=== PATIENT | male | born 1960 | race Caucasian/White ===

== ENCOUNTER 2017-03-26 09:16 | Emergency (ER) | payer MEDICARE ==
[~2017-03-26] VITALS: Ht 177.8 cm; Wt 163.3 kg
[~2017-03-26 09:16] MED LIST: ABILIFY15 MG PO; BACTRIM DS 8001 TAB PO; BACTROBAN OINT0.9 GM NAS; CIPRO500 MG PO; CIPROFLOXACIN500 MG PO; COGENTIN0.5 MG PO; CUBICIN500 MG IV; DAYPRO600 M1 PO; DEPAKOTE ER250 MG PO; DEPAKOTE500 MG PO; DOXYCYCLINE HY100 M5 PO; GABAPENTIN300 MG PO; HUMALOG100 U/ML SC; HYDROCODONE BIT1 T11 PO; HYDROCODONE/ACE1 T11 PO; HYDROCODONE/ACE1 T12 PO; INVEGA6 MG PO; KEFLEX500 MG PO; LANTUS100 U/ML SC; LASIX40 MG PO; LEVOFLOXACIN500 MG PO; LISINOPRIL2.5 MG PO; METFORMIN HCL1000 MG PO; MIRTAZAPINE15 M2 PO; NEURONTIN300 MG PO; POTASSIUM20 MEQ PO; PRAVASTATIN SOD40 MG PO; PROZAC20 MG PO; REQUIP3 MG PO; REQUIP4 MG PO; RISPERDAL M-TAB2 MG PO; RISPERDAL0.25 MG PO; RISPERDAL1 M1 PO; RISPERDAL2 M1 PO; ROBAXIN750 MG PO; ROPINIROLE HYDRO3 MG PO; SEROQUEL XR300 MG PO; SIMVASTATIN40 MG PO; TRICOR145 MG PO; VICODIN 5/500 505 MG PO; VICODIN 500 MG-1 TAB PO; VICODIN ES 7501 TAB PO; VISTARIL25 M2 PO; VISTARIL25 MG PO; VITAMIN D50000 I1 PO; WARFARIN; WARFARIN10 MG PO; XARE15TA PO; XARE20MG PO; ZAROXOLYN2.5 MG PO; Zaroxolyn,Diul2.5 MG PO
[2017-03-26] MEDS ORDERED: ZOCOR40 MG PO (09:28)
[2017-03-26] MEDS ORDERED: XARE20MG PO (09:28)
[2017-03-26] MEDS ORDERED: METFORMIN1000 MG PO (09:28)
[2017-03-26] MEDS ORDERED: RISPERDAL2 M1 PO (09:29)
[2017-03-26] MEDS ORDERED: GABAPENTIN600 MG PO (09:29)
[2017-03-26] MEDS ORDERED: REQUIP3 M1 PO (09:29)
[2017-03-26] MEDS ORDERED: DAILY VALUE1 EACH PO (09:30)
[2017-03-26] MEDS ORDERED: DEPAKOTE DR500 MG PO (09:30)
[2017-03-26] MEDS ORDERED: ATIVAN0.5 MG PO (09:30)
[2017-03-26 09:41] LABS: BASO % 0.5 % (0.0-1.0); EOS # 0.2 10*3/uL (0.0-0.4); EOS % 2.5 % (1.0-4.0); HEMATOCRIT 42.9 % (42.0-52.0); HEMOGLOBIN 14.7 g/dl (14.0-18.0); IG # 0.1 10*3/uL (0.0-0.1); LYMPH # 2.4 10*3/uL (1.3-4.4); LYMPH % 27.9 % (27.0-41.0); MEAN CELL VOLUME 92.1 fl (80.0-94.0); MEAN CORPUSCULAR HGB 31.5 pg (27.0-31.0); MEAN CORPUSCULAR HGB CONC 34.3 g/dl (33.0-37.0); MONO # 0.8 10*3/uL (0.1-1.0); MONO % 8.9 % (3.0-9.0); NEUT % 59.6 % (47.0-73.0); PLATELET COUNT AUTOMATED 198 10*3/uL (130-400); RED BLOOD COUNT 4.66 10*6/uL (4.50-5.90); RED CELL DISTRI WIDTH 12.2 % (0-14.5); WHITE BLOOD COUNT 8.4 10*3/uL (4.8-10.8)
[2017-03-26 09:56] LABS: ALBUMIN 2.8 gm/dl (3.1-4.5); ALKALINE PHOSPHATASE 83 U/L (45-117); BILIRUBIN, TOTAL 0.6 mg/dl (0.2-1.0); BUN 12 mg/dl (7-24); CARBON DIOXIDE 25 mmol/L (21-32); CHLORIDE 106 mmol/L (98-107); EST GLOM FILT AFRICAN AMERICAN > 60 ml/min; GLUCOSE 260 mg/dL (65-99); POTASSIUM 4.4 mmol/L (3.5-5.1); SGOT/AST 10 IU/L (3-35); SGPT/ALT 19 U/L (12-78); SODIUM 143 mmol/L (136-145); TOTAL PROTEIN 6.2 gm/dL (6.4-8.2)
[2017-03-26 10:14] LABS: BILIRUBIN NEGATIVE (NEGATIVE); BLOOD NEGATIVE (NEGATIVE); CLARITY SL CLOUDY (CLEAR); COLOR YELLOW (YELLOW); GLUCOSE 3+ (NEGATIVE); KETONE TRACE (NEGATIVE); LEUKO ESTERASE NEGATIVE (NEGATIVE); NITRITE NEGATIVE (NEGATIVE); PROTEIN NEGATIVE (NEGATIVE)
[2017-03-26 10:22] LABS: EPITHELIAL CELLS 0-2; RBC 0-2 rbc/hpf (0-2); URINE REFLEX COMMENT YES (NO); WBC 41-50 wbc/hpf (0-5)
[2017-03-26 10:24] LABS: URINE AMPHETAMINES < 1000 (1000ng/ml); URINE BARBITURATES < 200 (200ng/ml); URINE COCAINE < 300 (300ng/ml)
== END 2017-03-26 20:35 | disposition home health service (06) ==
LOC: ED 09:16
PROVIDERS: Registered Nurse
DX: R45.851 Suicidal ideations (principal); T40.2X1A Poisoning by other opioids, accidental (unintentional), initial encounter; G89.29 Other chronic pain; M54.9 Dorsalgia, unspecified; Z88.0 Allergy status to penicillin; Z88.1 Allergy status to other antibiotic agents; Z90.49 Acquired absence of other specified parts of digestive tract; Z79.899 Other long term (current) drug therapy

== ENCOUNTER 2017-03-27 01:32 | Emergency (ER) | payer MEDICARE ==
[~2017-03-27] VITALS: Ht 177.8 cm; Wt 163.3 kg
[~2017-03-27 01:32] MED LIST changes: +ATIVAN0.5 MG PO; +DAILY VALUE1 EACH PO; +DEPAKOTE DR500 MG PO; +GABAPENTIN600 MG PO; +METFORMIN1000 MG PO; +REQUIP3 M1 PO; +ZOCOR40 MG PO
[2017-03-27 02:15] LABS: BASO % 0.3 % (0.0-1.0); EOS # 0.3 10*3/uL (0.0-0.4); EOS % 2.5 % (1.0-4.0); HEMATOCRIT 42.1 % (42.0-52.0); HEMOGLOBIN 14.5 g/dl (14.0-18.0); IG # 0.1 10*3/uL (0.0-0.1); LYMPH # 2.8 10*3/uL (1.3-4.4); LYMPH % 28.8 % (27.0-41.0); MEAN CELL VOLUME 90.7 fl (80.0-94.0); MEAN CORPUSCULAR HGB 31.3 pg (27.0-31.0); MEAN CORPUSCULAR HGB CONC 34.4 g/dl (33.0-37.0); MEAN PLATELET VOLUME 9.8 fl (9.6-12.3); MONO # 0.9 10*3/uL (0.1-1.0); NEUT # 5.8 10*3/uL (2.3-7.9); NEUT % 58.9 % (47.0-73.0); PLATELET COUNT AUTOMATED 202 10*3/uL (130-400); RED BLOOD COUNT 4.64 10*6/uL (4.50-5.90); RED CELL DISTRI WIDTH 12.1 % (0-14.5); WHITE BLOOD COUNT 9.8 10*3/uL (4.8-10.8)
[2017-03-27 02:26] LABS: BUN 18 mg/dl (7-24); CARBON DIOXIDE 26 mmol/L (21-32); CHLORIDE 104 mmol/L (98-107); EST GLOM FILT AFRICAN AMERICAN > 60 ml/min; GLUCOSE 261 mg/dL (65-99); SODIUM 142 mmol/L (136-145)
== END 2017-03-27 16:09 ==
LOC: ED 01:32
PROVIDERS: Emergency Medicine Emergency Medical Services
DX: F32.9 Major depressive disorder, single episode, unspecified (principal); I48.2 Chronic atrial fibrillation; E78.5 Hyperlipidemia, unspecified; I10 Essential (primary) hypertension; E11.621 Type 2 diabetes mellitus with foot ulcer; E11.40 Type 2 diabetes mellitus with diabetic neuropathy, unspecified; M19.90 Unspecified osteoarthritis, unspecified site; F31.9 Bipolar disorder, unspecified; F25.0 Schizoaffective disorder, bipolar type; Z88.0 Allergy status to penicillin; Z86.718 Personal history of other venous thrombosis and embolism; Z88.1 Allergy status to other antibiotic agents; Z79.899 Other long term (current) drug therapy

== ENCOUNTER 2017-05-03 09:08 | Inpatient (IN) | payer MEDICARE ==
[~2017-05-03] VITALS: Ht 177.8 cm; Wt 152.1 kg
--- NOTE | ~2017-05-03 | PR ---
[place], [place] PROGRESS NOTE [id number] UNIT #: [id number] ROOM: 529 DOCTOR: GIULIANA HACKETT DPM BIRTHDATE: [birth year] DOS: SUBJECTIVE: The patient was seen for followup of cellulitis of the right leg ulceration, plantar right hallux and trauma to the left hallux nail bed. OBJECTIVE: There is decreased erythema and edema to the lower right leg. Decreased pain noted, improving with the Tubigrip. Bilateral hallux improving. Left hallux nail bed granulating well without infection. Ulceration to plantar right hallux improving also at this time. ASSESSMENT: Cellulitis, lymphedema of right lower leg. Improving ulceration to lateral right hallux, post-trauma to the nail bed of left hallux. PLAN: Evaluation and management. Continue Tubigrip. Discussed with the patient that I think he is okay to be discharged tomorrow from Podiatry standpoint. The patient will be followed at the wound care center with Dr. Jenkins. I discussed this case with Dr. Jenkins for followup of the lower extremity edema, erythema and the ulceration to the plantar right hallux. The patient will be seen by Dr. Moore if he is still in house tomorrow. GIULIANA HACKETT DPM CM:VANESSA [phone] GIULIANA HACKETT DPM 05/06/17 1542 interface
--- NOTE | ~2017-05-03 | PR ---
[place], [place] PROGRESS NOTE NAME: OLLIE GONZALEZ UNIT #: [id number] ROOM: 529 DOCTOR: GIULIANA HACKETT DPM BIRTHDATE: [birth year] DOS: 05/04/2017 SUBJECTIVE: The patient was seen for followup of cellulitis, edema of the right leg and ulceration of the right great toe and post-self nail avulsion of the left hallux. The patient is still experiencing discomfort at this time. OBJECTIVE: There is decreased edema and erythema of the right lower leg. The ulceration of plantar right hallux is still full thickness subcutaneous tissue level. No signs of purulent drainage or foul odor noted at this time. The left hallux nail plate is improving with conservative treatment. IMAGING: The patient's right foot MRI revealed ulceration at plantar aspect of the right hallux with evidence of diffuse cellulitis, significant soft tissue swelling, no drainable abscess or fluid collection, myositis of intrinsic muscles noted. No evidence of acute osteomyelitis. ASSESSMENT: Cellulitis, edema of lower right leg, ulceration of plantar right hallux, post-nail avulsed contusion with damaged nail, left hallux. PLAN: Continue antibiotics and Tubigrip. Continue local wound care. The patient will be seen tomorrow. Possible application of Unna boots if warranted and cellulitis has decreased to the right lower leg. GIULIANA HACKETT DPM CM:VANESSA [phone] GIULIANA HACKETT DPM 05/04/175 interface
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
--- NOTE | ~2017-05-03 | CON ---
[place], [place] REPORT OF CONSULTATION NAME: OLLIE GONZALEZ UNIT #: [id number] ROOM: 529 DOCTOR: GIULIANA HACKETT DPM BIRTHDATE: [birth year] DOS: 05/03/2017 SUBJECTIVE: The patient presents as a 57-year-old male with chief complaint of having pain in both feet. The patient self avulsed his left great toenail. He has had an ulcer to the bottom of his right great toe for over a month. He has had redness and swelling to the leg. The patient admits to intermittent fevers up to 100 over the past few days. PAST MEDICAL HISTORY: Adjustment disorder with depressed mood, chronic AFib, depressed, bipolar disorder, diabetes type 2, hyperlipidemia, hypertension, history of DVT, lymphedema of both lower extremities, acute neuropathy, obesity, osteoarthritis, restless leg syndrome, schizoaffective disorder bipolar type. PAST SURGICAL HISTORY: Cholecystectomy and umbilical hernia repair. SOCIAL HISTORY: Denies alcohol, illicit drug use or tobacco. FAMILY HISTORY: Mother , unknown cause. Father is estranged. ALLERGIES: PENICILLIN, CHOCOLATE FLAVOR, MINOCYCLINE. PHYSICAL EXAMINATION: EXTREMITIES: Lower extremity examination, pedal pulses nonpalpable bilateral due to edema. There is erythema and cellulitis to the right lower extremity, lymphedema, venous insufficiency. Venous Doppler was negative for DVT. There is self avulsed left hallux nail plate noted. No signs of sinus tract or abscess. Radiographs of the left foot revealed extensive soft tissue edema. No acute fracture noted. There is an ulceration, which is full thickness to subcutaneous tissue level plantar aspect right hallux evident for over a month. ASSESSMENT: Possible underlying osteomyelitis, right hallux; diabetic ulceration, right hallux. Venous stasis, lymphedema, cellulitis right leg. Self avulsed left hallux nail plate. PLAN: Evaluation and management. Ordered arterial vascular testing Doppler bilateral lower extremity. Ordered an MRI of the right forefoot to rule out underlying osteomyelitis of the right hallux secondary to longstanding ulcerations, cellulitis, and edema. The patient has already had pending radiographs ordered of the right foot. Continue Bactroban dressings to the right hallux. The patient will be seen again tomorrow for followup. [place], [place] REPORT OF CONSULTATION NAME: OLLIE GONZALEZ UNIT #: [id number] ROOM: 529 DOCTOR: GIULIANA HACKETT DPM BIRTHDATE: [birth year] GIULIANA HACKETT DPM CM:CONSTR:REPORT OF CONSULTATION 1630 05/03/17 4876 interface
--- NOTE | ~2017-05-03 | PR ---
[place], [place] PROGRESS NOTE NAME: OLLIE GONZALEZ UNIT #: [id number] ROOM: 529 DOCTOR: OLLIE GENAO DPM BIRTHDATE: [birth year] DOS: 05/07/2017 SUBJECTIVE: The patient was seen for followup of both great toes as well as right leg cellulitis. He states still having some discomfort in the right leg, but it is better. He is asking when he can be discharged at this time. OBJECTIVE: EXTREMITIES: There is minimal edema and erythema noted about the right lower leg, minimal increased temperature. No real open areas or signs of infection. Negative Homans sign is seen bilaterally. The left great toe is clean and granular with no signs of infection. Overall, both areas look good. ASSESSMENT: Resolving cellulitis, right leg; chronic venous insufficiency; lymphedema bilaterally; post-trauma with removal of the nail, left great toe. PLAN: Again, the patient is using Unna boots. We will continue with Tubigrip. Really no further wound care is needed to the toes. It is okay to be discharged from Podiatry standpoint regarding the above mentioned problems. He can follow up as an outpatient. So from Podiatry standpoint, the patient can be discharged. OLLIE GENAO DPM CM:VANESSA [phone] OLLIE GENAO DPM 05/07/171713 interface
--- NOTE | ~2017-05-03 | PR ---
[place], [place] PROGRESS NOTE NAME: [id number] UNIT #: [id number] ROOM: 529 DOCTOR: GIULIANA HACKETT DPM BIRTHDATE: [birth year] DOS: 05/05/2017 SUBJECTIVE: The patient was seen for followup for cellulitis of right leg, ulceration to plantar right hallux and self avulsion from trauma to the left hallux nail plate. The patient states he still experiences pain to the right leg, although feels better than the day he was admitted. OBJECTIVE: There is decreased erythema and edema to the right lower leg. There is still pain upon palpation of the anterior leg. Ulceration to plantar right hallux is granulating, is full thickness to subcutaneous tissue level, but improved from previous exam. Decreased erythema overall. Left hallux nail bed granulating well without complication. ASSESSMENT: Cellulitis, lymphedema of right lower leg ulceration to plantar right hallux, diabetes, post-trauma with damage to nail plate of left hallux. PLAN: Evaluation and management. I had recommended Unna boot to the patient, which he refused. He stated they hurt his leg while they are on. The patient's Tubigrip was rolled down his leg. The patient was advised he needs to keep it extended full with the full length of the leg. Otherwise, will cause discomfort in areas of wrinkling. The patient understood this. We will continue with the Tubigrip, continue local wound care of bilateral hallux, continue antibiotics. The patient will be seen on Sunday for followup and possible discharge at that time. GIULIANA HACKETT DPM CM:PNMAGALYS [phone] GIULIANA HACKETT DPM 05/05/17 1115 interface
[2017-05-03 09:08] VITALS: BP 114/60
[2017-05-03 10:05] LABS: BASO % 0.4 % (0.0-1.0); EOS # 0.2 10*3/uL (0.0-0.4); EOS % 1.4 % (1.0-4.0); HEMATOCRIT 41.8 % (42.0-52.0); HEMOGLOBIN 13.9 g/dl (14.0-18.0); IG # 0.3 10*3/uL (0.0-0.1); LYMPH # 1.7 10*3/uL (1.3-4.4); LYMPH % 16.3 % (27.0-41.0); MEAN CELL VOLUME 92.9 fl (80.0-94.0); MEAN CORPUSCULAR HGB 30.9 pg (27.0-31.0); MEAN CORPUSCULAR HGB CONC 33.3 g/dl (33.0-37.0); MEAN PLATELET VOLUME 9.9 fl (9.6-12.3); MONO # 0.9 10*3/uL (0.1-1.0); NEUT # 7.6 10*3/uL (2.3-7.9); NEUT % 71.4 % (47.0-73.0); PLATELET COUNT AUTOMATED 252 10*3/uL (130-400); RED CELL DISTRI WIDTH 12.3 % (0-14.5); WHITE BLOOD COUNT 10.6 10*3/uL (4.8-10.8)
[2017-05-03 10:13] LABS: PROTHROMBIN TIME 10.7 SECONDS (9.0-12.4)
[2017-05-03 10:21] LABS: ALBUMIN 2.4 gm/dl (3.1-4.5); ALKALINE PHOSPHATASE 78 U/L (45-117); BILIRUBIN, TOTAL 0.6 mg/dl (0.2-1.0); BUN 20 mg/dl (7-24); C-REACTIVE PROTEIN 3.77 MG/DL (0-0.3); CARBON DIOXIDE 28 mmol/L (21-32); CHLORIDE 104 mmol/L (98-107); CKMB 2.6 ng/ml (0.5-3.6); CPK 747 U/L (39-308); EST GLOM FILT AFRICAN AMERICAN > 60 ml/min; GLUCOSE 265 mg/dL (65-99); MAGNESIUM 1.3 mg/dL (1.5-2.1); POTASSIUM 3.8 mmol/L (3.5-5.1); SGOT/AST 38 IU/L (3-35); SGPT/ALT 37 U/L (12-78); SODIUM 138 mmol/L (136-145); TOTAL PROTEIN 6.3 gm/dL (6.4-8.2)
[2017-05-03 10:24] LABS: TROPONIN I < 0.015 ng/ml (<0.045)
[2017-05-03 12:58] VITALS: BP 138/88
[2017-05-03 13:00] VITALS: BP 128/75
[2017-05-03 14:00] VITALS: BP 138/88
[2017-05-03] MEDS ORDERED: MAXITROL OPHTHAL5 ML OU (14:47)
[2017-05-03 16:00] VITALS: BP 132/79
[2017-05-03 20:00] VITALS: BP 112/45
[2017-05-04] VITALS: BP 119/48
[2017-05-04 05:43] LABS: HEMATOCRIT 39.6 % (42.0-52.0); HEMOGLOBIN 13.2 g/dl (14.0-18.0); MEAN CELL VOLUME 93.2 fl (80.0-94.0); MEAN CORPUSCULAR HGB 31.1 pg (27.0-31.0); MEAN CORPUSCULAR HGB CONC 33.3 g/dl (33.0-37.0); MEAN PLATELET VOLUME 9.8 fl (9.6-12.3); PLATELET COUNT AUTOMATED 253 10*3/uL (130-400); RED BLOOD COUNT 4.25 10*6/uL (4.50-5.90); RED CELL DISTRI WIDTH 12.3 % (0-14.5)
[2017-05-04 05:49] LABS: ALBUMIN 2.2 gm/dl (3.1-4.5); ALKALINE PHOSPHATASE 71 U/L (45-117); BILIRUBIN, TOTAL 0.6 mg/dl (0.2-1.0); BUN 17 mg/dl (7-24); CARBON DIOXIDE 27 mmol/L (21-32); CHLORIDE 106 mmol/L (98-107); CHOLESTEROL 113 mg/dL (<200); EST GLOM FILT AFRICAN AMERICAN > 60 ml/min; GLUCOSE 170 mg/dL (65-99); HDL CHOLESTEROL 32 mg/dl (40-60); LDL CHOLESTEROL 54 mg/dL (9-159); MAGNESIUM 1.5 mg/dL (1.5-2.1); PHOSPHOROUS 2.3 mg/dL (2.5-4.9); POTASSIUM 3.7 mmol/L (3.5-5.1); SGOT/AST 29 IU/L (3-35); SGPT/ALT 31 U/L (12-78); SODIUM 140 mmol/L (136-145); TOTAL PROTEIN 5.8 gm/dL (6.4-8.2); TRIGLYCERIDES 134 mg/dl (<150); VLDL CHOLESTEROL 27 mg/dL (6-40)
[2017-05-04 06:00] LABS: CPK 438 U/L (39-308)
[2017-05-04 06:45] LABS: EOSINOPHIL # 0.2 10*3/uL (0-0.4); EOSINOPHILS 2 % (1-4); LYMPHOCYTE # 1.9 10*3/uL (1.3-4.4); METAMYELOCYTES 1 % (0-0); MONOCYTE # 0.5 10*3/uL (0.1-1.0); NEUTROPHIL # 6.4 10*3/uL (2.3-7.9); NEUTROPHILS 71 % (47-73); PLATELET SUFFICIENCY NORMAL (NORMAL); TOTAL CELLS COUNTED 100 #CELLS
[2017-05-04 06:59] LABS: HEMOGLOBIN A1c 9.2 % (4.8-5.6)
[2017-05-04 07:31] LABS: VITAMIN D, 25-HYDROXY 33.8 ng/mL (30-100)
[2017-05-04 07:32] LABS: FOLIC ACID 15.28 ng/mL (>5.38)
[2017-05-04 08:00] VITALS: BP 129/73
[2017-05-04 12:00] VITALS: BP 124/78
[2017-05-04 16:00] VITALS: BP 117/68
[2017-05-04 20:00] VITALS: BP 124/72
[2017-05-05] VITALS: BP 101/85
[2017-05-05 06:40] LABS: BUN 15 mg/dl (7-24); CARBON DIOXIDE 26 mmol/L (21-32); CHLORIDE 104 mmol/L (98-107); EST GLOM FILT AFRICAN AMERICAN > 60 ml/min; GLUCOSE 273 mg/dL (65-99); SODIUM 138 mmol/L (136-145)
[2017-05-05 08:00] VITALS: BP 116/62
[2017-05-05 12:00] VITALS: BP 124/76
[2017-05-05 16:00] VITALS: BP 135/73
[2017-05-05 20:00] VITALS: BP 116/65
[2017-05-06] VITALS: BP 118/59
[2017-05-06 05:53] LABS: ALBUMIN 2.4 gm/dl (3.1-4.5); ALKALINE PHOSPHATASE 71 U/L (45-117); BILIRUBIN, TOTAL 0.5 mg/dl (0.2-1.0); BUN 14 mg/dl (7-24); CARBON DIOXIDE 28 mmol/L (21-32); CHLORIDE 103 mmol/L (98-107); CPK 107 U/L (39-308); EST GLOM FILT AFRICAN AMERICAN > 60 ml/min; GLUCOSE 241 mg/dL (65-99); PHOSPHOROUS 3.1 mg/dL (2.5-4.9); POTASSIUM 3.9 mmol/L (3.5-5.1); SGOT/AST 24 IU/L (3-35); SGPT/ALT 28 U/L (12-78); SODIUM 141 mmol/L (136-145); TOTAL PROTEIN 6.2 gm/dL (6.4-8.2); VANCOMYCIN TROUGH 15.1 ug/mL (10-20)
[2017-05-06 06:17] LABS: BASO % 0.4 % (0.0-1.0); EOS # 0.4 10*3/uL (0.0-0.4); EOS % 4.8 % (1.0-4.0); HEMATOCRIT 42.3 % (42.0-52.0); HEMOGLOBIN 13.9 g/dl (14.0-18.0); IG # 0.1 10*3/uL (0.0-0.1); LYMPH # 1.8 10*3/uL (1.3-4.4); LYMPH % 23.9 % (27.0-41.0); MEAN CORPUSCULAR HGB 30.5 pg (27.0-31.0); MEAN CORPUSCULAR HGB CONC 32.9 g/dl (33.0-37.0); MEAN PLATELET VOLUME 9.9 fl (9.6-12.3); MONO # 0.7 10*3/uL (0.1-1.0); MONO % 9.8 % (3.0-9.0); NEUT # 4.3 10*3/uL (2.3-7.9); NEUT % 59.2 % (47.0-73.0); PLATELET COUNT AUTOMATED 252 10*3/uL (130-400); RED BLOOD COUNT 4.55 10*6/uL (4.50-5.90); RED CELL DISTRI WIDTH 12.5 % (0-14.5); WHITE BLOOD COUNT 7.3 10*3/uL (4.8-10.8)
[2017-05-06 08:00] VITALS: BP 122/52
[2017-05-06 12:00] VITALS: BP 136/64
[2017-05-06 16:00] VITALS: BP 119/63
[2017-05-06 20:00] VITALS: BP 124/65
[2017-05-07] VITALS: BP 124/65; BP 142/85
[2017-05-07 04:00] VITALS: BP 142/85
[2017-05-07 06:38] LABS: ALBUMIN 2.7 gm/dl (3.1-4.5); ALKALINE PHOSPHATASE 74 U/L (45-117); BILIRUBIN, TOTAL 0.6 mg/dl (0.2-1.0); BUN 18 mg/dl (7-24); CARBON DIOXIDE 28 mmol/L (21-32); CHLORIDE 104 mmol/L (98-107); EST GLOM FILT AFRICAN AMERICAN > 60 ml/min; GLUCOSE 134 mg/dL (65-99); POTASSIUM 3.9 mmol/L (3.5-5.1); SGOT/AST 18 IU/L (3-35); SGPT/ALT 25 U/L (12-78); SODIUM 140 mmol/L (136-145); TOTAL PROTEIN 6.8 gm/dL (6.4-8.2)
[2017-05-07 08:00] VITALS: BP 131/85
[2017-05-07 12:00] VITALS: BP 132/65
[2017-05-07] MEDS ORDERED: KEFLEX500 M1 PO (14:23)
[2017-05-07] MEDS ORDERED: GLIPIZIDE5 MG PO (15:08)
[2017-05-07] MEDS ORDERED: K-PHOS500 MG PO (15:08)
== END 2017-05-07 15:45 | disposition home or self-care (01) | DRG 602 ==
LOC: ED 09:08 → EDHOLD 12:06 → 5E 12:06
PROVIDERS: Emergency Medicine; Family Medicine; Hospitalist; Internal Medicine
DX: L03.115 Cellulitis of right lower limb (principal); E43 Unspecified severe protein-calorie malnutrition; I21.4 Non-ST elevation (NSTEMI) myocardial infarction; E11.621 Type 2 diabetes mellitus with foot ulcer; E11.40 Type 2 diabetes mellitus with diabetic neuropathy, unspecified; I48.0 Paroxysmal atrial fibrillation; F31.60 Bipolar disorder, current episode mixed, unspecified; Z68.42 Body mass index [BMI] 45.0-49.9, adult; E66.01 Morbid (severe) obesity due to excess calories; I48.2 Chronic atrial fibrillation; E78.5 Hyperlipidemia, unspecified; L97.519 Non-pressure chronic ulcer of other part of right foot with unspecified severity; I89.0 Lymphedema, not elsewhere classified; I10 Essential (primary) hypertension; S91.209A Unspecified open wound of unspecified toe(s) with damage to nail, initial encounter; A49.01 Methicillin susceptible Staphylococcus aureus infection, unspecified site; M19.90 Unspecified osteoarthritis, unspecified site; S40.021A Contusion of right upper arm, initial encounter; G25.81 Restless legs syndrome; F25.0 Schizoaffective disorder, bipolar type; Z87.440 Personal history of urinary (tract) infections; Z90.49 Acquired absence of other specified parts of digestive tract; Y08.89XA Assault by other specified means, initial encounter; Z88.0 Allergy status to penicillin; Z86.718 Personal history of other venous thrombosis and embolism; Z88.1 Allergy status to other antibiotic agents; Z91.018 Allergy to other foods; Y93.89 Activity, other specified; Y92.89 Other specified places as the place of occurrence of the external cause; Y99.8 Other external cause status; S90.32XA Contusion of left foot, initial encounter; I87.8 Other specified disorders of veins

== ENCOUNTER → 2017-05-11 | Outpatient (CLI) | payer MEDICARE ==
[~2017-05-11] MED LIST changes: +GLIPIZIDE5 MG PO; +K-PHOS500 MG PO; +KEFLEX500 M1 PO; +MAXITROL OPHTHAL5 ML OU
--- NOTE | ~2017-05-11 | PR ---
[place], [place] PROGRESS NOTE NAME: OLLIE GONZALEZ UNIT #: [id number] ROOM: DOCTOR: JOSE PECK DPM BIRTHDATE: [birth year] DOS: 05/11/2017 SUBJECTIVE: This is a new patient seen at the [facility] for chief complaint of plantar surface right great toe ulcer. The patient had been admitted to [facility] for abscess, cellulitis and ulceration of the right foot. He did an extended stay here with IV antibiotics. He has been tapered to p.o. antibiotics. MRI had shown there was no abscess or osteomyelitis or need for surgical intervention. He did see the foot and ankle patch worker while inpatient and they managed his care at that time. He did have arterial studies which show adequate blood flow to the lower extremity and his sugars have been monitored. They were somewhat elevated, but within normal limits. PHYSICAL EXAMINATION: It is noted that the right great toe plantar surface ulcer is 1 cm x 0.9 cm x 0.1 cm. This area has callused tissue and debris, which was debrided through to subcutaneous. No bleeding or pain elicited with this debridement. No evidence of drainage or chronic infection noted. There is ulceration. IMPRESSION: Grade 2 diabetic ulceration, plantar surface, right great toe. PLAN: 1. Evaluate. 2. Debridement was performed through to subcutaneous. The patient will use Puracol Ag and a big bulky football type bandage. The patient is to reappoint at the [facility] Center in 1 week for followup of this complaint. JOSE PECK DPM CM:PNTRANS [phone] JOSE PECK DPM 05/11/17 1252 interface
== END | disposition home or self-care (01) ==
LOC: WOUNDCARE 08:14
DX: E11.621 Type 2 diabetes mellitus with foot ulcer (principal); L97.421 Non-pressure chronic ulcer of left heel and midfoot limited to breakdown of skin; L97.511 Non-pressure chronic ulcer of other part of right foot limited to breakdown of skin

== ENCOUNTER → 2017-05-18 | Outpatient (CLI) | payer MEDICARE ==
--- NOTE | ~2017-05-18 | PR ---
[place], [place] PROGRESS NOTE NAME: OLLIE GONZALEZ UNIT #: [id number] ROOM: DOCTOR: JOSE PECK DPM BIRTHDATE: [birth year] DOS: 05/18/2017 SUBJECTIVE: The patient was seen for followup of right great toe plantar foot wound. Today, he presents with a bandage that had been changed at home. He was given instructions to leave previous bandage on, clean, dry and intact, but apparently felt like he needs to remove it, to take a shower. His has been bandaging it with supplies that they had at home. He does have more pain to the area today. He states that he has been out of his Keflex for 2 days and the foot and toe is very painful, but the entire foot is also painful too. PHYSICAL EXAMINATION: Upon physical exam of lower extremities noted that the ulceration measures 0.7 x 0.4 x 0.1. There is callus tissue, which was debrided through and slough at the base that was debrided through to subcutaneous. Minimal bleeding was controlled via pressure. No active drainage, odor or purulence is noted. The whole foot is warm and leg, so the toe is not any more warm than the rest of the lower extremity. There is some erythema around the wound at this time, but not anything other than local erythema and the most probable hyperemia, but due to the increased pain I am concerned that there might be developing an abscess of some sort. IMPRESSION: Grade 1 diabetic ulceration with increased pain. PLAN: 1. Evaluate. 2. Debridement was performed today through subcutaneous with a 15 blade. We will start the patient on Augmentin and order bandages for him, which will include a horseshoe shaped pad to offload the wound, Puracol Ag and a dry bulky dressing. This is to be changed every other day. I would like to see him back next week. He says he has conflict with 2 doctor's appointments. He was given option to see Dr. Mireles in my absence, but he would like to see me in 2 weeks. Sooner if the pain symptoms do not decrease, then he is either to call us or go through the Emergency Department sooner than that in 2 weeks' time. JOSE PECK DPM CM:VANESSA [phone] JOSE PECK DPM 05/19/17 1306 interface
== END | disposition home or self-care (01) ==
LOC: WOUNDCARE 03:43
DX: E11.621 Type 2 diabetes mellitus with foot ulcer (principal); L97.511 Non-pressure chronic ulcer of other part of right foot limited to breakdown of skin; L97.421 Non-pressure chronic ulcer of left heel and midfoot limited to breakdown of skin; L84 Corns and callosities

== ENCOUNTER 2017-05-29 08:13 | Emergency (ER) | payer MEDICARE ==
[~2017-05-29] VITALS: Ht 177.8 cm; Wt 152.4 kg
[2017-05-29 09:04] LABS: BASO % 0.3 % (0.0-1.0); EOS # 0.2 10*3/uL (0.0-0.4); EOS % 2.7 % (1.0-4.0); HEMATOCRIT 39.2 % (42.0-52.0); HEMOGLOBIN 12.9 g/dl (14.0-18.0); LYMPH # 1.8 10*3/uL (1.3-4.4); LYMPH % 24.7 % (27.0-41.0); MEAN CELL VOLUME 93.6 fl (80.0-94.0); MEAN CORPUSCULAR HGB 30.8 pg (27.0-31.0); MEAN CORPUSCULAR HGB CONC 32.9 g/dl (33.0-37.0); MEAN PLATELET VOLUME 9.9 fl (9.6-12.3); MONO # 0.9 10*3/uL (0.1-1.0); MONO % 11.7 % (3.0-9.0); NEUT # 4.5 10*3/uL (2.3-7.9); NEUT % 60.2 % (47.0-73.0); PLATELET COUNT AUTOMATED 194 10*3/uL (130-400); RED BLOOD COUNT 4.19 10*6/uL (4.50-5.90); RED CELL DISTRI WIDTH 12.6 % (0-14.5); WHITE BLOOD COUNT 7.4 10*3/uL (4.8-10.8)
[2017-05-29 09:14] LABS: BUN 30 mg/dl (7-24); CHLORIDE 107 mmol/L (98-107); CREATININE 0.73 mg/dL (0.70-1.30); POTASSIUM 4.3 mmol/L (3.5-5.1); SODIUM 142 mmol/L (136-145)
[2017-05-29] MEDS ORDERED: KEFLEX500 M1 PO (11:01)
== END 2017-05-29 11:38 | disposition home or self-care (01) ==
LOC: ED 08:13
PROVIDERS: Emergency Medicine
DX: L03.115 Cellulitis of right lower limb (principal); R11.0 Nausea; R19.7 Diarrhea, unspecified; R61 Generalized hyperhidrosis; I10 Essential (primary) hypertension; I48.91 Unspecified atrial fibrillation; E78.5 Hyperlipidemia, unspecified; M19.90 Unspecified osteoarthritis, unspecified site; E11.621 Type 2 diabetes mellitus with foot ulcer; L97.509 Non-pressure chronic ulcer of other part of unspecified foot with unspecified severity; E11.40 Type 2 diabetes mellitus with diabetic neuropathy, unspecified; Z88.0 Allergy status to penicillin; Z90.49 Acquired absence of other specified parts of digestive tract; Z88.1 Allergy status to other antibiotic agents; Z91.018 Allergy to other foods; Z79.899 Other long term (current) drug therapy

== ENCOUNTER 2017-06-05 01:43 | Inpatient (IN) | payer MEDICARE ==
[~2017-06-05] VITALS: Ht 177.8 cm; Wt 136.1 kg
--- NOTE | ~2017-06-05 | CON ---
[place], [place] REPORT OF CONSULTATION NAME: OLLIE GONZALEZ UNIT #: [id number] ROOM: 419 DOCTOR: HE McguireLAKSHMI BIRTHDATE: [birth year] DOS: 06/06/2017 WOUND CARE CONSULTATION HISTORY OF PRESENT ILLNESS: This is a 57-year-old male who was admitted through the Emergency Department after a fall and complaints of knee pain. He came to the Emergency Department via police from home for psychiatric evaluation. He was medically cleared by ED staff and upon walking out of the Emergency Department, had fallen and hit his right knee and strained his back. He reported that he was unable to put any weight on his knee after the fall and that he had nowhere to go. He was recently discharged about a month ago for a fall and was discharged home with home health. He also does not have a permanent residence and has been staying at the [facility]. Wound Care has been consulted for a chronic diabetic foot ulcer of the right great toe. The patient apparently had been admitted back in late April for a right leg cellulitis and had an open ulcer on the bottom of his right great toe for approximately a month prior to that, so he also had nail avulsion of the left great toe that he had removed himself. He was also noted to have lymphedema and venous stasis changes on his right leg at that time. Work up during that admission showed arterial ultrasound, which was essentially normal. Arterial duplex, no significant occlusive disease. He had an MRI of the foot as well, which showed no drainable abscess or fluid collection. There was some soft tissue swelling noted at that time, but no evidence of osteomyelitis of the right great toe, but since then he has been followed by Dr. Jenkins in the Wound Clinic for the right great toe ulceration and the patient had a collagen dressing applied to the wound that was approximately 2 weeks ago. The wound last time was measuring at 0.7 x 0.4 x 0.1. 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 PAST SURGICAL HISTORY: He is status post cholecystectomy, umbilical hernia and status post debridement. SOCIAL HISTORY: He does not smoke or use illicit drugs. FAMILY HISTORY: Unknown. ALLERGIES: PENICILLIN, WHICH CAUSES SWELLING, CHOCOLATE FLAVOR AND MINOCYCLINE. MEDICATIONS: From home included Depakote 500 p.o. b.i.d., Neurontin 600 p.o. q. 8h., Ativan 1 mg p.o. t.i.d., metformin 1000 p.o. b.i.d., multivitamin daily, risperidone 2 mg p.o. at bedtime, Xarelto 20 mg p.o. daily, ropinirole 6 mg p.o. at bedtime and Zocor 40 mg p.o. at bedtime. REVIEW OF SYSTEMS: He currently is quite frustrated that somebody else wants to [place], [place] REPORT OF CONSULTATION NAME: OLLIE GONZALEZ UNIT #: [id number] ROOM: 419 DOCTOR: LAKSHMI CUTLER M.D. BIRTHDATE: [birth year] look at his toe wound and he says 3 people have already examined and he is quite frustrated. I did ask if he would allow me to look at it and he did agree to it. He says he is aware that. He knows the calluses return and he knows that debridement helps in improving wound healing. PHYSICAL EXAMINATION: VITAL SIGNS: Temperature is 97.7, pulse is 67, respirations are 18 and blood pressure is 112/74. His dorsalis pedis pulses are palpable, it is difficult to feel the posterior tibial due to this severe edema. His toes are warm. It got good capillary refill, so he does have an open area on the right great toe. The measurements are, the length is approximately 0.6 x 0.4 x 0.3. There is a very thick callous. Apparently earlier today when the dressing was changed, it was felt that there may have been some purulent exudate, but currently there is no exudate. There is really no erythema, just thick callous. There is no tenderness or purulence noted. It does not appear to be tender. After discussion with the patient, he did agree to bedside debridement of the wound as there is quite a bit of callous present. He is familiar with debridement and was aware of what it entails. The area was cleansed and prepped. Cetacaine spray was used for topical anesthesia and the area was debrided of hyperkeratotic devitalized tissue only with a 15 blade as well. There was a little bit of undermining that was noted at the 4 o'clock to 6 o'clock position and that was debrided as well with forceps and scissors. There was iatzbkh-rf-myewvcdh bleeding that was controlled with pressure. The post debridement length and width appeared to be slightly smaller. Post debridement, it was noted to be 0.4 x 0.2 x 0.2. I really do not appreciate any significant tracking at this time and the wound looks pretty clean. ASSESSMENT AND PLAN: Diabetic toe ulcer, Rivers stage. He has had vascular workup done, which shows adequate vasculature, previous imaging studies were negative for osteomyelitis. I will go ahead and repeat his x-ray at this time. The wound itself, the margins appeared to be smaller than pictures I have seen from a previous admission and in our Wound Clinic. There is still a little bit of depth to the wound, however, notable so. He was on a collagen dressing per Dr. Jenkins and we will go ahead and use an Aquacel Ag in its place as collagen is not available on the floor and I would try to make it a bulky dressing and have him use the postop shoe. It does look like a repeat x-ray has been ordered. At this time, the wound does not appear to be acutely infected presently. We will see what the x-ray reports show and follow as needed. Once the patient is stabilized from a medical standpoint, he can follow up in the Wound Clinic, with Dr. Jenkins. [place], [place] REPORT OF CONSULTATION NAME: OLLIE GONZALEZ UNIT #: [id number] ROOM: 419 DOCTOR: LAKSHMI CUTLER M.D. BIRTHDATE: [birth year] LAKSHMI CUTLER MD CM:CONSTR:REPORT OF CONSULTATION 1622 06/07/17 1348 interface
--- NOTE | ~2017-06-05 | CON ---
[place], [place] REPORT OF CONSULTATION NAME: OLLIE GONZALEZ UNIT #: [id number] ROOM: 419 DOCTOR: BARBARA CARPENTER ED.D (MO) BIRTHDATE: [birth year] DOS: HISTORY OF PRESENT ILLNESS: The patient is a 57-year-old male referred for psychological evaluation. At the present time, this patient is on the 4th floor at [facility]. The patient is , but is from his . He recently had an incident where he was making threats and was brought to the hospital. He states he fell at the hospital and then was admitted to the medical floor. He has 1 daughter, but is not in contact with her at all. He does go to the [facility] here at [facility]. MEDICAL HISTORY: Pertinent for bipolar disorder, cellulitis, diabetes type 2, atrial fibrillation, DVT, morbid obesity, osteoarthritis, borderline personality disorder and hypertension. MEDICATIONS: Include Depakote, gabapentin, Ativan, metformin, multivitamins, Risperdal, Xarelto, Requip, and Zocor. This patient denies substance abuse issues. He was awake, alert and oriented in all three spheres. He states he is depressed because he has to go to [facility]. He denies suicidal ideation or plan. He states he is not going to eat but he did state the same thing yesterday and did eat. He is extremely manipulative. He will probably need some type of placement at the hospital because of his physical condition. He is supposed to be arrested by the police and taken into custody for probation violation once he is discharged from the hospital. He does follow with Dr. Morales and Dr. Lyons at the counseling center in [place], [place]. He states he does not need to go Behavioral Health Unit. He states that he does not actively want to kill himself. I did discuss this with the resident and suggested that he most likely will need some type of rehabilitation and outpatient psychotherapy. DIAGNOSES: 1. Bipolar 1 -- mixed. 2. Borderline personality disorder. RECOMMENDATIONS: The patient should continue to follow with psychiatric services at the counseling center or through the judiciary system if he is arrested. Thank you very much for this consult. [place], [place] REPORT OF CONSULTATION NAME: OLLIE GONZALEZ UNIT #: [id number] ROOM: [facility] DOCTOR: BARBARA CARPENTER ED.D) BIRTHDATE: [birth year] BARBARA CARPENTER ED.D CM:CONSTR:REPORT OF CONSULTATION 0823 06/08/17 1454 interface
[2017-06-05 01:43] VITALS: BP 105/54
--- NOTE | 2017-06-05 02:00 | NUR ---
PT BELONGINGS PLACED IN BELONGINGS BAG LABELED AND PLACED IN MED ROOM. PT ALSO HAS TWO CANES IN MED ROOM WITH HIS BELONGINGS LABELED WITH HIS NAME.
[2017-06-05 02:14] LABS: BASO % 0.4 % (0.0-1.0); EOS # 0.1 10*3/uL (0.0-0.4); EOS % 0.6 % (1.0-4.0); HEMATOCRIT 43.1 % (42.0-52.0); HEMOGLOBIN 14.8 g/dl (14.0-18.0); LYMPH # 2.1 10*3/uL (1.3-4.4); LYMPH % 20.2 % (27.0-41.0); MEAN CELL VOLUME 90.5 fl (80.0-94.0); MEAN CORPUSCULAR HGB 31.1 pg (27.0-31.0); MEAN CORPUSCULAR HGB CONC 34.3 g/dl (33.0-37.0); MONO % 9.5 % (3.0-9.0); NEUT # 7.2 10*3/uL (2.3-7.9); NEUT % 69.1 % (47.0-73.0); PLATELET COUNT AUTOMATED 223 10*3/uL (130-400); RED BLOOD COUNT 4.76 10*6/uL (4.50-5.90); RED CELL DISTRI WIDTH 12.5 % (0-14.5); WHITE BLOOD COUNT 10.4 10*3/uL (4.8-10.8)
[2017-06-05 02:27] LABS: BUN 26 mg/dl (7-24); CHLORIDE 109 mmol/L (98-107); CREATININE 0.79 mg/dL (0.70-1.30); POTASSIUM 3.8 mmol/L (3.5-5.1); SODIUM 141 mmol/L (136-145)
[2017-06-05 02:28] LABS: ACETAMINOPHEN (TYLENOL) < 2.0 ug/ml (10-30); ETHYL ALCOHOL < 3.0 mg/dl (<3)
--- NOTE | 2017-06-05 03:30 | NUR ---
PT MOVED TO ROOM 2002 AT THIS TIME. PT COOPERATIVE WITH TREATMENT PLAN AT THIS TIME.
[2017-06-05 03:58] LABS: BILIRUBIN 2+ (NEGATIVE); BLOOD 3+ (NEGATIVE); CLARITY SL CLOUDY (CLEAR); COLOR YELLOW (YELLOW); GLUCOSE TRACE (NEGATIVE); KETONE 3+ (NEGATIVE); LEUKO ESTERASE NEGATIVE (NEGATIVE); NITRITE NEGATIVE (NEGATIVE); PH 5.5 (5.0-9.0); SPECIFIC GRAVITY >= 1.030 (1.005-1.030)
[2017-06-05 04:00] VITALS: BP 118/78
--- NOTE | 2017-06-05 04:00 | NUR ---
POLICE CALLED AND INQUIRED ABOUT PATIENT REGARDING WHETHER HE WOULD BE ADMITTED , TRANSFERRED OR DISCHARGED. SPOKE WITH DR. IQBAL. PATIENT WILL STAY HERE TIL MORNING AT LEAST UNTIL HE HAS SPOKEN WITH [facility]/LEGAL ACTIVITY ADJUDICATOR. WILL CONTINUE TO MONITOR.
[2017-06-05 04:06] LABS: URINE AMPHETAMINES < 1000 (1000ng/ml); URINE BARBITURATES < 200 (200ng/ml); URINE BENZODIAZEPINES < 200 (200ng/ml); URINE CANNABINOIDS (THC) < 50 (50ng/ml); URINE COCAINE < 300 (300ng/ml); URINE METHADONE < 300 (300ng/ml); URINE OPIATES < 300 (300ng/ml)
[2017-06-05 04:08] LABS: YEAST 2+
[2017-06-05 04:10] LABS: URINE PHENCYCLIDINE < 25 (25ng/ml)
--- NOTE | 2017-06-05 04:21 | NUR ---
PATIENT PICKED AT SCAB ON LOWER LATERAL ASPECT RIGHT LEG LEAVING AN APROX 4MM OPEN AREA, AREA CLEANED WITH NS / 2X2, BANDAID APPLIED. PATIENT ALSO REQUESTED BOX LUNCH, LAST BOX LUNCH PROVIDED WITH GLASS OF WATER AND DIET BHARATH GAYLE. PATIENT CALM SITTING UPRIGHT IN BED, PATIENT COOPERATIVE.
--- NOTE | 2017-06-05 05:00 | NUR ---
PT IN ROOM AT THIS TIME ATTEMPTING TO CALL HIS . PT INFORMED THAT IT IS TOO EARLY TO CALL ANYONE. PT STATES THAT HE WILL TRY LATER. PT RETURNED TO BED WITHOUT INCIDENT. DOOR TO ROOM OPEN. WILL CONTINUE TO MONITOR.
--- NOTE | 2017-06-05 07:41 | NUR ---
PT REPORT ACCEPTED. PT RESTING WITH EYES CLOSED. MEAL TRAY ORDERED. AWAITING ARRIVAL OF SHERRY TRIPATHI FOR EVAL.
[2017-06-05 08:16] LABS: ACT PARTIAL THROMBO TIME 22.3 SECONDS (20.8-31.5)
--- NOTE | 2017-06-05 08:27 | NUR ---
PT UP, AWAKE, EATING BREAKFAST, INDEPENDENTLY TOILETING. AWAITING RETURN OF NEW LABS TESTS AND ARRIVAL OF SHERRY TRIPATHI.
[2017-06-05 08:28] LABS: ALKALINE PHOSPHATASE 88 U/L (45-117); BUN 26 mg/dl (7-24); CHLORIDE 107 mmol/L (98-107); CKMB 0.8 ng/ml (0.5-3.6); CPK 42 U/L (39-308); CREATININE 0.79 mg/dL (0.70-1.30); LIPASE 210 U/L (73-393); MAGNESIUM 1.7 mg/dL (1.5-2.1); POTASSIUM 3.8 mmol/L (3.5-5.1); SGOT/AST 12 IU/L (3-35); SGPT/ALT 14 U/L (12-78); SODIUM 137 mmol/L (136-145)
[2017-06-05 08:29] LABS: TROPONIN I < 0.015 ng/ml (<0.045); VALPROIC ACID (DEPAKENE) 4.5 ug/ml (50-100)
--- NOTE | 2017-06-05 09:46 | NUR ---
AFTER CONSULTATION WITH SHERRY TRIPATHI, DR EAGLE NOW DIRECTS ME TO CALL [facility] POLICE TO COME PICKUP PT FOR HIS ARREST. DR EAGLE PLANS TO PROVIDE PT SCRIPTS FOR SELECTED MEDS TO TAKE TO [facility].
[2017-06-05] MEDS ORDERED: XARE20MG PO (09:51)
[2017-06-05] MEDS ORDERED: DEPAKOTE500 M1 PO (09:51)
[2017-06-05] MEDS ORDERED: LISINOPRIL2.5 MG PO (09:51)
[2017-06-05] MEDS ORDERED: GLIPIZIDE5 MG PO (09:51)
[2017-06-05] MEDS ORDERED: METFORMIN1000 MG PO (09:51)
[2017-06-05] MEDS ORDERED: ZOCOR40 MG PO (09:51)
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
--- NOTE | 2017-06-05 12:14 | NUR ---
PT'S RETURNS CALL, STATES PT HAS A PROTECTION ORDER AGAINST HIM. PT IS UNAWARE OF THIS. IN ORDER TO PROVIDE FULL INFORMATION TO [employer] BUYING [employer]NSHIP HERE, I CALLED THE [facility] WHO VERIFIES THAT THERE HAS GISELLE A PROTECTION ORDER IN PLACE SINCE 05/30/17 BUT THAT THE FINANCIAL SERVICE PROFESSIONAL HASN;T BEEN ABLE TO FIND PT TO SERVE IT. I MADE AWARE THE PT WILL BE HERE AWHILE.
--- NOTE | 2017-06-05 12:18 | NUR ---
MESSAGE LEFT WITH PT'S 'S MACHINE THAT SINCE VERIFICATION OF PROTECTION PRDER, NO FURTHER ATTEMPTS WILL BE MADE TO GET PT HOME.
--- NOTE | 2017-06-05 12:32 | NUR ---
DISCHARGE DISCONTINUED. SOCIAL SERVICE CONSULT FOR HOMELESSNESS PENDING.
--- NOTE | 2017-06-05 13:47 | NUR ---
SHERRY TRIPATHI NOW CALLS, PT HAS BEEN ACCEPTED AT THE [facility]. HOSPITAL PAID CAB EN ROUTE FOR PT PICKUP/TRANSPORT.
--- NOTE | 2017-06-05 13:54 | NUR ---
PT NOW STATES HE DOESN'T WANT TO GO TO THE [facility]. HE STATES HE WILL HAVE THE CAB TAKE HIM TO HIS WIFES HOME SO THAT POLICE WILL ARREST HIM AND TAKE HIM TO HALF-WAY.
--- NOTE | 2017-06-05 14:25 | NUR ---
ABDIRASHID PT WAS DISCHARGED A FEW MINUTES AGO, HE LEFT HERE STATING "I'LL BE RIGHT BACK". WALKING TO TAXI, PT FELL TO THE GROUND CAUSING SUPERFICIAL ABRASIONS TO MOUTH. WILL RE-EVALUATE HIM NOW. DR AND CREDIT AND COLLECTIONS REPRESENTATIVE AWARE OF FALL.
--- NOTE | 2017-06-05 14:30 | NUR ---
THIS PT WAS WALKING OUT WITH A CANE LEAVING FOR DISCHARGE. I WAS WORKING THE TRIAGE NURSE. I HEARD A LOUD THUMP NOISE AND IT WAS THIS PT YELLING OUT. HE STATES HE GOT HIS CANE CAUGHT ON THE RUG IN THE CORRIDOR (IN FRONT OF ER SECURITY) WHILE EXITING THE ER. I ASSISTED THIS PT INTO A WHEELCHAIR AND HE C/O BILATERAL KNEE PAIN FROM THE FALL AND HE CUT HIS BOTTOM LIP AND IT WAS ACTIVELY BLEEDING. A TISSUE TO HOLD TO HIS LIP WAS PROVIDED TO HIM FROM A PERSON PASSING BY. PT ASKED TO BE SIGNED BACK INTO THE ER TO BE SEEN AGAIN,STATING "I DIDN'T DO THIS ON PURPOSE". PT TAKEN INTO ER TO HIS PREVIOUS NURSE DANILO VO WHERE A V-INCIDENT REPORT WILL BE DONE AND THE MD WILL CHECK PT.---JUAQUIN DANIELLE RN
--- NOTE | 2017-06-05 14:31 | NUR ---
SMALL ABRASION TO LOWER LIP AND 1CM SUPERFICIAL ABRASION TO RIGHT KNEE. NO ACTIVE BLEEDING. PT ALSO REPORTS LOW BACK PAIN AND DIFFICULTY BEARING WEIGHT ON RIGHHT LEG. NO DEFORMITY. NO OBJECTIVE SIGNS PAIN.
--- NOTE | 2017-06-05 15:05 | NUR ---
NURSE REPORT TO MARGOT.MARVIN FOR END OF SHIFT REPORT.
--- NOTE | 2017-06-05 15:51 | NUR ---
report RECEIVED FROM ISAAC COTA. DR EAGLE WAS IN TO SEE PT AND HAS ORDERED XRAYS REGARDING PT'S FALL--JUAQUIN DANIELLE RN
--- NOTE | 2017-06-05 16:11 | NUR ---
PT TO XRAY AT THIS TIME.--JUAQUIN DANIELLE RN
--- NOTE | 2017-06-05 16:59 | NUR ---
STERILE SALINE CLEANSING TO RT KNEE DIME SIZED ABRASION. SMALL NON ADHERENT DRESSING APPLIED TO KNEE--JUAQUIN DANIELLE RN
[2017-06-05 17:01] VITALS: BP 121/77
--- NOTE | 2017-06-05 17:10 | NUR ---
ALSO NOTE PT HAS A DIME SIZED BLACKENED AREA TO RT GREAT TOE.STATES HE HAS HAD IT FOR AWHILE AND CALLS IT A "BLISTER" HE GOT FROM [facility]ALKING [facility]. I CLEANED IT WITH STERILE SALINE AND APPLIED 2X2 GAUZE AND PAPER TAPE OVER TOP--JUAQUIN DANIELLE RN
--- NOTE | 2017-06-05 17:40 | NUR ---
I ASKED PT IF I COULD ASSIST HIM TO AMBULATE AND HE SAID "THERE IS NO WAY, I CAN'T WALK, I CAN'T PUT ANY WEIGHT ON MY FEET". HE HAS TWO CANES HE USES AND HE WILL NOT STAND,STATES "I CAN'T", DR EAGLE MADE AWARE. PT IN BED WITH ONE RAIL UP,HE REFUSES FOR OTHER SIDE RAIL TO BE UP--JUAQUIN DANIELLE RN
--- NOTE | 2017-06-05 17:41 | NUR ---
PT REFUSING FOR FOOD TRAY TO BE ORDERED.STATES HE DOESN'T WANT ONE--JUAQUIN DANIELLE RN
[2017-06-05 17:45] VITALS: BP 122/64
--- NOTE | 2017-06-05 18:29 | NUR ---
ATTEMPTED CRUTCH USE WITH PT PER DR EAGLE ORDER.PT GOT UP AND TOOK A STEP AND SAID "THERE IS JUST NO WAY,I CAN'T SWING MY LEG" THEN HE FELL BACK ONTO THE BED. DR EAGLE MADE AWARE.PT BEING ADMITTED FOR INABILITY TO AMBULATE.HE IS HAPPY BECAUSE HE WANTED TO BE ADMITTED. HEP LOCK INSERTED AT THIS TIME.--JUAQUIN DANIELLE RN
[2017-06-05 20:00] VITALS: BP 127/76
--- NOTE | 2017-06-05 20:00 | NUR ---
Time: 1999 A 57 year old M admitted to 4E under services of MARYANN STAFFORD DO, Pt. arrived via wheel chair from ER. Chief complaint: FALL. KEVIN PARRY A
--- NOTE | 2017-06-05 23:16 | NUR ---
PRN NORCO GIVEN PER PT. REQUEST FOR PAIN RATING PAIN A 6:10.
--- NOTE | 2017-06-05 23:30 | NUR ---
MED REC. UPDATED PER LIST FROM PT. COPY IN CHART.
[2017-06-06] VITALS: BP 115/70
--- NOTE | 2017-06-06 00:18 | NUR ---
ATTEPMTED TO CONTACT RESIDENTS HOME HEALTH LVN PERTAINING TO PT. SUICIDE RISK ASSESSMENT SCORE OF 21 AND 4 WOUNDS FOUND ON PT. FOR ORDERS. NO ANSWER WILL RETRY.
--- NOTE | 2017-06-06 00:22 | NUR ---
DR. GOMES CONTACTED AT THIS TIME REGARDING PT. SUICIDE RISK ASSESSMENT SCORE AND WOUNDS. DR. GOMES STATED THAT SHRERY TRIPATHI DID NOT NEED TO BE RE CONSULTED SINCE SHE SAW PT. IN ER, NO NEW ORDERS FOR WOUNDS
--- NOTE | 2017-06-06 01:50 | NUR ---
DR. SAMUELS CONTACTED AND NOTIFIED THAT MED REC. WAS UP TO DATE AND PT. INQUIRING ABOUT REQUIP. DR. SAMUELS STATED THAT IT IS OK TO GIVE REQUIP.
--- NOTE | 2017-06-06 06:51 | NUR ---
Shift chart check completed.
[2017-06-06 07:01] LABS: BASO % 0.4 % (0.0-1.0); EOS # 0.2 10*3/uL (0.0-0.4); EOS % 2.9 % (1.0-4.0); HEMATOCRIT 41.3 % (42.0-52.0); LYMPH # 2.2 10*3/uL (1.3-4.4); MEAN CELL VOLUME 91.4 fl (80.0-94.0); MEAN CORPUSCULAR HGB CONC 33.9 g/dl (33.0-37.0); MEAN PLATELET VOLUME 10.1 fl (9.6-12.3); MONO # 0.8 10*3/uL (0.1-1.0); MONO % 10.9 % (3.0-9.0); NEUT # 4.4 10*3/uL (2.3-7.9); NEUT % 57.5 % (47.0-73.0); PLATELET COUNT AUTOMATED 200 10*3/uL (130-400); RED BLOOD COUNT 4.52 10*6/uL (4.50-5.90); RED CELL DISTRI WIDTH 12.6 % (0-14.5); WHITE BLOOD COUNT 7.7 10*3/uL (4.8-10.8)
[2017-06-06 07:08] LABS: CHLORIDE 106 mmol/L (98-107); CREATININE 0.53 mg/dL (0.70-1.30); POTASSIUM 3.8 mmol/L (3.5-5.1); SODIUM 140 mmol/L (136-145)
[2017-06-06 07:18] LABS: BUN 16 mg/dl (7-24)
[2017-06-06 07:25] LABS: ACT PARTIAL THROMBO TIME 21.6 SECONDS (20.8-31.5)
[2017-06-06 08:00] VITALS: BP 138/74
--- NOTE | 2017-06-06 08:46 | NUR ---
MED REC REVIEWED AGAINST MED LIST GIVEN & MED CLAIM HISTORY - PER PT HE HAS BEEN TAKING THE REQUIP UP UNTIL LAST SUNDAY HOWEVER THE LAST TIME IT WAS FILLED WAS IN FEBRUARY FOR A 5 DAY SUPPLY. HE CLAIMS HIS HAS BEEN FILLING IT WHILE HE WAS IN SKILLED NURSING SO HE HAD PILLS BUT NO REFILLS PER PHARMACY. THIS MED WAS NOT LISTED REVIEWED BY THIS NURSE NOT SURE IF PATIENT HAS HAD IT DESPITE CLAIMS HE HAS HAS BEEN.
--- NOTE | 2017-06-06 09:12 | NUR ---
HOME MEDIOCATIONS STARTED PER ORDERS INCLUDING ROUTINE ATIVAN. PT CO-OPERATIVE WITH CARE & DENIES WANTING TO HURT HIMSELF OR OTHERS & DENIES HEARING VOICES/OTHER HALLUCINATIONS
--- NOTE | 2017-06-06 10:48 | NUR ---
assistant media planner in to discuss patient discharge plans. patient stated he will most likely be discharged to the [facility] police department as he has active charges at this time. Patient asked about going to skilled care for rehab as he fell in the emergency department and feels like he can't put weight on his leg. It was explained to him that the physical therapist would be coming in to complete an assessment, but with active charges pending, it is very doubtful any skilled facility would accept him for rehab at this time. It was also explained that we would be willing to contact the local facilities and fax the information. I personally called the [facility] police department and inquired if this patient does indeed have active charges pending, and they did confirm they would like a phone call when the patient is discharged so they can pick him up.
--- NOTE | 2017-06-06 10:54 | NUR ---
This social work manager and service planner, Maya, met with Ari. Explained that he is not a candidate for rehab placement or snf at this time. Will await PT and OT evaluation. He was recently arrested and has a warrant out for his arrest. He requested that nursing contact the probation dept of [place] [employer] and inform his immigration officer that he is in the hospital and the plan of care. Nurse, Stephanie, also in the room, explained that social service will follow up on informing his founder and chief executive officer. mop worker contacted [place] Probation [employer]-[phone], spoke with Rowan. She is aware that Ari is in the hospital. He was due in court today. She requested admission information be faxed-since Ari already requested that we notify and fax information to the dept-this social work manager faxed pertinent information. Will continue to follow as needed.
--- NOTE | 2017-06-06 11:10 | NUR ---
PHYSICAL THERAPY PAtient evaluated on 4, full evaluation to follow. Continue with PT as per plan of care with fall, right knee pain and decreased self safety concerns precautions with recent fall leaving ER in police custody precauation. PAtient has decreased safety with crutches-adamantly refuses wh walker. Decreased safety noted with crutches, able to ambulate 40 feet x 2, crutches, WBAT with contact gaurd to supervison. Continue with daily BID crutch training until (I) then d/c PT. PAtient is independant transfers supine/stand/supine. PAtient is moderate complexity via chart review, tests and evaluation: 00527. Thank you for this referral. Dorothy Eubanks,PT
--- NOTE | 2017-06-06 11:54 | NUR ---
Occupational Therapy evaluation completed this date on 4 with full eval to follow. Precautions include fall risk d/t BLE edema, unsafe crutch use and resistance to ww use, low complexity level 89423, IV LUE. Recommend OT per POC with d/c to [facility] anticipated upon d/c. Thank you for this referral. Olimpia Colon OTR/L
[2017-06-06 12:00] VITALS: BP 112/74
--- NOTE | 2017-06-06 12:19 | NUR ---
PHYSICAL THERAPY Ari seen this PM 1:1 for his physical therapy session, Pt was supine in bed and said no therapy this afternoon that he was going to stay in bed, tomorrow if i am here. CAS REYES JEWELRY ENGRAVER.
--- NOTE | 2017-06-06 13:24 | NUR ---
AFTER SS WENT INTO TELL THE PATIENT THAT HE WILLNOT BE ABLE TO GO TO A [facility]P WITH THE PENDING CHARGES THE PATIENT BEGAN TELLING THE SOCOAL WORKERS ANANT & YULY & ANOTHER NURSE JAROD THAT HE WILL JUST KILL HIMSELF. SAID THAT HE IS WORTHLESS AND THAT HE IS NOT GOING BACK TO [facility]ENT[facility],. DR Rob EAGEL CALLED AND REQUESTED THAT HE SPEAK WITH DR ESTEVEZ AND THAT SOMEONE COMES AND EVALUATES HIM.
--- NOTE | 2017-06-06 13:35 | NUR ---
DR TAYLOR HERE TO SEE THE PATIENT - DRESSING REMOVED & REAPPLIED. PATIENT TOLD DR TAYLOR AND THIS NURSE THAT HE IS ALREADY. SAID THAT HE WAS GOING TO KILL HIMSELF BY NOT EATING. SAID HE WAS GOING TO HALF-WAY AND NOTHING WAS GOING TO STOP THAT AND THEN HE WOULD BE ON THE STREETS. RELUCTANTLY AGREED TO ALLOW DR CARPENTER TO CONSULT.
--- NOTE | 2017-06-06 13:35 | NUR ---
Patient requesting an update on his situation. This long term care social worker and case planner met with patient. Informed him that information was given to his landing signal officer regarding his stay like he had requested. Also informed him that [place] Police [employer] is requesting to be contacted when patient is discharged. Patient was aware-stated that he has been in intermediate two other times. He stated that most likely he will be in intermediate for 7 months. Patient made statements that he did not want to live anymore-that he has nothing to live for-that "i Just want to " Appeared to become more agitated. tool and production planner, Maya, left room to get patient's nurse. Patient repeated the statements several times in front of this long term care social worker and RNLaurita. He appeared to become more upset and angry. He stated that "nothing you can say will make him feel any better." Requested that long term care social worker and nurse leave the room, BEATA Brown, on the floor, contacted patient's physician to informed him of patient's statements.
--- NOTE | 2017-06-06 13:37 | NUR ---
senior program planner and SW Ana Crowley went into patients room to discuss discharge options again. Stated to patient according to therapy assessments he is independent but would need crutch therapy bid in order to learn how to walk with crutches. At this time, he would not qualify for residential and with his background and recent activities involving the police department and nursing facility would not be able to accept him due to the risk of their other residents. Patient asked if he would be going to [facility] when he is discharged, as he asked us earlier to call the probation department on his behalf and fax paperwork proving he was here. They stated the hospital needs to call [facility] police department upon discharge as they will be picking him up and placing him into their custody. Patient became upset and began saying he was worthless and was just going to kill himself like he should have a long time ago. Stated he is worthless and with all of the stupid things he has done recently he deserves to . SW stayed in room as i went out and alerted Adina RN, Laurita RN and Stephanie RN of the situation. Alanis went in patients room to assess the situation, Stephanie COAT called resident for Dr. Tony and asked for Doctors to please come up and evaluate situation. Upon return to the office, Laurita Yañez called and ask that we make official referrals to the local nursing facilities. [facility] stated they do not accept patients insurance. Faxed clinicals to [facility] and the [facility]. Will continue to follow.
--- NOTE | 2017-06-06 13:40 | NUR ---
DR CARPENTER CALLED ABOUT CONSULT. MESSAGE LEFT ON PHONE
--- NOTE | 2017-06-06 13:42 | NUR ---
OLLIE GONZALEZ [id number] Please refer to the physician's history and physical for past medical history, comorbid conditions, and allergies. Diagnosis: DEPRESSION,UNABLE TO AMBULATE,CONTUSION OF RT KNEE Claudio Score: 19,LOW OR NO RISK WOUND DESCRIPTIONS: Location of the wound: left lower lip Type of wound: mucosal injury Thickness: Partial Size: 1.0cm x 1.0cm x 0.1cm Tunneling: none Undermining: none Sinus Tract: none Presence of Exudate: serosanguineous Amount: Light Color: Red Odor: None Periwound Skin Appearance: Normal Wound edges: approximated Pain (associated with wound): none at time of assessment How does patient state this happened? pt stated he fell on the rug when leaving the er last evening. Location of the wound: right great toe Type of wound: unstageable Thickness: Full Size: 0.4cm x 0.2cm x 0.3cm Tunneling: none Undermining: none Sinus Tract: none Presence of Exudate: Purulent Amount: Light Color: Red, brown Odor: None Periwound Skin Appearance: Firmness Wound edges: approximated Pain (associated with wound): none at time of assessment How does patient state this happened? pt stated he has had this area for a while and it was from walking on hardwood floors. Location of the wound: right knee Type of wound: skin tear Thickness: Partial Size: 0.6cm x 1.5cm x 0.1cm Tunneling: none Undermining: none Sinus Tract: none Presence of Exudate: serosanguineous Amount: Light Color: Red Odor: None Periwound Skin Appearance: Normal Wound edges: approximated Pain (associated with wound): none at time of assessment How does patient state this happened? pt stated this occured when he fell on the rug leaving the er last night R4th toenail is missing and left 3rd toenail is missing. No drainage noted for either site. No odor noted for either site. Surface the patient is resting on: Isoflex SKIN PREVENTION RECOMMENDATION: 1. Pressure redistribution support surface as appropriate 2. Elevate heels 3. Remove boots/TEDS every shift and reapply 4. Head of bed 30 degrees as tolerated 5. Assess nutrition and hydration 6. Manage moisture 7. Avoid the use of containment devices while in bed 8. Use absorptive products on surfaces limit layers of linens on bed 9. Turn and reposition every 1-2 hours in bed and every 1 hour in chair as tolerated 10. Weight shifts every 15 minutes while up in chair 11. Offloading with pillows or device to keep heels elevated off bed 12. Monitor skin at least every shift 13. Inspect under medical devices twice a day WOUND TREATMENT RECOMMENDATIONS: Patient follows with Dr. Jenkins I would recommend consulting Dr. Mireles to see the patient for the right great toe area. Cleanse right knee with nss and apply antibiotic ointment daily.
--- NOTE | 2017-06-06 13:46 | NUR ---
DR CUTLER NOTIFIED OF CONSULT
--- NOTE | 2017-06-06 14:02 | NUR ---
project planner called the [facility] in [facility], talked with Mario at the Male division. He asked if patient had a valid ID and if patient had any active charges at this time. I did explain the patient had recently had an incident but I couldn't be sure if he has "active warrants". Mario stated "he must take care of this incident first, then once this is cleared up he can call and speak with him". "He must call me and have at least a phone conversation as there are other questions that needs to be addressed". JAKE Crowley also called the [facility] in [place], facility is full at this time and has no vacancies.
--- NOTE | 2017-06-06 14:41 | NUR ---
ROUTINE ATIVAN & NEURONTIN GIVEN FOR ANXIETY./
--- NOTE | 2017-06-06 15:17 | NUR ---
DR CARPENTER CALLED IN - WILL SEE HIM IN THE AM - DR CUTLER HERE - RT TOE EXAMINED AND AFTER DISCUSSION WITH APTIENT THEY DECIDED ON BEDSIDE DEBRIDEMENT
--- NOTE | 2017-06-06 15:30 | NUR ---
This manager social responsibility contacted [facility] in [place], [place]-adi stated if patient is seen by psychiatry and medications adjusted and no longer has suicidal ideations-he can be evaluated for admission.
--- NOTE | 2017-06-06 15:32 | NUR ---
[facility] stated they are unable to meet this patients needs at this time
[2017-06-06 16:00] VITALS: BP 123/70
--- NOTE | 2017-06-06 16:49 | NUR ---
IN TO SEE PT AND PERFORM BEDISED DEBRIDEMENT. PT REFUSED PRE AND POST OP PICTURES. DRESSING CHANGED PER ORDER PT TOLERATED WELL.
--- NOTE | 2017-06-06 19:05 | NUR ---
PT. ASLEEP UPON ENTERING ROOM. ALERT AND ORIENTED UPON AWAKENING. LUNG SOUNDS DIMINISHED AND CLEAR, PT. ON ROOM AIR. S1S2 HEART SOUNDS, PPP, +1 NON-PITTING EDEMA TO BLE. BOWEL SOUNDS NORMOACTIVE X 4 QUADS. ECCHYMOSIS TO BLE. CALL LIGHT WITHIN REACH, BEDSIDE IN LOWEST POSITION, WHEELS LOCKED.
[2017-06-06 20:00] VITALS: BP 138/65
[2017-06-07] VITALS: BP 97/43
--- NOTE | 2017-06-07 00:30 | NUR ---
PATIENT YELLING AT PA FOR TAKING HIS VITALS. STATES NOT TO WAKE HIM UP AGAIN
--- NOTE | 2017-06-07 01:26 | NUR ---
RESTING IN BED WITH NO S/S OF DISTRESS
--- NOTE | 2017-06-07 05:25 | NUR ---
24 HR chart check completed.
[2017-06-07 05:47] LABS: BASO % 0.4 % (0.0-1.0); EOS # 0.2 10*3/uL (0.0-0.4); EOS % 2.5 % (1.0-4.0); HEMATOCRIT 41.8 % (42.0-52.0); HEMOGLOBIN 14.2 g/dl (14.0-18.0); LYMPH # 2.5 10*3/uL (1.3-4.4); LYMPH % 30.5 % (27.0-41.0); MEAN CELL VOLUME 91.9 fl (80.0-94.0); MEAN CORPUSCULAR HGB 31.2 pg (27.0-31.0); MEAN PLATELET VOLUME 10.1 fl (9.6-12.3); MONO # 0.8 10*3/uL (0.1-1.0); MONO % 9.8 % (3.0-9.0); NEUT # 4.6 10*3/uL (2.3-7.9); NEUT % 56.3 % (47.0-73.0); PLATELET COUNT AUTOMATED 192 10*3/uL (130-400); RED BLOOD COUNT 4.55 10*6/uL (4.50-5.90); RED CELL DISTRI WIDTH 12.7 % (0-14.5); WHITE BLOOD COUNT 8.2 10*3/uL (4.8-10.8)
[2017-06-07 05:54] LABS: BUN 16 mg/dl (7-24); CHLORIDE 105 mmol/L (98-107); CREATININE 0.68 mg/dL (0.70-1.30); POTASSIUM 3.9 mmol/L (3.5-5.1); SODIUM 137 mmol/L (136-145)
[2017-06-07 08:00] VITALS: BP 132/64
--- NOTE | 2017-06-07 11:30 | NUR ---
Patient is discharged, called [facility] Police department to notify of discharge. Police stated they will be here in 5 minutes to take patient into custody.
--- NOTE | 2017-06-07 11:48 | NUR ---
Police are no longer placing patient in custody apparently he has a court date arranged. Social service requested to make arrangements for patient to be admitted to the [facility]-[phone]. Message left on coordinator, Alyssa Huerta's voice mail.
--- NOTE | 2017-06-07 12:14 | NUR ---
[facility] police decided this patient did not need to be in custody at this time. Contacted Ai Byers who was able to get an immediate bed available for him at the [facility] in [facility]. Contacted [facility] cab who will transport patient at 12:15 pm.
--- NOTE | 2017-06-07 12:15 | NUR ---
PATIENT DISCHARGED TO [facility] VIA CAB. ALL PERSONAL BELONGINGS SENT WITH PATIENT. IV DISCONTINUED. DISCHARGE INSTRUCTIONS GIVEN AND REVIEWED WITH PATIENT.
--- NOTE | 2017-06-07 14:01 | NUR ---
PHYSICAL THERAPY CO-SIGN I approve of the Phyical Therapy notes written above. DARLENE TRIPP PT
== END 2017-06-07 12:15 | disposition home or self-care (01) | DRG 570 ==
LOC: ED 01:43 → EDHOLD 18:30 → 4E 18:30
PROVIDERS: Emergency Medicine; Emergency Medicine Emergency Medical Services; Internal Medicine; Internal Medicine Nephrology; ADMIT Internal Medicine
PROC: 0JBQ0ZZ Excision of Right Foot Subcutaneous Tissue and Fascia, Open Approach (ICD-10-PCS; principal; 2017-06-06)
DX: S80.01XA Contusion of right knee, initial encounter (principal); E43 Unspecified severe protein-calorie malnutrition; E11.621 Type 2 diabetes mellitus with foot ulcer; E11.42 Type 2 diabetes mellitus with diabetic polyneuropathy; I48.0 Paroxysmal atrial fibrillation; Z68.41 Body mass index [BMI] 40.0-44.9, adult; E44.0 Moderate protein-calorie malnutrition; F31.30 Bipolar disorder, current episode depressed, mild or moderate severity, unspecified; L97.519 Non-pressure chronic ulcer of other part of right foot with unspecified severity; M19.90 Unspecified osteoarthritis, unspecified site; I89.0 Lymphedema, not elsewhere classified; I10 Essential (primary) hypertension; E66.01 Morbid (severe) obesity due to excess calories; G25.81 Restless legs syndrome; E78.5 Hyperlipidemia, unspecified; F43.21 Adjustment disorder with depressed mood; F25.0 Schizoaffective disorder, bipolar type; W18.39XA Other fall on same level, initial encounter; F60.3 Borderline personality disorder; Z88.0 Allergy status to penicillin; Z91.018 Allergy to other foods; Z88.8 Allergy status to other drugs, medicaments and biological substances; Z90.49 Acquired absence of other specified parts of digestive tract; Z79.899 Other long term (current) drug therapy; Z79.84 Long term (current) use of oral hypoglycemic drugs; Z89.421 Acquired absence of other right toe(s); Z86.718 Personal history of other venous thrombosis and embolism; Y93.89 Activity, other specified; Y92.89 Other specified places as the place of occurrence of the external cause; Y99.8 Other external cause status

== ENCOUNTER 2018-10-17 14:26 | Inpatient (IN) | payer MEDICARE, OTHER ==
[~2018-10-17] VITALS: Ht 177.8 cm; Wt 151.1 kg
--- NOTE | ~2018-10-17 | EKG ---
[place], [place] ELECTROCARDIOGRAM REPORT NAME: OLLIE GONZALEZ UNIT #: [id number] ROOM: 410 DOCTOR: ROHIT DRAFT REPORT BIRTHDATE: [birth year] [facility] Test Date: 2018-10-17 Test Time: 20:59:39 Pat Name: OLLIE GONZALEZ Department: Room: 410 Gender: M Loin Trimmer: EKG.NM : 1960 Requested By: GAVINO TAYLOR Order Number: [id number] Reading MD: Amanuel Powers MD Measurements Intervals [place] Rate: 98 P: 49 CT: 193 QRS: 32 QRSD: 96 T: 64 QT: 354 QTc: 453 Interpretive Statements Sinus tachycardia Ventricular trigeminy Compared to ECG 10/17/2018 15:01:56 No significant change Electronically Signed On 10-18-2018 16:26:46 PST by Amanuel Powers MD CM:EKGRPT:ELECTROCARDIOGRAM REPORT 56 1626 GAVINO BURNETT DRAFT REPORT GAVINO TAYLOR DO
--- NOTE | ~2018-10-17 | PR ---
[place], [place] PROGRESS NOTE NAME: OLLIE GONZALEZ UNIT #: [id number] ROOM: 410 DOCTOR: GARIMA GREEN MD,TIMMY BIRTHDATE: [birth year] DOS: 10/21/2018 PULMONARY PROGRESS NOTE SUBJECTIVE: The patient has been noted cough, which has been noted nonproductive and reported increase in the amount and severity. He has not been noted symptoms of fever or chills. Continuing on antibiotic for cellulitis of lower extremities. The extremities edema and the cellulitis remain unchanged from yesterday's examination. The patient denies symptoms of headache or diplopia. General weakness and fatigue were noted. Denies symptoms of nausea, vomiting, diarrhea, abdominal pain, hematemesis, melena, or hematuria. OBJECTIVE: VITAL SIGNS: Normal temperature, respiratory rate 17, heart rate 64, blood pressure 112/56. Pulse oxygen saturation on room air was 92% saturation. HEENT: Shows head was atraumatic, eyes nonicterus. NECK: Supple. CARDIOVASCULAR: S1 and S2 audible. LUNGS: The patient was noted with moderate decreased breath sounds and scattered wheezing. There were no crackles. ABDOMEN: Soft, nontender. EXTREMITIES: Chronic lymphedema with cellulitis of the left lower extremity. MUSCULOSKELETAL: No deformities. CENTRAL NERVOUS SYSTEM: Cranial nerves 2-12 intact. SKIN: Noted chronic changes previously of lower extremity without any acute abnormalities. The patient does have a wound of the left toe. LABORATORY DATA: BMP this morning was noted as normal. The hypercoagulability panel, which is noted limited, completed, noted all negative. Vancomycin trough level yesterday was noted 25.9. IMPRESSION: 1. The patient with bronchitis with wheezing related to that, possibility of bronchial asthma. 2. Cellulitis of lower extremity. 3. Edema and thrombosis of the lower extremity. 4. Acute bilateral pulmonary emboli. PLAN OF MANAGEMENT: Breathing treatment was ordered for this patient as DuoNeb q.i.d. Chest x-ray was ordered to reassess as well. Any addition of changes in the treatment necessary will be done after the available current new results. At this time, the patient would not require any steroids. [place], [place] PROGRESS NOTE NAME: OLLIE GONZALEZ UNIT #: [id number] ROOM: 410 DOCTOR: TIMMY ULRICH MD BIRTHDATE: [birth year] TIMMY PAINTING MD CM:PNTRANS [id number] TIMMY GREEN MD 10/21/18 2306 interface
--- NOTE | ~2018-10-17 | PR ---
[place], [place] PROGRESS NOTE NAME: OLLIE GONZALEZ UNIT #: [id number] ROOM: 410 DOCTOR: TIMMY ULRICH MD BIRTHDATE: [birth year] DOS: 10/19/2018 SUBJECTIVE: The patient remains on the telemetry floor. Denies symptoms of fever or chills. Denies symptoms of coughing, sputum expectoration, and abdominal pain. He has been still complaining of pain in left lower extremity, at the site of cellulitis. Chronic lymphedema was noted. OBJECTIVE: VITAL SIGNS: Normal temperature, respiratory rate 20, heart rate 81-93, blood pressure 132/68. The pulse oxygen saturation recorded as 96% saturation on room air. HEENT: Examination shows head was atraumatic. Eyes nonicterus. NECK: Supple. CARDIOVASCULAR: S1, S2 audible. LUNGS: The patient was noted without any wheezing or crackles at present time. The breath sounds were noted as normal air entry of the lungs bilaterally. ABDOMEN: Soft. EXTREMITIES: Chronic changes with lymphedema and cellulitis of lower extremity. The patient's left side seemed to be partially decreased. IMPRESSION: 1. The patient has been currently noted with acute cellulitis of the left lower extremity. 2. The patient with acute thromboembolism with pulmonary embolism was also noted bilaterally. The patient with deep venous thrombosis of the left lower extremity as well. PLAN OF MANAGEMENT: Continuation of the Eliquis. The patient has a loading dose as previously ordered. Continuation of bronchodilators and other treatments from the respiratory standpoint as needed. The patient has been getting 2 broad spectrum intravenous antibiotics. I will leave the decision to primary care team of the patient. Adjust antibiotics for cellulitis of the lower extremity management. No antibiotic needed for any pulmonary disease. ADDENDUM IMPRESSION: 1. The patient with bilateral acute pulmonary embolism as edema and thrombosis of the left lower extremity. 2. Cellulitis of lower extremity. 3. Chronic obesity. 4. Coughing as well. [place], [place] PROGRESS NOTE NAME: OLLIE GONZLAEZ UNIT #: [id number] ROOM: 410 DOCTOR: TIMMY ULRICH MD BIRTHDATE: [birth year] TIMMY PAINTING MD CM:PNTRANS [phone] TIMMY GREEN MD 11/04/18 0900 interface
--- NOTE | ~2018-10-17 | PR ---
[place], [place] PROGRESS NOTE NAME: OLLIE GONZALEZ UNIT #: [id number] ROOM: 410 DOCTOR: GARIMA GREEN MD,TIMMY BIRTHDATE: [birth year] DOS: 10/22/2018 SUBJECTIVE: The patient noted comfortable, reduction in cough is noted, but the resolution incomplete, cough has been reported mostly dry. There were no symptoms of chest pain or acute shortness of breath. OBJECTIVE: VITAL SIGNS: For the patient, which have been recorded shows a normal temperature, respiratory rate 18, heart rate 63, blood pressure 110/71. Pulse oxygen saturation on room air was 94% saturation. HEAD, EYES, EARS, NOSE, AND THROAT: No acute change. NECK: Supple. CARDIOVASCULAR SYSTEM: S1, S2 audible. LUNGS: Without any wheezing, crackles today. ABDOMEN: Soft, nontender. Bowel sounds present. EXTREMITIES: Chronic lymphedema. IMPRESSION: The patient with superimposed acute cellulitis of the left lower extremity and some open area of the left toe. IMPRESSION: 1. The patient with acute bilateral pulmonary embolism with the deep venous thrombosis of the left lower extremity. 2. Cellulitis, lower extremity. 3. Coughing, bronchitis. The patient had been responded to the use of the bronchodilators. PLAN OF TREATMENT: Continue bronchodilators and oxygen supplementation. The patient will be started on Eliquis 5 mg b.i.d. once he completes the loading dose for 7 days from 18th of this month. In the meantime, continue other therapy, plan of management. Usual care. TIMMY PAINTING MD CM:PNTRANS [id number] TIMMY GREEN MD 10/22/18 1342 interface
--- NOTE | ~2018-10-17 | CON ---
[place], [place] REPORT OF CONSULTATION NAME: OLLIE GONZALEZ UNIT #: [id number] ROOM: 410 DOCTOR: GIULIANA HACKETT DPM BIRTHDATE: [birth year] DOS: 10/19/2018 SUBJECTIVE: The patient is a 58-year-old male with chief complaint of swelling of both lower legs and ulceration to the first left toe. PAST MEDICAL AND SURGICAL HISTORY: Adjustment disorder with depressed mood, AFib, depressed bipolar disorder, diabetes type 2, obesity and diabetic ulceration of toe, history of alcohol abuse, history of incarceration, hyperlipidemia, hypertension, history of deep venous thrombosis, lumbago, lymphedema of both lower extremities, morbid obesity, neuropathy, osteoarthritis, restless leg syndrome, schizophrenic disorder bipolar type and severe protein-calorie malnutrition. PAST SURGICAL HISTORY: Amputation of toes, right foot; cholecystectomy and umbilical hernia repair, status post debridement. SOCIAL HISTORY: Denies illicit drug use. Denies tobacco use. Social alcohol. The patient was a heavy alcoholic until 1997. FAMILY HISTORY: Mother at age 82 of hemochromatosis. Father , cause unknown. ALLERGIES: PENICILLIN, CHOCOLATE FLAVOR and MINOCYCLINE. LOWER EXTREMITY EXAMINATION: Pedal pulses diminished due to edema/lymphedema of bilateral lower extremity and edema and venous stasis of bilateral lower extremity. Negative Homans sign. No signs of DVT. Decreased hair growth. Decreased epicritic sensations. There is an ulceration in distal plantar aspect of the first left toe, which is full thickness to subcutaneous tissue level. No signs of fluctuance. No signs of purulent drainage or foul odor. Fissuring of the localized skin noted. Radiographs 3 foot views of left foot revealed no osseous erosion. Arterial vascular exam, bilateral lower extremity revealed no occluded or significant stenosis noted. Diffuse arteriosclerotic disease. ASSESSMENT: 1. Diabetic ulceration, first left toe. 2. Edema, venous stasis bilateral. PLAN: Evaluation and management. Order Bactroban and gauze dressing daily. The patient will be seen for continued care and followup. [place], [place] REPORT OF CONSULTATION NAME: OLLIE GONZALEZ UNIT #: [id number] ROOM: 410 DOCTOR: GIULIANA HACKETT DPM BIRTHDATE: [birth year] GIULIANA HACKETT DPM CM:CONSTR:REPORT OF CONSULTATION 1038 10/20/18 0308 interface
--- NOTE | ~2018-10-17 | CON ---
[place], [place] REPORT OF CONSULTATION NAME: OLLIE GONZALEZ UNIT #: [id number] ROOM: 410 DOCTOR: GARIMA GREEN MDTIMMY BIRTHDATE: [birth year] DOS: 10/18/2018 PULMONARY CONSULTATION CONSULTATION REQUESTED BY: Hospitalist services. REASON FOR CONSULTATION: Assessment of current acute pulmonary embolism and deep venous thrombosis. HISTORY OF PRESENT ILLNESS: This is a 58-year-old white male patient with multiple medical problems including lymphedema of the lower extremity. The patient remains incarcerated for several months from 06/24 to 04/2018. He has noted with history of chronic DVT taking Xarelto previously. He ran out of the medication for several months. He has been seen by Cricket Herrera, certified nurse practitioner yesterday, but the patient stated that he was refused to have the medications given and asked to go to the hospital for further assessment of ongoing multiple medical illnesses. The patient admitted, symptoms of progressive increase of edema of the left lower extremity, which were noted redness of the skin as well. He denies any symptoms of pain. He denies symptoms of shortness of breath. The patient denies symptoms of coughing or chest pain. He denies symptoms of hemoptysis. The patient presented to the hospital Emergency, ultrasound of the lower extremity completed that shows evidence of acute DVT patient of the left lower extremity. The patient has been assessed later with a CTA of the chest patient that shows evidence of bilateral pulmonary emboli. He had been admitted to the Intensive Care Unit. This morning, the patient was seen sitting on the side of the bed. Denies any symptoms of coughing, sputum expectoration, chest pain, or hemoptysis. He has been started on unfractionated therapeutic heparin for this patient per protocol for the medical management of thromboembolism. REVIEW OF SYSTEMS: CONSTITUTIONAL: Fatigue and tiredness reported. Denies symptoms of fever or chills. EYES: Denies burning, redness, or tenderness. EARS, NOSE, THROAT SYMPTOMS: Denies sore throat, hoarseness, otalgia, postnasal drainage or epistaxis. CARDIOVASCULAR: Denies angina pain. Noted history of chronic lymphedema with worsening of the edema of the left lower extremity noted in the past few weeks. GASTROINTESTINAL: Dysphagia, nausea, vomiting, diarrhea, abdominal pain, hematemesis, melena, or hematochezia. GENITOURINARY: No dysuria, suprapubic pain, hematuria. MUSCULOSKELETAL: No acute joint pain, redness, or tenderness. SKIN: Noted with chronic venous stasis pigmentation dryness of lower extremity with the current redness in the left lower extremity as well as the development of small wound of the left greater toe as well. CENTRAL NERVOUS SYSTEM: No dizziness, headache, diplopia, syncopal episodes or tingling sensation of the extremities. Remaining review of systems was completed were noted all negative. PAST MEDICAL HISTORY: [place], [place] REPORT OF CONSULTATION NAME: OLLIE GONZALEZ UNIT #: [id number] ROOM: 410 DOCTOR: GARIMA GREEN MD,TIMMY BIRTHDATE: [birth year] 1. Permanent atrial fibrillation. 2. Bipolar disorder. 3. Type 2 diabetes mellitus. 4. Moderate obesity. 5. History of incarceration. 6. Hyperlipidemia. 7. Essential hypertension. 8. History of deep venous thrombosis, was reported previously to time as per the patient, but there was no diagnosis of pulmonary embolism in the past, on long-term anticoagulation until a few months ago. 9. History of lumbago. 10. Peripheral neuropathy. 11. Osteoarthritis. 12. Restless leg syndrome. 13. Bipolar disorder. 14. Nonadherence with medication recently. PAST SURGICAL HISTORY: 1. Amputation of the toe. 2. Cholecystectomy. 3. Umbilical hernia repair. 4. Debridement of the wound in the past. SOCIAL HISTORY: The patient stated he is , nonsmoker lifetime. Denies any illicit drug use. History of social alcohol was reported and used to drink heavy alcohol until 1997. The patient stated that he worked in the [employer] in [place] until he got disabled completely for any job 2006. FAMILY HISTORY: The patient's father with complications of hemochromatosis at the age of 8282 years old. Mother also . History was unknown by the patient. HOME MEDICATIONS: To be taken by the patient was lisinopril, lorazepam, metformin, Risperdal, Xarelto 20 mg daily, Requip, simvastatin, Flomax and Travatan eyedrops. DRUG ALLERGIES: Reported: 1. PENICILLINS. 2. MINOCYCLINE. PHYSICAL EXAMINATION: GENERAL: This is a 58-year-old white male, currently sitting on the side of the bed without any acute distress, on room air of oxygen. VITAL SIGNS: Height of 5 feet 10 inches, weight of 333 pounds, BMI 47, which is consistent with morbid obesity. The temperature was noted as normal since admission from yesterday afternoon, respiratory rate between 15-20, heart rate 111, previously noted currently 98, blood pressure 106/52-116/72. Pulse oxygen saturation was recorded as 93% at rest on room air. HEENT: Examination shows head was atraumatic. Eyes nonicterus. NECK: Supple. [place], [place] REPORT OF CONSULTATION NAME: OLLIE GONZALEZ UNIT #: [id number] ROOM: 410 DOCTOR: GARIMA GREEN MD,[facility] BIRTHDATE: [birth year] CARDIOVASCULAR: S1, S2 is audible. Decreased posterior pharyngeal space, high tongue base crowding of soft tissue structures. CARDIOVASCULAR: S1, S2 is audible. There were no added sounds. LUNGS: Decreased breath sounds in the lungs bilaterally. The wheezing or crackles. ABDOMEN: Soft with mild to moderate obesity. Bowel sounds present. EXTREMITIES: Noted with chronic changes, lymphedema of the patient with acute area of cellulitis noted at the left lower extremity and small wound of the patient of the left great toe as well. There were no other open areas grossly visible. CENTRAL NERVOUS SYSTEM: The patient's cranial nerves 2-12 intact. MUSCULOSKELETAL: Without acute deformities. LABORATORY DATA: INR yesterday on admission was normal. PTT on admission was noted normal. CBC yesterday on admission, hemoglobin 13.6, WBC count, and platelet count were normal. CMP of 07/26/2018, glucose 420, BUN and creatinine were normal. CO2 of 19. The chest x-ray 1 view does not show any acute abnormality for the patient. Troponin for the patient completed yesterday 3 sets were all normal. CBC of WBC count of 7.3, hemoglobin 13.3, platelet count normal at 4.4% eosinophils today. CMP is normal BUN and creatinine. Other electrolytes were normal. PTT was noted 97 at 1:22 a.m. and 58 this morning, at 9 o'clock which are all noted therapeutic range. Radiology data reviewed. Ultrasound of bilateral lower extremity, which was completed on 10/17/2017 showed nonocclusive deep venous thrombosis of the left mid superficial femoral vein as well as acute occlusive DVT with in the left distal superficial femoral vein of tibioperoneal trunk. The finding was noted new as completed with previous testing of 05/10/2018. CTA of the chest was completed shows saddle pulmonary emboli, which were noted in the area of the left upper lobe and lingular branches. The contrast timing was not noted at rest. In addition to that, it shows small pulmonary emboli for the patient in the other pulmonary arterial branches of the lungs. Question of mild right heart strain was raised. IMPRESSION: 1. The patient who has been currently noted without evidence of hypoxia. The patient presented to the hospital noted with acute deep venous thrombosis, several deep veins of the left lower extremity and acute pulmonary embolus, which were noted nonsaddle. The patient does not show any evidence of hemodynamic instability and normal troponins. 2. History of nonadherence with medication. The patient lack of medication needed with history of chronic management of the recurrent deep venous thrombosis for the past several months, resulting in a current acute deep venous thrombosis and thromboembolism. 3. The patient with morbid obesity. 4. Suspicion of obstructive sleep apnea disorder as well. 5. The patient with type 2 diabetes mellitus, noted uncontrolled as well. 6. The patient with non-anion gap metabolic acidosis with possibility of venous tubular acidosis. 7. History of diabetes mellitus should be considered. 8. Cellulitis with thrombophlebitis of the left lower extremity was also noted. 9. Chronic lymphedema history, which was still noted persistent. [place], [place] REPORT OF CONSULTATION NAME: OLLIE GONZALEZ UNIT #: [id number] ROOM: 410 DOCTOR: GARIMA GREEN MD,TIMMY BIRTHDATE: [birth year] 10. Morbid obesity as well. PLAN OF MANAGEMENT: At this time, the patient has been currently getting the therapeutic unfractionated heparin of the patient in the therapeutic range that will be continued. After 24-hour for the patient, the patient will be switched to the Eliquis high dose of 10 mg b.i.d. dosing for 7 days followed by 5 mg b.i.d. dosing for the current acute and long-term management of the thromboembolism and hypercoagulability. Hypercoagulable profile for patient could be done as an outpatient. The patient has been getting broad spectrum intravenous antibiotic at this time. If the infection is excluded, consider discontinuation of the antibiotics. The patient could be transferred to the telemetry floor, has been noted hemodynamically stable and continue other medical management. Other medical management as previously to be continued. There was no evidence of hypoxia, would not require any oxygen supplementation of therapy, plan of management. Usual care, the patient's other previous medications has been started including for the diabetes mellitus, optimize medical management and multiple other medical conditions. Thanks for allowing me to participate in the care of this patient. TIMMY PAINTING MD CM:CONSTR:REPORT OF CONSULTATION 1300 11/04/18 0859 interface
--- NOTE | ~2018-10-17 | PR ---
[place], [place] PROGRESS NOTE NAME: OLLIE GONZALEZ UNIT #: [id number] ROOM: 410 DOCTOR: TIMMY ULRICH MD BIRTHDATE: [birth year] DOS: 10/20/2018 PULMONARY PROGRESS NOTE SUBJECTIVE: The patient was noted comfortable at this time, sitting on the chair in his room, complaining of mild to moderate nonproductive cough. Denies symptoms of shortness of breath, chest pain, sputum expectoration or hemoptysis. The patient was continued on high dose of Eliquis loading for management of the thromboembolism. OBJECTIVE: VITAL SIGNS: Normal temperature, respiratory rate 20, heart rate of 85, blood pressure 101/48 at noon. Pulse oxygen saturation on room air 91% saturation at rest. HEENT: Head was atraumatic. Eyes nonicterus. Chronic obesity. CARDIOVASCULAR: S1, S2 audible. LUNGS: Free of any wheezing or crackles. ABDOMEN: Soft and obese. EXTREMITIES: Chronic changes with superimposed edema of the extremities with lymphedema as well. With improving cellulitis of the lower extremity. PLAN OF MANAGEMENT: No changes in the plan of care at this time. Continue the patient's current therapy, plan of management as in progress. Other therapy, plan of management, care plan and treatments. ADDENDUM IMPRESSION: 1. The patient with bilateral acute pulmonary embolism as edema and thrombosis of the left lower extremity. 2. Cellulitis of lower extremity. 3. Chronic obesity. 4. Coughing as well. [place], [place] PROGRESS NOTE NAME: OLLIE GONZALEZ UNIT #: [id number] ROOM: 410 DOCTOR: TIMMY ULRICH MD BIRTHDATE: [birth year] TIMMY PAINTING MD CM:PNTRANS [phone] TIMMY GREEN MD 10/23/18 1167 interface
--- NOTE | ~2018-10-17 | PR ---
[place], [place] PROGRESS NOTE NAME: OLLIE GONZALEZ UNIT #: [id number] ROOM: 410 DOCTOR: GARIMA GREEN MD,TIMMY BIRTHDATE: [birth year] DOS: 10/23/2018 PULMONARY PROGRESS NOTE SUBJECTIVE: The patient noted comfortable at this time without any acute distress. He has been sitting on the side of the bed this morning. Continued on anticoagulation as previously. Coughing has improved significantly. OBJECTIVE: VITAL SIGNS: Normal temperature, respiratory rate 18, heart rate 80, blood pressure 102/60, pulse oxygen saturation on room air 99% saturation. HEENT: Head was atraumatic, chronic obesity. NECK: Supple. CARDIOVASCULAR SYSTEM: S1, S2 audible. LUNGS: Clear of any wheezing or crackles. ABDOMEN: Soft, nontender. EXTREMITIES: No new changes. IMPRESSION: Acute bilateral pulmonary embolism, deep venous thrombosis of the left lower extremity, acute bronchitis and cough, resolving. PLAN OF THERAPY: No changes in the plan of care from pulmonary standpoint. Continue the patient's current therapy, plan of management. Discharge planning per primary care attending. The patient could be discharged whenever desired on the Eliquis and short-acting bronchodilators. TIMMY PAINTING MD CM:PNTRANS [phone] TIMMY GREEN MD 10/24/18 0008 interface
--- NOTE | ~2018-10-17 | PR ---
[place], [place] PROGRESS NOTE NAME: OLLIE GONZALEZ UNIT #: [id number] ROOM: 410 DOCTOR: OLLIE GENAO DPM BIRTHDATE: [birth year] DOS: 10/21/2018 SUBJECTIVE: The patient is seen today for followup of chronic ulceration of left first toe. He states he has some discomfort in his legs from the swelling. He does have a history of chronic lymphedema. He denies any pain, specifically to the left first toe. OBJECTIVE: EXTREMITIES: Significant chronic edema is seen bilaterally. Minimal erythema is seen in the lower legs. There is an open area of ulceration noted at the plantar distal portion of the left first toe that is clean and granular at this time. It is into subcutaneous tissue. No malodor. No purulent drainage. No significant edema or erythema about the toe. No signs of abscess or gross infection. ASSESSMENT: Chronic diabetic ulceration, left first toe; lymphedema bilaterally; recent deep vein thrombosis and pulmonary embolism. PLAN: Evaluation and management. Continue with daily wound care. Continue with offloading. Toe ulcer is not infected and stable at this time. Continue to follow while in the hospital. OLLIE GENAO DPM CM:VANESSA [id number] OLLIE GENAO DPM 10/22/18 0210 interface
--- NOTE | ~2018-10-17 | EKG ---
[place], [place] ELECTROCARDIOGRAM REPORT NAME: OLLIE GONZALEZ UNIT #: [id number] ROOM: [facility] DOCTOR: ROHIT DRAFT REPORT BIRTHDATE: [birth year] [facility] Test Date: 2018-10-17 Test Time: 15:01:56 Pat Name: OLLIE GONZALEZ Department: ER Room: [facility] Gender: M Transferrer: EKG.AK : 1960 Requested By: LARISA MILTON PA-C Order Number: [id number] Reading MD: Amanuel Powers MD Measurements Intervals [place] Rate: 92 P: 46 DC: 51 QRS: 31 QRSD: 98 T: 72 QT: 323 QTc: 400 Interpretive Statements Sinus tachycardia Ventricular trigeminy Short DC interval Probable left atrial enlargement RSR' in V1 or V2, probably normal variant Electronically Signed On 10-17-2018 17:35:09 PST by Amanuel Powers MD CM:EKGRPT:ELECTROCARDIOGRAM REPORT 1501 1735 LARISA MILTON PA-C EPIPHANY DRAFT REPORT LARISA MILTON PA-C
[~2018-10-17 14:26] MED LIST changes: +DEPAKOTE500 M1 PO; -REQUIP3 M1 PO; +REQUIP5 MG PO
[2018-10-17 15:04] VITALS: BP 103/46
[2018-10-17 15:19] LABS: BASO % 0.4 % (0.0-1.0); EOS # 0.1 10*3/uL (0.0-0.4); EOS % 1.3 % (1.0-4.0); HEMATOCRIT 40.6 % (42.0-52.0); HEMOGLOBIN 13.6 g/dl (14.0-18.0); LYMPH # 1.8 10*3/uL (1.3-4.4); LYMPH % 21.8 % (27.0-41.0); MEAN CELL VOLUME 90.2 fl (80.0-94.0); MEAN CORPUSCULAR HGB 30.2 pg (27.0-31.0); MEAN CORPUSCULAR HGB CONC 33.5 g/dl (33.0-37.0); MEAN PLATELET VOLUME 10.5 fl (9.6-12.3); MONO # 0.8 10*3/uL (0.1-1.0); MONO % 10.1 % (3.0-9.0); NEUT # 5.4 10*3/uL (2.3-7.9); NEUT % 65.7 % (47.0-73.0); PLATELET COUNT AUTOMATED 183 10*3/uL (130-400); RED CELL DISTRI WIDTH 12.4 % (0-14.5); WHITE BLOOD COUNT 8.3 10*3/uL (4.8-10.8)
[2018-10-17] MEDS ORDERED: LATANOPROST2.5 ML OP (15:31)
[2018-10-17] MEDS ORDERED: LISINOPRIL2.5 MG PO (15:32)
[2018-10-17 15:35] LABS: INTERNATIONAL NORM RATIO 0.9 (2.0-3.5)
[2018-10-17 15:38] LABS: ALBUMIN 2.7 gm/dl (3.1-4.5); ALKALINE PHOSPHATASE 98 U/L (45-117); BUN 18 mg/dl (7-24); CHLORIDE 102 mmol/L (98-107); CREATININE 1.22 mg/dL (0.70-1.30); POTASSIUM 4.3 mmol/L (3.5-5.1); SGOT/AST 11 IU/L (3-35); SGPT/ALT 16 U/L (12-78); SODIUM 137 mmol/L (136-145); TOTAL PROTEIN 6.5 gm/dL (6.4-8.2)
[2018-10-17 15:42] LABS: TROPONIN I < 0.015 ng/ml (<0.045)
[2018-10-17 15:46] LABS: VALPROIC ACID (DEPAKENE) 20.4 ug/ml (50-100)
[2018-10-17 16:05] VITALS: BP 103/31
[2018-10-17 18:54] VITALS: BP 116/72
[2018-10-17 19:14] VITALS: BP 88/64
[2018-10-17 19:28] VITALS: BP 122/70
[2018-10-17] MEDS ORDERED: TRAVATAN 0.0042.5 M1 INTRAOC (20:00)
[2018-10-17] MEDS ORDERED: FLOMAX0.4 MG PO (20:04)
[2018-10-17] MEDS ORDERED: GLIPIZIDE5 MG PO (22:50)
[2018-10-18] VITALS: BP 126/56
[2018-10-18 04:00] VITALS: BP 106/52
[2018-10-18 06:10] LABS: BASO # 0.1 10*3/uL (0.0-0.1); BASO % 0.7 % (0.0-1.0); EOS # 0.3 10*3/uL (0.0-0.4); EOS % 4.4 % (1.0-4.0); HEMATOCRIT 39.3 % (42.0-52.0); HEMOGLOBIN 13.3 g/dl (14.0-18.0); LYMPH # 2.3 10*3/uL (1.3-4.4); LYMPH % 30.8 % (27.0-41.0); MEAN CELL VOLUME 89.5 fl (80.0-94.0); MEAN CORPUSCULAR HGB 30.3 pg (27.0-31.0); MEAN CORPUSCULAR HGB CONC 33.8 g/dl (33.0-37.0); MEAN PLATELET VOLUME 10.3 fl (9.6-12.3); MONO # 0.7 10*3/uL (0.1-1.0); NEUT # 3.9 10*3/uL (2.3-7.9); NEUT % 53.6 % (47.0-73.0); PLATELET COUNT AUTOMATED 204 10*3/uL (130-400); RED BLOOD COUNT 4.39 10*6/uL (4.50-5.90); RED CELL DISTRI WIDTH 12.6 % (0-14.5); WHITE BLOOD COUNT 7.3 10*3/uL (4.8-10.8)
[2018-10-18 06:26] LABS: ALBUMIN 2.3 gm/dl (3.1-4.5); BUN 15 mg/dl (7-24); CHLORIDE 106 mmol/L (98-107); CHOLESTEROL 156 mg/dL (<200); CREATININE 0.57 mg/dL (0.70-1.30); POTASSIUM 3.7 mmol/L (3.5-5.1); SGOT/AST 12 IU/L (3-35); SGPT/ALT 14 U/L (12-78); SODIUM 139 mmol/L (136-145); TOTAL PROTEIN 5.8 gm/dL (6.4-8.2); TRIGLYCERIDES 104 mg/dl (<150); VLDL CHOLESTEROL 21 mg/dL (6-40)
[2018-10-18 06:33] LABS: ALKALINE PHOSPHATASE 85 U/L (45-117); FREE T4 1.26 ng/dl (0.76-1.46); HDL CHOLESTEROL 46 mg/dl (40-60); LDL CHOLESTEROL 89 mg/dL (9-159)
[2018-10-18 08:00] VITALS: BP 138/84
[2018-10-18 08:16] LABS: VITAMIN D, 25-HYDROXY 14.2 ng/mL (30-100)
[2018-10-18 12:00] VITALS: BP 132/80
[2018-10-18 16:00] VITALS: BP 111/86
[2018-10-18 20:00] VITALS: BP 104/73
[2018-10-19] VITALS: BP 123/68
[2018-10-19 08:00] VITALS: BP 132/68
[2018-10-19 12:00] VITALS: BP 97/55
[2018-10-19 14:10] LABS: ANTICARDIOLIPIN AB, IGG, QN <9 GPL U/mL (0-14); ANTICARDIOLIPIN AB, IGM, QN <9 MPL U/mL (0-12); CARDIOLIPIN AB IGA 161836 <9 APL U/mL (0-11)
[2018-10-19 16:00] VITALS: BP 121/53
[2018-10-19 20:00] VITALS: BP 107/55
[2018-10-20] VITALS: BP 105/33
[2018-10-20 06:23] LABS: BASO % 0.5 % (0.0-1.0); EOS # 0.3 10*3/uL (0.0-0.4); EOS % 4.5 % (1.0-4.0); HEMATOCRIT 40.8 % (42.0-52.0); HEMOGLOBIN 13.1 g/dl (14.0-18.0); LYMPH # 1.8 10*3/uL (1.3-4.4); LYMPH % 30.4 % (27.0-41.0); MEAN CELL VOLUME 91.1 fl (80.0-94.0); MEAN CORPUSCULAR HGB 29.2 pg (27.0-31.0); MEAN CORPUSCULAR HGB CONC 32.1 g/dl (33.0-37.0); MEAN PLATELET VOLUME 10.4 fl (9.6-12.3); MONO # 0.8 10*3/uL (0.1-1.0); MONO % 12.9 % (3.0-9.0); NEUT % 51.4 % (47.0-73.0); PLATELET COUNT AUTOMATED 199 10*3/uL (130-400); RED BLOOD COUNT 4.48 10*6/uL (4.50-5.90); RED CELL DISTRI WIDTH 12.6 % (0-14.5); WHITE BLOOD COUNT 5.8 10*3/uL (4.8-10.8)
[2018-10-20 06:31] LABS: BUN 16 mg/dl (7-24); CHLORIDE 107 mmol/L (98-107); CREATININE 0.53 mg/dL (0.70-1.30); POTASSIUM 4.2 mmol/L (3.5-5.1); SODIUM 139 mmol/L (136-145)
[2018-10-20 08:00] VITALS: BP 110/52
[2018-10-20 11:09] LABS: ANTI-THROMBIN III ACTIVITY 76 % (75-135); PROTEIN S, FREE 120 % (57-157); PROTEIN S, TOTAL 77 % (60-150)
[2018-10-20 12:00] VITALS: BP 101/48
[2018-10-20 16:00] VITALS: BP 108/54
[2018-10-20 20:00] VITALS: BP 103/58
[2018-10-21] VITALS: BP 98/51
[2018-10-21 06:03] LABS: BASO % 0.4 % (0.0-1.0); EOS # 0.3 10*3/uL (0.0-0.4); EOS % 3.3 % (1.0-4.0); HEMATOCRIT 40.4 % (42.0-52.0); HEMOGLOBIN 13.2 g/dl (14.0-18.0); LYMPH # 1.7 10*3/uL (1.3-4.4); LYMPH % 21.4 % (27.0-41.0); MEAN CELL VOLUME 91.8 fl (80.0-94.0); MEAN CORPUSCULAR HGB CONC 32.7 g/dl (33.0-37.0); MEAN PLATELET VOLUME 10.3 fl (9.6-12.3); MONO # 0.9 10*3/uL (0.1-1.0); MONO % 10.7 % (3.0-9.0); NEUT # 5.2 10*3/uL (2.3-7.9); PLATELET COUNT AUTOMATED 200 10*3/uL (130-400); RED CELL DISTRI WIDTH 12.4 % (0-14.5); WHITE BLOOD COUNT 8.1 10*3/uL (4.8-10.8)
[2018-10-21 06:22] LABS: BUN 18 mg/dl (7-24); CHLORIDE 106 mmol/L (98-107); CREATININE 0.61 mg/dL (0.70-1.30); POTASSIUM 4.1 mmol/L (3.5-5.1); SODIUM 138 mmol/L (136-145)
[2018-10-21 08:00] VITALS: BP 112/56
[2018-10-21 12:00] VITALS: BP 105/66
[2018-10-21 15:07] LABS: LUPUS DRVVT 46.2 sec (0.0-47.0); PTT-LA 41.3 sec (0.0-51.9)
[2018-10-21 16:00] VITALS: BP 96/52
[2018-10-21 16:09] LABS: LUPUS REFLEX INTERPRETATION Comment: (.)
[2018-10-21 20:00] VITALS: BP 110/59
[2018-10-22] VITALS: BP 110/71
[2018-10-22 09:32] LABS: BASO % 0.7 % (0.0-1.0); EOS # 0.2 10*3/uL (0.0-0.4); EOS % 3.4 % (1.0-4.0); HEMATOCRIT 41.6 % (42.0-52.0); HEMOGLOBIN 13.9 g/dl (14.0-18.0); LYMPH # 1.4 10*3/uL (1.3-4.4); LYMPH % 23.8 % (27.0-41.0); MEAN CELL VOLUME 91.2 fl (80.0-94.0); MEAN CORPUSCULAR HGB 30.5 pg (27.0-31.0); MEAN CORPUSCULAR HGB CONC 33.4 g/dl (33.0-37.0); MONO # 0.7 10*3/uL (0.1-1.0); MONO % 11.7 % (3.0-9.0); NEUT # 3.6 10*3/uL (2.3-7.9); NEUT % 60.1 % (47.0-73.0); PLATELET COUNT AUTOMATED 215 10*3/uL (130-400); RED BLOOD COUNT 4.56 10*6/uL (4.50-5.90); RED CELL DISTRI WIDTH 12.4 % (0-14.5); WHITE BLOOD COUNT 5.9 10*3/uL (4.8-10.8)
[2018-10-22 10:01] LABS: BUN 18 mg/dl (7-24); CHLORIDE 105 mmol/L (98-107); CREATININE 0.71 mg/dL (0.70-1.30); POTASSIUM 4.7 mmol/L (3.5-5.1); SODIUM 138 mmol/L (136-145)
[2018-10-22 16:00] VITALS: BP 94/56
[2018-10-22 20:00] VITALS: BP 98/53
[2018-10-23] VITALS: BP 104/54
[2018-10-23 06:20] LABS: BASO % 0.7 % (0.0-1.0); EOS # 0.3 10*3/uL (0.0-0.4); EOS % 4.6 % (1.0-4.0); HEMATOCRIT 41.7 % (42.0-52.0); HEMOGLOBIN 13.4 g/dl (14.0-18.0); LYMPH # 1.8 10*3/uL (1.3-4.4); LYMPH % 30.6 % (27.0-41.0); MEAN CELL VOLUME 91.6 fl (80.0-94.0); MEAN CORPUSCULAR HGB 29.5 pg (27.0-31.0); MEAN CORPUSCULAR HGB CONC 32.1 g/dl (33.0-37.0); MEAN PLATELET VOLUME 10.3 fl (9.6-12.3); MONO # 0.8 10*3/uL (0.1-1.0); MONO % 12.9 % (3.0-9.0); NEUT % 50.9 % (47.0-73.0); PLATELET COUNT AUTOMATED 231 10*3/uL (130-400); RED BLOOD COUNT 4.55 10*6/uL (4.50-5.90); RED CELL DISTRI WIDTH 12.4 % (0-14.5); WHITE BLOOD COUNT 5.9 10*3/uL (4.8-10.8)
[2018-10-23 06:47] LABS: BUN 19 mg/dl (7-24); CHLORIDE 105 mmol/L (98-107); CREATININE 0.64 mg/dL (0.70-1.30); POTASSIUM 4.6 mmol/L (3.5-5.1); SODIUM 137 mmol/L (136-145)
[2018-10-23 08:00] VITALS: BP 102/60
[2018-10-23 12:00] VITALS: BP 108/56
[2018-10-23] MEDS ORDERED: VITAMIN D32000 UNI1 PO (13:12)
[2018-10-23] MEDS ORDERED: HYDROCODONE-AC1 EAC1 PO (13:12)
[2018-10-23] MEDS ORDERED: XARE15TA PO (13:12)
== END 2018-10-23 15:51 | disposition home or self-care (01) | DRG 871 ==
LOC: ED 14:26 → EDHOLD 18:37 → ICCU 18:37 → 4E 18:37 → ICCU 19:06 → 4E 10-18 15:04
PROVIDERS: Internal Medicine; Internal Medicine Nephrology; Physician Assistant; ADMIT Internal Medicine
PROC: 0HBNXZZ Excision of Left Foot Skin, External Approach (ICD-10-PCS; principal; 2018-10-20)
DX: A41.9 Sepsis, unspecified organism (principal); E43 Unspecified severe protein-calorie malnutrition; I26.99 Other pulmonary embolism without acute cor pulmonale; I50.31 Acute diastolic (congestive) heart failure; F31.30 Bipolar disorder, current episode depressed, mild or moderate severity, unspecified; L03.116 Cellulitis of left lower limb; I82.412 Acute embolism and thrombosis of left femoral vein; I82.442 Acute embolism and thrombosis of left tibial vein; E87.2 Acidosis; D68.59 Other primary thrombophilia; Z68.42 Body mass index [BMI] 45.0-49.9, adult; R00.8 Other abnormalities of heart beat; D72.810 Lymphocytopenia; D64.9 Anemia, unspecified; E78.5 Hyperlipidemia, unspecified; G25.81 Restless legs syndrome; G47.33 Obstructive sleep apnea (adult) (pediatric); I87.8 Other specified disorders of veins; I48.2 Chronic atrial fibrillation; E11.42 Type 2 diabetes mellitus with diabetic polyneuropathy; M19.90 Unspecified osteoarthritis, unspecified site; I89.0 Lymphedema, not elsewhere classified; F43.21 Adjustment disorder with depressed mood; I48.0 Paroxysmal atrial fibrillation; F25.0 Schizoaffective disorder, bipolar type; E11.69 Type 2 diabetes mellitus with other specified complication; E11.621 Type 2 diabetes mellitus with foot ulcer; L97.529 Non-pressure chronic ulcer of other part of left foot with unspecified severity; E11.65 Type 2 diabetes mellitus with hyperglycemia; J20.9 Acute bronchitis, unspecified; E66.01 Morbid (severe) obesity due to excess calories; M54.5 Low back pain; G89.29 Other chronic pain; L72.0 Epidermal cyst; E83.42 Hypomagnesemia; I70.90 Unspecified atherosclerosis; I11.0 Hypertensive heart disease with heart failure; Z88.0 Allergy status to penicillin; Z88.1 Allergy status to other antibiotic agents; Z91.018 Allergy to other foods; Z89.429 Acquired absence of other toe(s), unspecified side; Z90.49 Acquired absence of other specified parts of digestive tract; Z84.89 Family history of other specified conditions; Z79.899 Other long term (current) drug therapy; Z79.84 Long term (current) use of oral hypoglycemic drugs

== ENCOUNTER 2019-06-07 21:59 | Emergency (ER) | payer OTHER ==
[~2019-06-07] VITALS: Ht 182.8 cm; Wt 157.9 kg
--- NOTE | ~2019-06-07 | EKG ---
[place], [place] ELECTROCARDIOGRAM REPORT NAME: OLLIE GONZALEZ UNIT #: [id number] ROOM: DOCTOR: EPIPHANY DRAFT REPORT BIRTHDATE: [birth year] [facility] Test Date: 2019-06-07 Test Time: 22:20:14 Pat Name: OLLIE GONZALEZ Department: Room: Gender: Medical Office Technologist: : 1960 Requested By: ARMEN PADGETT Order Number: [id number] Reading MD: Rolando Vallecillo MD Measurements Intervals [place] Rate: 93 P: MT: QRS: -29 QRSD: 96 T: 59 QT: 352 QTc: 438 Interpretive Statements Atrial fibrillation with occasional PVCs Possible inferior infarct, old Electronically Signed On 06-09-2019 8:58:41 PDT by Rolando Vallecillo MD CM:EKGRPT:ELECTROCARDIOGRAM REPORT 2220 0858 ARMEN PADGETT MD EPIPHANY DRAFT REPORT ARMEN PADGETT MD
[~2019-06-07 21:59] MED LIST changes: +FLOMAX0.4 MG PO; +HYDROCODONE-AC1 EAC1 PO; +LATANOPROST2.5 ML OP; +TRAVATAN 0.0042.5 M1 INTRAOC; +VITAMIN D32000 UNI1 PO
[2019-06-07 22:31] LABS: BASO % 0.3 % (0.0-1.0); EOS % 0.1 % (1.0-4.0); HEMATOCRIT 42.8 % (42.0-52.0); LYMPH # 1.3 10*3/uL (1.3-4.4); MEAN CELL VOLUME 90.9 fl (80.0-94.0); MEAN CORPUSCULAR HGB 29.7 pg (27.0-31.0); MEAN CORPUSCULAR HGB CONC 32.7 g/dl (33.0-37.0); MEAN PLATELET VOLUME 10.2 fl (9.6-12.3); MONO % 6.2 % (3.0-9.0); NEUT # 13.3 10*3/uL (2.3-7.9); NEUT % 84.9 % (47.0-73.0); PLATELET COUNT AUTOMATED 232 10*3/uL (130-400); RED BLOOD COUNT 4.71 10*6/uL (4.50-5.90); RED CELL DISTRI WIDTH 13.2 % (0-14.5); WHITE BLOOD COUNT 15.6 10*3/uL (4.8-10.8)
[2019-06-07 22:43] LABS: BUN 26 mg/dl (7-24); CHLORIDE 107 mmol/L (98-107); CREATININE 1.89 mg/dL (0.70-1.30); POTASSIUM 4.8 mmol/L (3.5-5.1); SODIUM 138 mmol/L (136-145)
[2019-06-07 22:44] LABS: ACETAMINOPHEN (TYLENOL) < 5.0 ug/ml (10-30); ETHYL ALCOHOL < 3.0 mg/dl (<3)
[2019-06-08 01:42] LABS: BILIRUBIN NEGATIVE (NEGATIVE); BLOOD 3+ (NEGATIVE); CLARITY SL CLOUDY (CLEAR); COLOR YELLOW (YELLOW); GLUCOSE NEGATIVE (NEGATIVE); KETONE TRACE (NEGATIVE); LEUKO ESTERASE NEGATIVE (NEGATIVE); NITRITE NEGATIVE (NEGATIVE); PH 5.5 (5.0-9.0); SPECIFIC GRAVITY 1.025 (1.005-1.030); UROBILINOGEN 0.2 E.U./dl (0.2-1.0)
[2019-06-08 01:49] LABS: BACTERIA 1+; RBC TNTC rbc/hpf (0-2)
[2019-06-08 01:51] LABS: URINE AMPHETAMINES < 1000 (1000ng/ml); URINE BARBITURATES < 200 (200ng/ml); URINE BENZODIAZEPINES < 200 (200ng/ml); URINE CANNABINOIDS (THC) < 50 (50ng/ml); URINE COCAINE < 300 (300ng/ml); URINE METHADONE < 300 (300ng/ml); URINE OPIATES < 300 (300ng/ml); URINE PHENCYCLIDINE < 25 (25ng/ml)
[2019-06-08] MEDS ORDERED: LASIX20 MG PO (02:35)
[2019-06-08] MEDS ORDERED: CYCLOBENZAPRINE10 MG PO (02:35)
[2019-06-08] MEDS ORDERED: GLUCOTROL10 MG PO (02:36)
[2019-06-08] MEDS ORDERED: PROTONIX40 MG PO (02:37)
[2019-06-08] MEDS ORDERED: TRULICITY1.5 MG/0.5 SC (02:37)
[2019-06-08 08:44] LABS: BASO % 0.3 % (0.0-1.0); EOS # 0.1 10*3/uL (0.0-0.4); EOS % 1.2 % (1.0-4.0); HEMOGLOBIN 13.3 g/dl (14.0-18.0); LYMPH # 2.3 10*3/uL (1.3-4.4); LYMPH % 23.7 % (27.0-41.0); MEAN CELL VOLUME 89.9 fl (80.0-94.0); MEAN CORPUSCULAR HGB 29.9 pg (27.0-31.0); MEAN CORPUSCULAR HGB CONC 33.3 g/dl (33.0-37.0); MEAN PLATELET VOLUME 10.2 fl (9.6-12.3); MONO % 10.1 % (3.0-9.0); NEUT # 6.4 10*3/uL (2.3-7.9); NEUT % 64.4 % (47.0-73.0); PLATELET COUNT AUTOMATED 249 10*3/uL (130-400); RED BLOOD COUNT 4.45 10*6/uL (4.50-5.90); RED CELL DISTRI WIDTH 13.3 % (0-14.5); WHITE BLOOD COUNT 9.9 10*3/uL (4.8-10.8)
[2019-06-08 08:55] LABS: ACT PARTIAL THROMBO TIME 25.3 SECONDS (20.0-32.1)
[2019-06-08 09:00] LABS: ALKALINE PHOSPHATASE 84 U/L (45-117); BUN 25 mg/dl (7-24); CHLORIDE 107 mmol/L (98-107); CREATININE 0.94 mg/dL (0.70-1.30); SGOT/AST 14 IU/L (3-35); SGPT/ALT 13 U/L (12-78); SODIUM 138 mmol/L (136-145); TOTAL PROTEIN 6.5 gm/dL (6.4-8.2)
== END 2019-06-08 17:30 | disposition short-term general hospital (02) ==
LOC: ED 21:59
PROVIDERS: Emergency Medicine; Emergency Medicine Emergency Medical Services
DX: F31.9 Bipolar disorder, unspecified (principal); I48.91 Unspecified atrial fibrillation; I11.0 Hypertensive heart disease with heart failure; I50.9 Heart failure, unspecified; E78.5 Hyperlipidemia, unspecified; E66.01 Morbid (severe) obesity due to excess calories; E11.40 Type 2 diabetes mellitus with diabetic neuropathy, unspecified; M19.90 Unspecified osteoarthritis, unspecified site; F25.0 Schizoaffective disorder, bipolar type; F43.21 Adjustment disorder with depressed mood; Z88.0 Allergy status to penicillin; Z91.018 Allergy to other foods; Z88.1 Allergy status to other antibiotic agents; Z79.899 Other long term (current) drug therapy; Z86.718 Personal history of other venous thrombosis and embolism

== ENCOUNTER 2019-09-22 16:11 | Inpatient (IN) | payer OTHER ==
[2019-09-22] VITALS (7 sets, daily range): BP systolic 64–90; BP diastolic 30–47
[~2019-09-22] VITALS: Ht 177.8 cm; Wt 147.5 kg
[~2019-09-22 16:11] MED LIST changes: +CYCLOBENZAPRINE10 MG PO; +GLUCOTROL10 MG PO; +LASIX20 MG PO; +PROTONIX40 MG PO; +TRULICITY1.5 MG/0.5 SC
[2019-09-22 17:14] LABS: BASO % 0.2 % (0.0-1.0); EOS % 0.1 % (1.0-4.0); HEMATOCRIT 41.8 % (42.0-52.0); HEMOGLOBIN 13.8 g/dl (14.0-18.0); LYMPH # 1.7 10*3/uL (1.3-4.4); LYMPH % 15.4 % (27.0-41.0); MEAN CELL VOLUME 91.3 fl (80.0-94.0); MEAN CORPUSCULAR HGB 30.1 pg (27.0-31.0); MONO # 0.8 10*3/uL (0.1-1.0); NEUT # 8.5 10*3/uL (2.3-7.9); NEUT % 76.8 % (47.0-73.0); PLATELET COUNT AUTOMATED 247 10*3/uL (130-400); RED BLOOD COUNT 4.58 10*6/uL (4.50-5.90); RED CELL DISTRI WIDTH 12.7 % (0-14.5); WHITE BLOOD COUNT 11.1 10*3/uL (4.8-10.8)
[2019-09-22 17:25] LABS: ACT PARTIAL THROMBO TIME 24.5 SECONDS (20.0-32.1)
[2019-09-22 17:28] LABS: ALBUMIN 3.4 gm/dl (3.1-4.5); ALKALINE PHOSPHATASE 72 U/L (45-117); BUN 36 mg/dl (7-24); CHLORIDE 108 mmol/L (98-107); CREATININE 1.81 mg/dL (0.70-1.30); LIPASE 141 U/L (73-393); POTASSIUM 4.3 mmol/L (3.5-5.1); SGOT/AST 19 IU/L (3-35); SGPT/ALT 18 U/L (12-78); SODIUM 139 mmol/L (136-145); TOTAL PROTEIN 6.9 gm/dL (6.4-8.2)
[2019-09-22 17:30] LABS: ETHYL ALCOHOL < 3.0 mg/dl (<3); TROPONIN I < 0.015 ng/ml (<0.045)
--- NOTE | 2019-09-22 17:48 | NUR ---
psychiatric assessment: met with client who is well known to me, client was sent to inpatient last visit hree, client resides with his and they do not get along, most often his crisis stems from them fighting just as today. client has a long hx of bipolar disorder. today there was a tv box in their basement and she wanted him to get it out so he couldnt fit it in the car so he had to break it down, it took much effort and he finally got it in the car and theywent to recycle it and he was so tired and his legs gave out so he fell on the ground, at which time his pants came down so she started screaming at him, then some workers called 911 and the police came and told him he had to get up or he would be arrested for indecent exposure, then when they go home apparently he said he was suicidal and told me he doesnt want to live and was going to take all of his pills and was going to stab his with a steak knife, he said this to the police so both they and are aware of the threat. client was then brought here, he did call 911 himself. he could be sent to an inpatient psych unit, but he is not medically cleared , in talking with dr schuster, he will need to be admitted medically first to stabalize. typically in the past dr obrien has declined to admit client here due to past issues, so i have been sending him out. i can do that , unless dr obrien wants to admit him here. i can follow as needed.
--- NOTE | 2019-09-22 19:44 | NUR ---
CRITICAL LAB LA 3.0, NOTIFIED.
--- NOTE | 2019-09-22 20:10 | NUR ---
A 59, admitted to ICCU, under the services of MARYANN Stafford DO with a diagnosis of ARF. Chief complaint is FOUND FALLING DOWN AT [facility]. Patient arrived via stretcher from ER. Monitor applied. Initial assessment completed. Vital signs taken and recorded. MARYANN STAFFORD DO notified of admission to the unit. Orders received. See assessment for past medical history, medications and allergies. Patient and/or family oriented to unit. [facility] ICCU visitation policy reviewed. Clothing/patient valuable form completed. TRUPTI BOWIE
[2019-09-22] MEDS ORDERED: ZESTRIL2.5 MG PO (20:23)
[2019-09-22] MEDS ORDERED: FENOFIBRATE145 M1 PO (20:28)
[2019-09-22 20:29] LABS: BILIRUBIN NEGATIVE (NEGATIVE); BLOOD 3+ (NEGATIVE); CLARITY SL CLOUDY (CLEAR); COLOR YELLOW (YELLOW); GLUCOSE NEGATIVE (NEGATIVE); KETONE NEGATIVE (NEGATIVE); LEUKO ESTERASE TRACE (NEGATIVE); NITRITE NEGATIVE (NEGATIVE); PH 5.5 (5.0-9.0); SPECIFIC GRAVITY >= 1.030 (1.005-1.030); UROBILINOGEN 0.2 E.U./dl (0.2-1.0)
[2019-09-22] MEDS ORDERED: VITAMIN D350000 UNIT PO (20:32)
[2019-09-22 20:37] LABS: BACTERIA 4+; MUCOUS TRACE; RBC TNTC rbc/hpf (0-2); URINE AMPHETAMINES < 1000 (1000ng/ml); URINE BARBITURATES < 200 (200ng/ml); URINE BENZODIAZEPINES < 200 (200ng/ml); URINE CANNABINOIDS (THC) < 50 (50ng/ml); URINE COCAINE < 300 (300ng/ml); URINE METHADONE < 300 (300ng/ml); URINE OPIATES < 300 (300ng/ml)
[2019-09-22 20:38] LABS: URINE PHENCYCLIDINE < 25 (25ng/ml)
--- NOTE | 2019-09-22 21:02 | NUR ---
A 59, admitted to ICCU, under the services of MARYANN Stafford DO with a diagnosis of ARF. Chief complaint is PT FELL DOWN AT THE [facility] AND HIS PANTS FELL DOWN AND THE CONSTRUCTIONS WORKERS CALLED THE POLICE. Patient arrived via stretcher from ER. Monitor applied. Initial assessment completed. Vital signs taken and recorded. MARYANN STAFFORD DO notified of admission to the unit. Orders received. See assessment for past medical history, medications and allergies. Patient and/or family oriented to unit. [facility] ICCU visitation policy reviewed. Clothing/patient valuable form completed. TRUPTI BOWIE
--- NOTE | 2019-09-22 21:19 | NUR ---
MEDS RECONCILED WITH PT
--- NOTE | 2019-09-22 21:19 | NUR ---
PT ADMITS TO THINGKING ABOUT TAKING HIS WHOLE BOTTLE OF ULTRAM TO KILL HISSELF, STATES HE HAS A BOTTLE WITH >40 PILLS
[2019-09-22] MEDS ORDERED: ULTRAM50 MG PO (21:20)
--- NOTE | 2019-09-22 22:00 | NUR ---
U NOTIFIED OF CONSULT.
--- NOTE | 2019-09-22 23:30 | NUR ---
SITTING ON SIDE OF BED. DOES RECALL GETTING UPSET WITH EARLIER TODAY AND CALLING 911 BECAUSE HE WANTED TO HURT HIMSELF. HE STILLS FEELS HOMICIDAL AND STATES "IF I SEE HER, I WILL KILL HER." "I DESPISE THAT WOMAN." VOICES THAT HE WILL ALSO TAKE HIS WHOLE BOTTLE OF 40 TRAMADOL AND DO HIMSELF IN.
[2019-09-23] VITALS: BP 89/40
[2019-09-23 02:24] VITALS: BP 117/66
[2019-09-23 04:00] VITALS: BP 94/49
[2019-09-23 06:16] LABS: BASO % 0.3 % (0.0-1.0); EOS # 0.2 10*3/uL (0.0-0.4); HEMATOCRIT 37.8 % (42.0-52.0); HEMOGLOBIN 12.5 g/dl (14.0-18.0); LYMPH % 34.2 % (27.0-41.0); MEAN CELL VOLUME 93.1 fl (80.0-94.0); MEAN CORPUSCULAR HGB 30.8 pg (27.0-31.0); MEAN CORPUSCULAR HGB CONC 33.1 g/dl (33.0-37.0); MEAN PLATELET VOLUME 10.5 fl (9.6-12.3); MONO # 0.8 10*3/uL (0.1-1.0); MONO % 9.6 % (3.0-9.0); NEUT # 4.6 10*3/uL (2.3-7.9); NEUT % 53.6 % (47.0-73.0); PLATELET COUNT AUTOMATED 217 10*3/uL (130-400); RED BLOOD COUNT 4.06 10*6/uL (4.50-5.90); RED CELL DISTRI WIDTH 12.7 % (0-14.5); WHITE BLOOD COUNT 8.7 10*3/uL (4.8-10.8)
[2019-09-23 06:26] LABS: CHLORIDE 110 mmol/L (98-107); POTASSIUM 3.8 mmol/L (3.5-5.1); SODIUM 141 mmol/L (136-145)
[2019-09-23 06:39] LABS: CREATININE 1.01 mg/dL (0.70-1.30); FREE T4 1.18 ng/dl (0.76-1.46); PHOSPHOROUS 2.8 mg/dL (2.5-4.9)
[2019-09-23 06:44] LABS: BUN 26 mg/dl (7-24)
[2019-09-23 07:13] LABS: VITAMIN D, 25-HYDROXY 41.8 ng/mL (30-100)
[2019-09-23 08:00] VITALS: BP 100/55
--- NOTE | 2019-09-23 08:06 | NUR ---
PHYSICAL THERAPY Screen received pt admitted from home for behavioral health and BP issues, please consult PT if pt has decline in funtional status from baseline, thank you. Marsha Simms PT
--- NOTE | 2019-09-23 08:30 | NUR ---
PATIENT VOICED THAT HE STILL HAS THOUGHTS OF HARMING HIMSELF AND HARMING HIS . HE STATES THAT THEY ARE LIKE GASOLINE AND FIRE TOGETHER. PATIENT VERY CALM AND COOPERATIVE WITH STAFF. WILL CONTINUE TO MONITOR.
[2019-09-23 12:00] VITALS: BP 118/65
--- NOTE | 2019-09-23 13:30 | NUR ---
PATIENT DISCHARGED TO [facility]. ALL PERSONAL BELONGINGS SENT WITH PATIENT. IV AND INTERNAL AUDIT SENIOR MANAGER DISCONTINUED. DISCHARGE PACKET GIVEN TO U NURSE.
--- NOTE | 2019-09-23 16:20 | NUR ---
Nursing screen received when patient was in ICCU. Patient is now transferred to [facility] for suicide ideations. Olimpia Colon OTR/l
== END 2019-09-23 13:30 | disposition home health service (06) | DRG 885 ==
LOC: ED 16:11 → EDHOLD 18:21 → ICCU 18:21 → EDHOLD 18:34 → ICCU 18:52
PROVIDERS: Emergency Medicine; Internal Medicine; ADMIT Internal Medicine
DX: F25.0 Schizoaffective disorder, bipolar type (principal); N17.0 Acute kidney failure with tubular necrosis; F31.4 Bipolar disorder, current episode depressed, severe, without psychotic features; R45.851 Suicidal ideations; E87.2 Acidosis; I50.32 Chronic diastolic (congestive) heart failure; I48.21 Permanent atrial fibrillation; Z68.42 Body mass index [BMI] 45.0-49.9, adult; I95.9 Hypotension, unspecified; R45.850 Homicidal ideations; D72.829 Elevated white blood cell count, unspecified; D72.810 Lymphocytopenia; E78.5 Hyperlipidemia, unspecified; G25.81 Restless legs syndrome; M19.90 Unspecified osteoarthritis, unspecified site; E11.40 Type 2 diabetes mellitus with diabetic neuropathy, unspecified; E11.65 Type 2 diabetes mellitus with hyperglycemia; I89.0 Lymphedema, not elsewhere classified; E66.01 Morbid (severe) obesity due to excess calories; D64.9 Anemia, unspecified; I70.90 Unspecified atherosclerosis; I11.0 Hypertensive heart disease with heart failure; E83.42 Hypomagnesemia; E53.8 Deficiency of other specified B group vitamins; F41.1 Generalized anxiety disorder; Z79.899 Other long term (current) drug therapy; Z88.1 Allergy status to other antibiotic agents; Z88.0 Allergy status to penicillin; Z91.018 Allergy to other foods

== ENCOUNTER 2019-09-23 11:45 | Inpatient (IN) | payer OTHER ==
[~2019-09-23] VITALS: Ht 177.8 cm; Wt 14679.6 kg
[~2019-09-23 11:45] MED LIST changes: +FENOFIBRATE145 M1 PO; +ULTRAM50 MG PO; +VITAMIN D350000 UNIT PO; +ZESTRIL2.5 MG PO
--- NOTE | 2019-09-23 13:43 | NUR ---
LISAOLLIE COLEMAN a 59 year old M admitted via wheel chair from the ADMITTING as a voluntary admission. Arrived on unit at 1343. ALLERGIES: PCN, CHOCOLATE FLAVOR AND MINOCYCLINE. Vital signs are: 97.7, 88, 18, 95/63 AND 98% RA. The client signed the following forms with stated understanding: Authorization For The Release of Medical Information, Clothing List, Consent to Voluntary Admission and Hospitalization, Consent and Release Forms/Receipt of Rights, Acknowledgement of Advance Directive Information, Behavioral Health Consent Form, and Informed Consent of Medications. Admitted under the services of Dr. SHAMEKA DESAI,[facility]. A search was conducted and hazardous articles were removed. Client was oriented to the unit. SHERRY PALOMO
--- NOTE | 2019-09-23 14:10 | NUR ---
DR. SHAVER NOTIFIED OF NEW ADMISSION, MEDICATIONS AND DIAGNOSIS UPDATED FOR REVIEW. PATIENT WILL BE UNDER THE CARE OF DR. SHAVER.
[2019-09-23 15:07] VITALS: BP 95/63
[2019-09-23 15:48] VITALS: BP 95/63
--- NOTE | 2019-09-23 17:41 | NUR ---
PATIENT WITH COMPLAINT OF BURNING WITH URINATION. URINE SPECIMEN COLLECTED VIA CLEAN CATCH. URINE DARK YELLOW. URINE OUTPUT OF 400ML. PATIENT CONTINENT PRIOR TO URINE SPECIMEN COLLECTION
[2019-09-23 17:56] LABS: BILIRUBIN NEGATIVE (NEGATIVE); BLOOD 3+ (NEGATIVE); CLARITY CLEAR (CLEAR); COLOR YELLOW (YELLOW); GLUCOSE TRACE (NEGATIVE); KETONE NEGATIVE (NEGATIVE); LEUKO ESTERASE NEGATIVE (NEGATIVE); NITRITE NEGATIVE (NEGATIVE); SPECIFIC GRAVITY >= 1.030 (1.005-1.030); UROBILINOGEN 0.2 E.U./dl (0.2-1.0)
[2019-09-23 18:01] LABS: MUCOUS 1+; RBC 16-20 rbc/hpf (0-2)
[2019-09-23 20:00] VITALS: BP 112/75
--- NOTE | 2019-09-23 21:40 | NUR ---
P-DEPRESSED, SUICIDAL THOUGHTS, C\\O ANXIETY I-ENCOURAGE VENTILATION OF FEELINGS & PROVIDE EMOTIONAL SUPPORT, ADMINISTER MEDS, MONITOR SLEEP. R-PT HAS BEEN SITTING IN THE DINING ROOM IN A WHEELCHAIR WATCHING TV & PLAYING CARDS. PT STATES THAT HE IS DEPRESSED & HAS ANXIETY. STATED THAT HE HAS SUICIDAL FEELINGS BUT CONTRACTS FOR SAFETY WHILE HERE. HOWEVER, STATED THAT HIS "ORIGINAL PLAN WAS TO OD ON TRAMADOL. NOT GOING TO CUT OR STRANGLE MYSELF. WHEN I GET OUT OF HERE I AM GOING TO TAKE MY PAIN PILLS & OD. I DON'T WANT TO DO IT. JUST DONT HAVE A CHOICE." DISCUSSED STRESSORS OF GOING THROUGH A DIVORCE WITH HIS . "IT HAS GOTTEN WORSE OVER THE PAST 5 YEARS. SHE CONTROLS AL THE FINANCES. EVERY TIME MY GETS MAD, SHE THREATENS TO KICK ME OUT OF THE HOUSE. I CAN'T GO BACK TO HOUSE EVEN IF MY TAKES ME BACK. ITS EMOTIONALLY OPPRESSIVE." PT WENT ON TO SAY, "I NEED HELP FINDING A PLACE TO LIVE THATS NOT A HOMELESS HALF-WAY & I NEED A GUARDIAN. I CANT TAKE A HOMELESS HALF-WAY. I HAVE TOO MANY MEDICAL PROBLEMS. THEY LET YOU SLEEP AT NIGHT. & MAKE YOU LEAVE DURING THE DAY. I CANT DO THAT WITH MY HEALTH. I'M AFRAID OF FREEZING TO IN THE COLD. I NEED A PLACE TO SLEEP & A GUARDIAN" ATE SNACK. COMPLIANT TAKING HS MEDICATIONS. MOVES ABOUT THE UNIT VIA WHEELCHAIR & HAS WENT TO THE BATHROOM INDEPENDENLTY. CONTINENT OF URINE. STATED THAT HE HAD A BM EARLIER TODAY. P-MONITOR & PROVIDE PHYSICAL ASSISTANCE & EMOTIONAL SUPPORT NEEDED.
--- NOTE | 2019-09-24 06:10 | NUR ---
PT HAS ONLY SLEPT FOR ABOUT 1 1/2 HOURS. UP TO BATHROOM INDEPENDENTLY.
[2019-09-24 06:54] LABS: THYROID STIM HORMONE (HS) 1.69 uIU/ml (0.358-4.75)
[2019-09-24 07:29] VITALS: BP 113/61
--- NOTE | 2019-09-24 07:57 | NUR ---
PHYSICAL THERAPY Screen received as well as orders for PT will follow, thank you Marsha Simms PT
--- NOTE | 2019-09-24 08:15 | NUR ---
Treatment Plan meeting was held with Dr. Sanford, RN, AT, FIBREGLASS LAY UP WORKER-S and Plate Glass Installer Helper in attendance. Plan for discharge next week. Discharge Plan at this time is for Pt. to return home.
[2019-09-24 09:38] LABS: VITAMIN D, 25-HYDROXY 45.1 ng/mL (30-100)
--- NOTE | 2019-09-24 10:23 | NUR ---
DR. SHAVER ON UNIT TO ASSESS PATIENT.
--- NOTE | 2019-09-24 10:23 | NUR ---
DR. SHAVER ON UNIT TO ASSESS PT, UPDATE PROVIDED.
--- NOTE | 2019-09-24 11:15 | NUR ---
Met with pt this AM. Pt stated that he cannot return to his home that he shares with his , but then asked this conventional underwriter to call pt's to see if pt can return to his home. Explored other housing options. Pt voiced that his only options if he cannot return home is killing himself or going to alf. Pt spoke often of his "faulty thinking." Encouraged pt to consider that these extreme thoughts of suicide or alf are faulty thinking. Pt was able to voice recognition of this but then stated that he sees no hope. Pt continued to voice suicidal ideations throughout the conversation. Pt had asked for a guardian. Explained what that entails and that pt must first be deemed incompetent. Pt stated that he knows he is competent and this conventional underwriter agreed with this. Explored why pt feels he needs a guardian. It was determined that pt is in need of a financial POA or payee program and case management services. Pt displayed a flat affect throughout meeting. He is stating that he is hopeless and helpless. Pt continues to voice suicidal ideations but admits that the homicidal threats were made out of anger and that he would never attempt to take the life of his . Pt would vacilate between wanting a divorce and wanting to return home to his . He has no social support beyond his . Pt is voicing that he is wanting help.
--- NOTE | 2019-09-24 11:44 | NUR ---
AM GROUP PT ATTENDED MORNING GROUP THERAPY AND PARTICIPATED IN THE GROUP DISCUSSION. PT IS VERY NEGATIVE AND PESIMISTIC AND DID DISCUSS HIS THOUGHTS OF SUICIDE. PT WAS ENCOURAGED BY PEERS THAT THERE WAS HOPE AND HELP FOR HIS SITUATION. PT WAS RECEPTIVE TO GROUP DISCUSSION.
--- NOTE | 2019-09-24 13:34 | NUR ---
P: PT MOOD IS DEPRESSED. IRRITABLE AND HOPELESS/HELPLESS. PT ISOALTIVE TO SELF THROUGHOUT THE DAY, LITTLE TO NO INTERACTION NOTED WITH STAFF OR PEERS. PT VOICES SUICIDAL THOUGHTS STATING "I AM THINKING ABOUT IT, BUT I WOULDN'T DO ANYTHING WHILE I AM HERE BUT WHEN I LEAVE I WILL. I CAN'T GO TO A HOMELESS PRISON BECAUSE THEY WANT YOU TO LEAVE DURING THE DAY AND I JUST CAN'T DO THAT, I CAN'T WALK AND I HAVE TO MANY MEDICAL PROBLEMS AND I CAN'T AFFORD A ALF". I: PROVIDE EMOTIONAL SUPPORT AND 1:1 FOR PT TO VOICE FEELINGS, ENCOURAGE MED COMPLIANCE AND PROVIDE MED EDUCATION, MONITOR PT BEHAVIORS ON Q15 MIN SAFETY CHECKS, ENCOURAGE PT TO VOICE SUICIDAL THOUGHTS AND VERBALLY CONTRACT FOR SAFETY. R: PT ALERT TO PERSON, PLACE, TIME AND SITUATION. PT MED COMPLIANT WITHOUT DIFFICULTY, MED EDUCATION PROVIDED. PT CONTINUES TO BE ISOLATIVE TO SELF AT TIMES, PT PARTICIAPTED IN GROUP. PT CONTINUES TO VOICE SUICIDAL THOUGHTS BUT STATES "I WOULD NEVER DO ANYTHING HERE, JUST WHEN I LEAVE". PT UP TO A WHEELCHAIR, WILL TRANSFER SELF AND SHIFT WEIGHT INDEPENDENTLY. PT CONTINENT OF BOWEL AND BLADDER. PT SHOWERED THIS SHIFT. P: MONITOR PT BEHAVIORS ON Q15 MIN SAFETY CHECKS, ENCOURAGE MED COMPLIANCE AND PROVIDE MED EDUCATION, PROVIDE EMOTIONAL SUPPORT AND 1:1 FOR PT TO VOICE FEELINGS, ENCOURAGE PT TO VOICE SUICIDAL THOUGHTS AND VERBALLY CONTRACT FOR SAFETY.
--- NOTE | 2019-09-24 15:41 | NUR ---
PM GROUP/CARDS PT ATTENDED AND PARTICIPATED IN AFTERNOON GROUP THERAPY. PT WAS FOCUSED, ON TASK AND SOCIALABLE. PT EXPRESSED NO SUICIDAL IDEATIONS WHILE IN GROUP
--- NOTE | 2019-09-24 16:12 | NUR ---
PER CALL TO SAIDA ARROYO [facility] APPROVED FOR 3 DAYS. NEXT REVIEW DATE IS . AUTH NUMBER [id number]
--- NOTE | 2019-09-24 17:31 | NUR ---
SHIFT CHART CHECK COMPLETED.
[2019-09-24 19:53] VITALS: BP 103/57
--- NOTE | 2019-09-24 21:30 | NUR ---
Patient alert to person,place,time,and situation. Mood depressed. Patient playing cards with other patients at this time in diningroom. Patient admits to having suicidal thoughts but patient said " don't worry I won't do anything here." Encouraged patient to contract for safety. Patient compliant with HS medications without any difficulty. Provided 1:1 for emotional support and therapeutic communication. Plan to continue to encourage medication compliance and continue to encourage adryan for safety. Also continue to provide emotional support and therapeutic communication. Q 15 minute safety checks continued and maintained. Continue to monitor behaviors and moods. See [facility] flowsheet for further documentation.
--- NOTE | 2019-09-25 00:08 | NUR ---
24 HR chart check completed.
--- NOTE | 2019-09-25 05:07 | NUR ---
Patient slept approx. 3 hours throughout shift with multiple awakenings. Q 15 minute safety checks continued and maintained.
[2019-09-25 07:32] VITALS: BP 106/67
--- NOTE | 2019-09-25 09:14 | NUR ---
Per pt request, provided pt with contact information for legal executive services for [facility].
--- NOTE | 2019-09-25 09:56 | NUR ---
DR SHAVER ON UNIT TO SEE PATIENT
--- NOTE | 2019-09-25 10:22 | NUR ---
Treatment team meeting held with Dr Sanford, RN, and ELVA. Plan is for pt to return home next week.
--- NOTE | 2019-09-25 11:16 | NUR ---
P: PT DEPRESSED AND TEARFUL AT TIMES STATING "I AM MUCH MORE DEPRESSED TODAY THAN I WAS YESTERDAY." I: PROVIDE EMOTIONAL SUPPORT AND 1:1 FOR PT TO VOICE FEELINGS, ENCOURAGE MED COMPLIANCE AND PROVIDE MED EDUCATIN, ENCOURAGE GROUP PARTICIAPTION AND SOCIALIZATION, ENCOURAGE PT TO VOICE SUICIDAL THOUGHTS AND VERBALLY CONTRACT FOR SAFETY. R: PT ALERT TO PERSON, PLACE, TIME AND SITUATION. PT MED COMPLIANT WITHOUT DIFFICUTLY, MED EDUCATION PROVIDED. PT REMAINS DEPRESSED, WILL INTERACT WITH PEERS AT TIMES. PT DENIES ANY SUICIDAL THOUGHTS AT THIS TIME STATING "IM NOT THINKING ABOUT IT RIGHT NOW BUT WHEN I LEAVE I WILL." PT UP TO WHEELCHAIR, ABLE TO SHIFT WEIGHT INDEPENDENTLY. PT CONTINENT OF BOWEL AND BLADDER. P: MONITOR PT BEHAVIORS ON Q15 MIN SAFETY CHECKS, ENCOURAGE MED COMPLIANCE AND PROVIDE MED EDUCATION, PROVIDE EMOTIONAL SUPPORT AND 1:1 FOR PT TO VOICE FEELINGS, ENCOURAGE PT TO VOICE SUICIDAL THOUGHTS AND VERBALLY CONTRACT FOR SAFETY, ENCOURAGE GROUP PARTICIPATION AND SOCIALIZATION.
--- NOTE | 2019-09-25 11:49 | NUR ---
AM GROUP PT ATTENDED MORNING GROUP THERAPY AND PARTICIPATED BY PLAYING CARDS WITH PEERS. PT WAS FOCUSED ON THE GAME AND EXPRESSED NO SUICIDAL IDEATIONS WHILE IN GROUP
--- NOTE | 2019-09-25 14:50 | NUR ---
This technical publications writer has left 3 voicemail messages for pt's Edel. Awaiting return call.
--- NOTE | 2019-09-25 16:05 | NUR ---
PM GROUP/WATERCOLORS PT ATTENDED AFTERNOON GROUP THERAPY AND PARTICIPATED BY WORKING ON A WATERCOLOR. PT STATED, "I NEED SOMETHING TO DO TO KEEP MY MIND OCCUPIED, IF NOT I'M NOT KIDDING YOU, I WOULD END IT ALL RIGHT NOW!"
[2019-09-25 19:44] VITALS: BP 123/63
--- NOTE | 2019-09-25 22:41 | NUR ---
P-DEPRESSED MOOD I-ASSESS ORIENTATION, MOOD, AND BEHAVIORS. ASSESS FOR ANY SI/HI AND CONTRACT FOR SAFETY NEEDED. PROVIDE 1:1 WITH THERAPEUTIC INTERVENTIONS. PROVIDE SUPPORT NEEDED. ENCOURAGE MEDICATION COMPLIANCE AND EDUCATE. MONITOR SLEEP. R-PT ALERT AND ORIENTED X4. PT CALM, COOPERATIVE, AND INTERACTIVE. PT SAT IN DINING ROOM WATCHING TV WESTERNS AND HAD HS SNACK. MOBILIZES SELF THROUGHOUT UNIT IN A WHEELCHAIR, ABLE TO MAKE NEEDS KNOWN. PT MEDICATION COMPLIANT WITHOUT DIFFICULTY AFTER REVIEW. PT DENIES SI/HI STATING HE STILL FEELS VERY DEPRESSED BUT WOULD NOT HURT HIMSELF HERE BUT IS NOT SURE WHAT HE WOULD DO WHEN HE LEAVES HERE, PT CONTRACTED FOR SAFETY. PT DENIES HALLUCINATIONS, DELUSIONS, AND PAIN. P- CONTINUE TO MONITOR MOOD AND BEHAVIORS. ENCOURAGE PT T0 VOICE SUICIDAL THOUGHTS AND VERBALLY CONTRACT FOR SAFETY. PROVIDE 1:1 WITH EMOTIONAL SUPPORT. ENCOURAGE MEDICATION COMPLIANCE AND EDUCATE. MAINTAIN Q 15 MIN SAFETY CHECKS.
--- NOTE | 2019-09-26 05:40 | NUR ---
24 HOUR CHART CHECK COMPLETED
--- NOTE | 2019-09-26 06:03 | NUR ---
PATIENT OBSERVED ON Q 15 MIN CHECKS TO HAVE SLEPT APPROX 5 HOURS WITH NO AWAKENINGS OR SIGNS AND SYMPTOMS OF DISTRESS NOTED.
[2019-09-26 08:33] VITALS: BP 115/76
--- NOTE | 2019-09-26 11:02 | NUR ---
Occupational therapy orders received and OT evaluation completed in full on floor three. Patient precautions include fall risk, chair alarm, decreased safety awareness with standard walker and w/c use, and B/L LE pain. Per OT eval and POC, OT recommends a SNF. Patient would benefit from continued OT treatment to maximize safety and independence with ADLs, functional mobility, and transfers. Patient complexity is [place], [id number]. Thank you for the referral. Ashli Murray, OTR/L
--- NOTE | 2019-09-26 11:10 | NUR ---
PHYSICAL THERAPY Norberto completed moderate level of complexity 39803 recomend SNF at discharge full report to follow PT to work on transfers, Amb with AD, ROM/strengthening, balance/safety. Marsha Simms PT
--- NOTE | 2019-09-26 11:22 | NUR ---
Treatment Plan meeting was held this a.m. with Dr. Sanford, RN, AT, PLUGGER-S and Senior Applications Architect in attendance. Plan for discharge Next week. Pt. will return home with his at discharge.
--- NOTE | 2019-09-26 11:39 | NUR ---
Spoke with pt's Lissette who stated that she is unsure if she wants pt to return home. Lissette shared that the police advised her to get a restraining order against pt, but she has not yet done that and is unsure if she will. Lissette voiced multiple times that she is not sure what she is going to do. Offered to schedule a family meeting and Lissette is willing to do so. Family meeting schedule for 09/29/19 at 11:00. Spoke with pt this AM about possibility of SNF at discharge. Will await PT/OT evaluations to determine the need.
--- NOTE | 2019-09-26 11:40 | NUR ---
ALERT AND ORIENTED X4. DEPRESSED MOOD. CALM. WITHDRAWN TO SELF. DENIES HALLUCINATIONS AND DELUSIONS. PT STATED HE NO LONGER HAS HI, HOWEVER HAS SI WITH A PLAN TO JUMP OFF THE BRIDGE. PT STATED HE CAN NO LONGER OVERDOSE ON MEDICATION BECAUSE HE HAS NO ACCESS TO MEDICATION. MEDICATION COMPLAINT WITHOUT DIFFICULTY. MEDICATION EDUCATION PROVIDED AND VERBALIZED UNDERSTANDING. BEHAVIORS MONITORED WITH Q15 MINUTE SAFETY CHECKS. PT VERBALLY CONTRACTED FOR SAFETY. FALL PRECAUTION MAINTAINED. SEE [facility] FLOWSHEET FOR SPECIFIC MONITORING. NO C/O PAIN.
--- NOTE | 2019-09-26 11:46 | NUR ---
AM GROUP PT ATTENDED MORNING GROUP THERAPY AND PARTICIPATED BY WATCHING A MOVIE. PT EXPRESSED NO SUICIDAL IDEATIONS WHILE IN GROUP
--- NOTE | 2019-09-26 15:40 | NUR ---
PM GROUP PT ATTENDED AND PARTICIPATED IN ALL GROUP ACTIVITIES. PT EXPRESSED NO SUICIDAL IDEATIONS WHILE IN GROUP. PT WAS FOCUSED AND ON TASK
--- NOTE | 2019-09-26 16:19 | NUR ---
AFTER CONTINUED REVIEW WITH FRANCISCO ARROYO APPROVED 4 ADDITIONAL DAYS. NRD 09/30
[2019-09-26 19:59] VITALS: BP 121/78
--- NOTE | 2019-09-26 21:09 | NUR ---
Patient alertand oriented x4. Mood depressed. Patient isolative to self while in diningroom. Patient admits to having suicidal thoughts and plan to jump off bridge. Encouraged patient to contract for safety. Patient compliant with HS medications without any difficulty. Provided 1:1 for emotional support and therapeutic communication. Plan to continue to encourage medication compliance and continue to encourage adryan for safety. Also continue to provide emotional support and therapeutic communication. Q 15 minute safety checks continued and maintained. Continue to monitor behaviors and moods. See [facility] flowsheet for further documentation.
--- NOTE | 2019-09-27 00:19 | NUR ---
24 HR chart check completed.
--- NOTE | 2019-09-27 05:33 | NUR ---
Patient slept approx. 2 hours throughout shift. Q 15 minute safety checks continued and maintained.
[2019-09-27 07:54] VITALS: BP 124/74
--- NOTE | 2019-09-27 12:11 | NUR ---
AM GROUP/MUSIC/EXERCISE/BINGO PT IN ATTENDANCE AND PARTICIPATED IN ALL ACTIVITY'S. PT ON TASK WITH NO AGITATION OR S.I. EXPRESSED AT THIS TIME. PT WILL CONTINUE TO ATTEND AND PARTICIPATE IN ALL GROUP ACTIVITY'S.
--- NOTE | 2019-09-27 15:42 | NUR ---
ALERT AND ORIENTED X4. DEPRESSED MOOD. CALM. WITHDRAWN TO SELF. DENIES HALLUCINATIONS AND DELUSIONS. PT STATED HE NO LONGER HAS HI, HOWEVER HE STILL HAS SI WITH A PLAN TO JUMP OFF THE BRIDGE. PT STATED HE CAN NO LONGER OVERDOSE ON MEDICATION BECAUSE HE HAS NO ACCESS TO MEDICATION. MEDICATION COMPLIANT WITHOUT DIFFICULTY. MEDICATION EDUCATION PROVIDED AND VERBALIZED UNDERSTANDING. BEHAVIORS MONITORED WITH Q15 MINUTE SAFETY CHECKS. PT VERBALLY CONTRACTED FOR SAFETY. FALL PRECAUTION MAINTAINED. SEE [facility] FLOWSHEET FOR SPECIFIC MONITORING. NO C/O PAIN. PT TOOK A SHOWER TODAY AND SAT IN DINNINGROOM FOR A SHORT WHILE. ATTENDED AFTERNOON GROUP.
--- NOTE | 2019-09-27 15:56 | NUR ---
PM GROUP/BEADING/MUSIC PT ATTENDED AND PARTICIPATED IN ALL GROUP ACTIVITY. PT EXPRESSES NO S.I. OR AGITATION AT THIS TIME.PT WILL CONTINUE TO ATTEND AND PARTICIPATE IN FUTURE GROUP SESSIONS.
[2019-09-27 19:50] VITALS: BP 108/60
--- NOTE | 2019-09-27 21:43 | NUR ---
Patient alert and oriented x4. Mood depressed. Patient isolative to self while in diningroom. Patient admits to having suicidal thoughts and plan to jump off bridge. Encouraged patient to contract for safety. Patient denies any hallucinations or delusions. No s/s of any responding to internal stimuli noted at this time. Patient compliant with HS medications without any difficulty. Provided 1:1 for emotional support and therapeutic communication. Plan to continue to encourage medication compliance and continue to encourage adryan for safety. Also continue to provide emotional support and therapeutic communication. Q 15 minute safety checks continued and maintained. Continue to monitor behaviors and moods. See [facility] flowsheet for further documentation.
--- NOTE | 2019-09-28 06:01 | NUR ---
Patient slept approx. 3 hours throughout shift. Q 15 minute safety checks continued and maintained.
[2019-09-28 07:30] VITALS: BP 113/68
--- NOTE | 2019-09-28 07:43 | NUR ---
Patient resting quietly with no c/o discomfort. Respirations easy and regular. Vital signs stable. No overt distress. GIVENS,CARMELO
--- NOTE | 2019-09-28 12:03 | NUR ---
AM GROUP/MUSIC/EXERCISE/GAMES PT ATTENDED AND PARTICIPATED IN ALL [facility] ACTIVITY'S. PT PLEASANT AND ON TASK WITH NO AGITATION OR S.I. EXPRESSED AT THIS TIME. PT WILL CONTINUE TO ATTEND AND PARTICIPATE IN FUTURE GROUP SESSIONS.
[2019-09-28 19:52] VITALS: BP 105/61
--- NOTE | 2019-09-28 21:23 | NUR ---
Patient alert and oriented x4. Mood depressed. Patient isolative to self while in diningroom. Patient denies any siucidal thoughts at this time. Encouraged patient to contract for safety. Patient denies any hallucinations or delusions. No s/s of any responding to internal stimuli noted at this time. Patient compliant with HS medications without any difficulty. Provided 1:1 for emotional support and therapeutic communication. Plan to continue to encourage medication compliance and continue to encourage adryan for safety. Also continue to provide emotional support and therapeutic communication and continue to encourage more interaction with staff and other patients. Q 15 minute safety checks continued and maintained. Continue to monitor behaviors and moods. See [facility] flowsheet for further documentation.
--- NOTE | 2019-09-29 00:11 | NUR ---
24 HR chart check completed.
--- NOTE | 2019-09-29 05:44 | NUR ---
Patient slept approx. 3 hours throughout shift. Q 15 minute safety checks continued throughout shift.
--- NOTE | 2019-09-29 07:10 | NUR ---
PHYSICAL THERAPY Patient seen this am for therapy visit and was sitting up on EOB following OT financial services assistant visit. Patient identified by name / and reports 07/17 B LE pain / edema, which remains pretty constant throughout the day. OT financial services assistant was peresent for observationn only during OPEN HEARTH LABORER treatment as patient transfers sit to stand with Supervision. Patient ambulates by pushing w/c for support, Supervision, demonstrating "slouched" upright posture, decreased stride and needed v/c to slow down a bit to improve overall gait velocity safety, 65'x 1. Patient also fatigues quickly and returned to w/c demonstrating good safety awareness by locking w/c brakes prior to sitting down. Patient remained in activity room under [facility] staff Supervision. Will continue per POC as tolerated, total treatment time 14 minutes. Nash Arango PTA
--- NOTE | 2019-09-29 07:44 | NUR ---
Pt was seen for 15 minutes with OT starting with supine to sit at edge of bed without difficulty. Set up only for UB dressing and supervision when pulling pants over hips due to a hx of falls. Fxl mobility to dining room for breakfast with supervision due to fall risks. Continue with OT POC. Florence MURPHY/Juan
[2019-09-29 07:51] VITALS: BP 139/77
--- NOTE | 2019-09-29 08:15 | NUR ---
Treatment Plan meeting was held this a.m. with NERY Trejo, RN, AT, ANA-S and Miter Cutter in attendance. Plan for discharge when Psychiatrically stable. Pt. will return home with .
--- NOTE | 2019-09-29 09:44 | NUR ---
ON UNIT TO SEE PT AT THIS TIME.
--- NOTE | 2019-09-29 10:04 | NUR ---
Met with pt briefly this AM and confirmed that the family meeting will be held at 11:00 today. Informed pt that PT has recommended SNF for pt.
--- NOTE | 2019-09-29 10:05 | NUR ---
Submitted PASRR for possible discharge needs of pt.
--- NOTE | 2019-09-29 11:42 | NUR ---
AM GROUP/EXERCISE PT DID NOT ATTEND MORNING GROUP THERAPY. PT WAS IN BED RESTING. PT WAS THEN IN A MEETING WITH JAKE.
--- NOTE | 2019-09-29 11:45 | NUR ---
P- DEPRESSED MOOD, PERIODS OF TEARFULNESS, POOR SLEEP LAST NIGHT. FLEETING SUICIDAL THOUGHTS. I- ORIENTATION, MOOD AND BEHAVIOR ASSESSED. ASSESSED PT FOR SI/HI, INTENT OR PLAN. ASSESSED PT FOR S/S HALLUCINATIONS, PARANOIA AND/OR DELUSIONS. MEDICATIONS ADMINSITERED PER PHYSICIAN'S ORDERS. ASSISTANCE WITH ADL CARE PROVIDED NEEDED. ENCOURAGED PT TO ATTEND AND PARTICIPATE IN [facility] GROUPS AND ACTIVITIES. 1:1 AND EMOTIONAL SUPPORT PROVIDED. R- PT IS ALERT AND ORIENTED X4. MEMORY INTACT. RESPS EASY AND EVEN ON ROOM AIR. MOOD APPEARS DEPRESSED WITH SAD AFFECT. PT TEARFUL AT TIMES. PT REPORTS POOR SLEEP LAST NIGHT, STATES HE FEELS HE SLEPT POORLY D/T ANXIETY REGARDING FAMILY MEETING TAKING PLACE TODAY WITH . PT REPORTS MOOD "FEELING A LITTLE DOWN, BUT I'M NOT GOING TO DO ANY DAMAGE TO MYSELF OR ANYONE ELSE". PT REPORTS HE CONTINUES TO HAVE FLEETING SUICIDAL THOUGHTS BUT STATES "THINKING ABOUT IT AND PLANNING TO ACT ON IT ARE TWO DIFFERENT THINGS. I'M JUST THINKING ABOUT IT SOMETIMES, I'M NOT GOING TO ACT ON IT". DOREEN SUPERINTENDENT PIPELINES AWARE AND STATES OK TO CONTINUE ROUTINE Q15 MIN SAFETY CHECKS. PT DENIES HOMICIDAL IDEATIONS. PT DENIES HALLUCINATIONS, NO RESPONSE TO INTERNAL STIMULI NOTED. NO PARANOIA OR DELUSIONS NOTED. PT IS MED COMPLIANT WITHOUT DIFFICULTY. NO DISTRESS NOTED. P- PLAN TO CONTINUE CURRENT TREATMENT, CONTINUE TO MONITOR MOOD AND BEHAVIORS, PROVIDE APPROPRIATE REORIENTATION, REDIRECTION AND 1:1 NEEDED. CONTINUE TO ENCOURAGE MEDICATION COMPLIANCE WELL GROUP ATTENDANCE AND PARTICIPATION.
--- NOTE | 2019-09-29 13:28 | NUR ---
Family meeting held with pt, his Lissette, and this comic writer. Marital counseling was also provided by this comic writer. Both pt and Lissette shared about their individual frustrations within their marriage. Assisted them in recognizing things that they can change about themselves which will ultimately improve their marriage. Discussed pt's discharge plan. Lissette is apprehensive about pt returning home. Discussed other discharge options. Pt stated that he would just go to a homeless alf. Reminded pt that PT/OT is recommending SNF. Pt stated that he doesn't want that now. Discussed options further. Tentative discharge plan is that pt will return home.
--- NOTE | 2019-09-29 15:32 | NUR ---
Shift chart check completed.
--- NOTE | 2019-09-29 15:39 | NUR ---
PM GROUP/MOVIE AND MANICURES PT WAS PRESENT FOR AFTERNOON GROUP THERAPY AND PARTICIPATED BY WATCHING THE MOVIE. PT WAS BEING VERY RUDE TO AN ELDERLY PEER BY TELLING HIM, "SHUT UP. I'M TRYING TO WATCH THE MOVIE. YOU TALK TOO MUCH" PT EXPRESSED NO SUICIDAL IDEATIONS WHILE IN GROUP
[2019-09-29 19:52] VITALS: BP 121/76
--- NOTE | 2019-09-29 21:15 | NUR ---
PT ALERT X4, COOPERATIVE WITH MEDICATION, IN LOUNGE WATCHING T.V WITH PEERS, NO COMPLAINT OF PAIN OR DISCOMFORT. PT STATED IT WAS AN "EXCEPTIONAL DAY" TODAY DUE TO HIS CONVERSATION WITH HIS . PT STATED THAT HE FELT COMFORTABLE WITH TERRA COTTA ROOFER HELPER BEING IN THE ROOM TO BE ABLE TO TALK FREELY WITH SPOUSE. PT STATED HE IS WILLING TO CONTINUE WITH COUSELING AFTER DISCHARGE. PT REPORTS NO SI/HI OR DELUSIONS, PT STATES HE DIDN'T EVEN HAVE SI THOUGHTS WHEN ALONE IN HIS ROOM EARLIER WHICH WAS A NEW FEELING PER PT. PT STATES HE WILL CONTINUE WITH MEDICATION AND WORKING ON COMMUNICATIONS WHEN HE RETURNS HOME. PT STATED HE WON'T GO TO A [facility] DUE TO HIS WILL TAKE HIM BACK AT THIS TIME. CONTINUE TO MONITOR 15 MIN CHECKS, CHANGE IN SI THOUGHT PROCESS, EDUCATE ON MEDICATIONS. PT CONTINUES TO USE WHEEL CHAIR FOR MOBILITY
--- NOTE | 2019-09-30 04:02 | NUR ---
PT UP AT THIS TIME, STATED HE HAD BEEN IN BED AWAKE DUE TO DISCOMFORT AND PAIN IN BACK AND LEGS. PT INFORMED HE NEEDED TO CONINUE TO TRY TO STAY IN BED WITH FEET ELEVATED DUE TO EDEMA FOR A LITTLE BIT LONGER, OFFERED TYLENOL OR ULTRAM FOR PAIN IN WHICH PT STATED " THOSE DON'T WORK, JUST GET ME SOME DAMN VICODIN" PT INFORMED IT WAS EITHER TYLENOL OR ULTRAM AND THOSE WERE THE OPTIONS, PT STATED HE WOULD TRY ULTRAM BECAUSE HIS PAIN LEVEL WAS 12 ON 1-10 SCALE. PT REMAINS FLAT AFFECT AND CONTINUED TO PROPEL SELF IN HALLWAY.
--- NOTE | 2019-09-30 05:34 | NUR ---
PT UP AT THIS TIME IN [facility], STATED THAT ULTRAM DID NOTHING FOR HIM AT THIS TIME, PT HAS NO FACIAL GRIMACING, NOTED TO BE PROPELLING WITHOUT DIFFICULTY, PT IS USING FEET WNL FOR PT. CONTINUE TO MONITOR AT THIS TIME.
--- NOTE | 2019-09-30 05:52 | NUR ---
PT SLEPT 4 HOURS,
--- NOTE | 2019-09-30 05:53 | NUR ---
24 HR chart check completed.
--- NOTE | 2019-09-30 07:00 | NUR ---
PHYSICAL THERAPY Patient seen this am for therapy visit and was sitting in activity room w/c watching tv upon therapist arrival. Patient identified by name / and presented with increased B LE edema. Patient transfers sit to stand with Supervision, then ambulates by pushing w/c, Supervision, demonstrating Poor upright posture, decreased stride secondary to B knee flexion contractures, 40'x 1 and increased quick onset of fatigue. Patient needed v/c to lock w/c brakes prior to sitting down and returned to activity room awaiting breakfast under [facility] staff Supervision. Will continue per POC as tolerated, total treatment time 14 minutes. Nash Arango, SALES SUPERVISOR
[2019-09-30 07:47] VITALS: BP 110/62
--- NOTE | 2019-09-30 08:15 | NUR ---
Treatment Plan meeting was held with Maya GABRIEL, RN, AT, FIRE TOWER KEEPER-S and Unit Secretary in attendance. Plan for discharge today. Pt. to return home with .
[2019-09-30] MEDS ORDERED: Vitamin D PO (08:44)
[2019-09-30] MEDS ORDERED: DIVALPROEX SOD500 MG PO (08:44)
[2019-09-30] MEDS ORDERED: LATU80TA PO (08:44)
[2019-09-30] MEDS ORDERED: MIRTAZAPINE30 M2 PO (08:44)
[2019-09-30] MEDS ORDERED: LORAZEPAM0.5 MG PO (08:46)
--- NOTE | 2019-09-30 09:15 | NUR ---
PER INSURANCE CASE MUST GO TO PEER REVIEW. DR MYLES NUMBER PROVIDED TO CALL.
--- NOTE | 2019-09-30 09:45 | NUR ---
Pt was seen 15 minutes in OT before breakfast beginning with grooming standing at sink with supervision due to a hx of falls. Fxl mobility from bedroom to dining room area required supervision due to safety issues. Attempted a second visit later in am but patient was sleeping. Continue with OT POC. Florence MURPHY/Juan
--- NOTE | 2019-09-30 09:47 | NUR ---
Call placed to hospitalist cell number [address] Carson, spoke to Dr. Musa, made aware of discharge for today.
--- NOTE | 2019-09-30 10:32 | NUR ---
AND ON UNIT TO SEE PT AT THIS TIME.
--- NOTE | 2019-09-30 11:42 | NUR ---
AM GROUP/WATERCOLORS PT DID NOT ATTEND MORNING GROUP THERAPY. PT WAS READYING TO BE DISCHARGED FROM THE UNIT
--- NOTE | 2019-09-30 12:30 | NUR ---
NO ADVERSE MOODS OR BEHAVIORS THIS SHIFT. PT IS ALERT AND ORIENTED X4. MEMORY APPEARS TO BE INTACT. RESPS EASY AND EVEN ON ROOM AIR. MOOD APPEARS STABLE WITH APPROPRIATE AFFECT. PT STATES HE IS FEELING BETTER, PT STATES HE IS "READY TO GO HOME WITH HIS ". PT DENIES SI/HI, INTENT OR PLAN. PT DENIES HALLUCINATIONS, NO RESPONSE TO INTERNAL STIMULI NOTED. NO PARANOIA OR DELUSIONS NOTED. PT IS CALM AND COOPERATIVE. MEDICATION COMPLIANT WITHOUT DIFFICULTY. NO DISTRESS NOTED. PLAN FOR DISCHARGE TODAY, WILL ASSIST PT IN PREPARING FOR HOSPITAL DISCHARGE.
--- NOTE | 2019-09-30 13:08 | NUR ---
PT DISCHARGED AT THIS TIME VIA WHEELCHAIR ESCORT BY THIS RN AND MANAGER LOAN HOME WITH VIA PRIVATE VEHICLE. ALL DISCHARGE INSTRUCTIONS WERE REVIEWED WITH PT PRIOR TO DISCHARGE WITH PT'S STATED UNDERSTANDING OF ALL. ALL QUESTIONS ANSWERED. ALL PERSONAL BELONGINGS WERE SENT WITH THE PT INCLUDING LOCK BOX ITEMS (WALLET AND CELL PHONE). PT LEFT THE UNIT IN STABLE CONDITION AT 1308.
--- NOTE | 2019-09-30 14:43 | NUR ---
PHYSICAL THERAPY CO-SIGN I approve of the Physical Therapy notes written above Marsha Simms PT
--- NOTE | 2019-09-30 15:33 | NUR ---
OCCUPATIONAL THERAPY CO-SIGN I approve of the Occupational Therapy notes written above. KERRY GUZMAN OTR/Juan
== END 2019-09-30 13:12 | disposition home or self-care (01) | DRG 885 ==
LOC: 3N 11:45
PROVIDERS: Counselor Professional; ADMIT Psychiatry & Neurology Psychiatry
DX: F25.0 Schizoaffective disorder, bipolar type (principal); R45.851 Suicidal ideations; I50.32 Chronic diastolic (congestive) heart failure; Z68.42 Body mass index [BMI] 45.0-49.9, adult; E11.69 Type 2 diabetes mellitus with other specified complication; E66.01 Morbid (severe) obesity due to excess calories; R45.850 Homicidal ideations; E78.5 Hyperlipidemia, unspecified; G25.81 Restless legs syndrome; M19.90 Unspecified osteoarthritis, unspecified site; E11.42 Type 2 diabetes mellitus with diabetic polyneuropathy; I89.0 Lymphedema, not elsewhere classified; F43.21 Adjustment disorder with depressed mood; I48.91 Unspecified atrial fibrillation; M54.5 Low back pain; G89.29 Other chronic pain; D64.9 Anemia, unspecified; I11.0 Hypertensive heart disease with heart failure; Z88.1 Allergy status to other antibiotic agents; Z88.0 Allergy status to penicillin; Z91.018 Allergy to other foods; Z79.899 Other long term (current) drug therapy; Z86.718 Personal history of other venous thrombosis and embolism; Z90.49 Acquired absence of other specified parts of digestive tract; Z89.429 Acquired absence of other toe(s), unspecified side; Z83.49 Family history of other endocrine, nutritional and metabolic diseases

== ENCOUNTER 2019-12-02 11:43 | Emergency (ER) | payer OTHER ==
[~2019-12-02] VITALS: Ht 177.8 cm; Wt 152.4 kg
[~2019-12-02 11:43] MED LIST changes: +DIVALPROEX SOD500 MG PO; +LATU80TA PO; +LORAZEPAM0.5 MG PO; +MIRTAZAPINE30 M2 PO; +Vitamin D PO
[2019-12-02 12:21] LABS: BASO % 0.2 % (0.0-1.0); EOS # 0.1 10*3/uL (0.0-0.4); EOS % 0.6 % (1.0-4.0); HEMATOCRIT 41.9 % (42.0-52.0); HEMOGLOBIN 13.6 g/dl (14.0-18.0); LYMPH # 1.3 10*3/uL (1.3-4.4); LYMPH % 15.3 % (27.0-41.0); MEAN CELL VOLUME 93.7 fl (80.0-94.0); MEAN CORPUSCULAR HGB 30.4 pg (27.0-31.0); MEAN CORPUSCULAR HGB CONC 32.5 g/dl (33.0-37.0); MEAN PLATELET VOLUME 10.2 fl (9.6-12.3); MONO # 0.8 10*3/uL (0.1-1.0); MONO % 9.1 % (3.0-9.0); NEUT # 6.4 10*3/uL (2.3-7.9); NEUT % 74.5 % (47.0-73.0); PLATELET COUNT AUTOMATED 256 10*3/uL (130-400); RED BLOOD COUNT 4.47 10*6/uL (4.50-5.90); RED CELL DISTRI WIDTH 12.9 % (0-14.5); WHITE BLOOD COUNT 8.7 10*3/uL (4.8-10.8)
[2019-12-02 12:33] LABS: BUN 29 mg/dl (7-24); CHLORIDE 108 mmol/L (98-107); CREATININE 1.35 mg/dL (0.70-1.30); POTASSIUM 3.8 mmol/L (3.5-5.1); SODIUM 142 mmol/L (136-145)
[2019-12-03] MEDS ORDERED: XALATAN 0.005%2.5 ML OU (09:40)
[2019-12-03] MEDS ORDERED: DEPAKOTE500 MG PO ×2 (09:42)
[2019-12-03] MEDS ORDERED: REMERON30 M1 PO (09:43)
[2019-12-03] MEDS ORDERED: LORAZEPAM0.5 MG PO (09:45)
== END 2019-12-02 15:10 | disposition home or self-care (01) ==
LOC: ED 11:43
PROVIDERS: Family Medicine
DX: T14.90XA Injury, unspecified, initial encounter (principal); I11.0 Hypertensive heart disease with heart failure; I50.30 Unspecified diastolic (congestive) heart failure; E78.00 Pure hypercholesterolemia, unspecified; I48.91 Unspecified atrial fibrillation; E11.40 Type 2 diabetes mellitus with diabetic neuropathy, unspecified; E66.01 Morbid (severe) obesity due to excess calories; M19.90 Unspecified osteoarthritis, unspecified site; Z86.718 Personal history of other venous thrombosis and embolism; Z88.0 Allergy status to penicillin; Z88.8 Allergy status to other drugs, medicaments and biological substances; Z79.899 Other long term (current) drug therapy; Z90.49 Acquired absence of other specified parts of digestive tract; Z89.429 Acquired absence of other toe(s), unspecified side; Y04.0XXA Assault by unarmed brawl or fight, initial encounter; Y93.89 Activity, other specified; Y92.89 Other specified places as the place of occurrence of the external cause; Y99.8 Other external cause status

== ENCOUNTER 2019-12-02 19:58 | Inpatient (IN) | payer OTHER ==
[~2019-12-02] VITALS: Ht 187.9 cm; Wt 136.2 kg
[2019-12-02 20:03] VITALS: BP 116/81
[2019-12-02 23:10] LABS: ACETAMINOPHEN (TYLENOL) < 5.0 ug/ml (10-30); ETHYL ALCOHOL < 3.0 mg/dl (<3)
--- NOTE | 2019-12-03 00:53 | NUR ---
PT SLEEPING AROUSES EASILY . EXPLAINED TO THE PATIENT HE IS GOING TO [facility] THE PATIENT IS OK WITH THIS. VOICES NO COMPLAINTS AT THIS TIME. ANA WILLIAM RN.
[2019-12-03 00:54] LABS: URINE AMPHETAMINES < 1000 (1000ng/ml); URINE BARBITURATES < 200 (200ng/ml); URINE BENZODIAZEPINES < 200 (200ng/ml); URINE CANNABINOIDS (THC) < 50 (50ng/ml); URINE COCAINE < 300 (300ng/ml); URINE METHADONE < 300 (300ng/ml); URINE OPIATES < 300 (300ng/ml)
[2019-12-03 00:58] LABS: URINE PHENCYCLIDINE < 25 (25ng/ml)
[2019-12-03 01:15] LABS: BILIRUBIN NEGATIVE (NEGATIVE); BLOOD 3+ (NEGATIVE); CLARITY SL CLOUDY (CLEAR); COLOR YELLOW (YELLOW); GLUCOSE NEGATIVE (NEGATIVE); KETONE 2+ (NEGATIVE); LEUKO ESTERASE 2+ (NEGATIVE); NITRITE NEGATIVE (NEGATIVE); PH 6.5 (5.0-9.0); UROBILINOGEN 0.2 E.U./dl (0.2-1.0)
[2019-12-03 01:20] LABS: BACTERIA 1+; RBC TNTC rbc/hpf (0-2); WBC TNTC wbc/hpf (0-5)
[2019-12-03 03:09] VITALS: BP 105/56
[2019-12-03 03:17] VITALS: BP 105/56
--- NOTE | 2019-12-03 03:26 | NUR ---
LISAOLLIE COLEMAN a 59 year old M admitted via wheel chair from the EMERGENCY ROOM as a voluntary admission. Arrived on unit at 0300AM. ALLERGIES: PCN, MINOCYCLINE AND MEGAN FLAVORING. Vital signs are: [phone]/56. The client signed the following forms with stated understanding: Authorization For The Release of Medical Information, Clothing List, Consent to Voluntary Admission and Hospitalization, Consent and Release Forms/Receipt of Rights, Acknowledgement of Advance Directive Information, Behavioral Health Consent Form, and Informed Consent of Medications. Admitted under the services of Dr. SHAMEKA DESAI,[facility]. A search was conducted and hazardous articles were removed. Client was oriented to the unit. declined to do personal crisis prevention plan at this time. JESSICA CRISTINA
--- NOTE | 2019-12-03 03:50 | NUR ---
DR SHERRY DE DIOS ON UNIT TO SEE PT FOR MEDICAL CONSULT.
--- NOTE | 2019-12-03 04:01 | NUR ---
OLLIE GONZALEZ [id number] Please refer to the physician's history and physical for past medical history, comorbid conditions, and allergies. Diagnosis: MAJOR DEPRESSION RECURRENT Claudio Score: , WOUND DESCRIPTIONS: Wound Number: 1 Location of the wound: left great toe Type of wound: traumatic Thickness: Partial Size: 1.5cm x 2.0cm x <0.1cm Tunneling: none Undermining: none Sinus Tract: none Presence of Exudate: Serosanguineous Amount: none Color: Brown, red Odor: None Periwound Skin Appearance: Normal Wound edges: approximated Pain (associated with wound): none at time of assessment How does patient state this happened? pt stated that he hit his toe off of something this evening Wound Number: 2 Location of the wound: left lateral foot Type of wound: unstageable Thickness: Full Size: 3.6cm x 4.0cm x <0.1cm Tunneling: none Undermining: none Sinus Tract: none Presence of Exudate: none Amount: None Color: Yellow Odor: Foul Periwound Skin Appearance: Normal Wound edges: approximated Pain (associated with wound): none at time of assessment How does patient state this happened? pt stated he just happened to notice this area today Wound Number: 3 Location of the wound: left 2nd toe lateral aspect Thickness: Partial Size: 0.5cm x 0.3cm x <0.1cm Tunneling: none Undermining: none Sinus Tract: none Presence of Exudate: none Amount: None Color: Red Odor: None Periwound Skin Appearance: Normal Wound edges: approximated Pain (associated with wound): none at time of assessment How does patient state this happened? pt unsure how this happened Wound Number: 4 Location of the wound: left 3rd toe Thickness: Partial Size: 0.5cm x 0.3cm x <0.1cm Tunneling: none Undermining: none Sinus Tract: none Presence of Exudate: none Amount: None Color: Red Odor: None Periwound Skin Appearance: Normal Wound edges: approximated Pain (associated with wound): none at time of assessment How does patient state this happened? pt unable to state how this happened Wound Number: 5 Location of the wound: left 4th toe Thickness: Partial Size: 0.5cm x 0.2cm x <0.1cm Tunneling: none Undermining: none Sinus Tract: none Presence of Exudate: none Amount: None Color: Red Odor: None Periwound Skin Appearance: Normal Wound edges: approximated Pain (associated with wound): none at time of assessment How does patient state this happened? pt unable to state how this happened Abdominal folds and periarea red satelitte areas noted at time of assessment. Musty odor noted at time of assessment. Surface the patient is resting on: Proform SKIN PREVENTION RECOMMENDATION: 1. Pressure redistribution support surface as appropriate 2. Elevate heels 3. Remove boots/TEDS every shift and reapply 4. Head of bed 30 degrees as tolerated 5. Assess nutrition and hydration 6. Manage moisture 7. Avoid the use of containment devices while in bed 8. Use absorptive products on surfaces limit layers of linens on bed 9. Turn and reposition every 1-2 hours in bed and every 1 hour in chair as tolerated 10. Weight shifts every 15 minutes while up in chair 11. Offloading with pillows or device to keep heels elevated off bed 12. Monitor skin at least every shift 13. Inspect under medical devices twice a day WOUND TREATMENT RECOMMENDATIONS: Imaging studies are pending at time of assessment of left foot. Venous and arterial studies to bilateral lower extremities due to wounds. Consult podiatry for areas to left foot and left toes Cleanse left great toe, left 2nd toe lateral aspect, left 3rd toe, left 4th toe with nss and apply bactroban tid and cover with dsd Cleanse left lateral aspect of foot with nss and apply sureprep around the wound therahoney to wound bed and cover with dsd every 2 days and prn for soiling. Cleanse abdominal fold and brittani area with soap and water and apply nystatin powder every 8 hours. Heel raiser pro boots to bilateral feet while in bed.
--- NOTE | 2019-12-03 04:05 | NUR ---
to xray for stat left foot exam
--- NOTE | 2019-12-03 04:25 | NUR ---
IV started left hand with #20 protective cath after attempts. Site prepped with Chloroprep. Sterile dressing applied. Patient tolerated procedure well. JESSICA CRISTINA
--- NOTE | 2019-12-03 06:45 | NUR ---
AM BEDSIDE GLUCOSE 87
[2019-12-03 08:00] VITALS: BP 114/63
--- NOTE | 2019-12-03 08:00 | NUR ---
TREATMENT PLAN MEETING WAS HELD WITH DR. MYLES, NERY DOVE, RN, AT, PRESETTER OPERATOR-S AND BALANCE BRIDGE ASSEMBLER. PLAN FOR DISCHARGE NEXT WEEK. DR. MYLES ASKED FOR PASRR TO BE DONE ON PATIENT.
--- NOTE | 2019-12-03 08:50 | NUR ---
OLLIE GONZALEZ [id number] Please refer to the physician's history and physical for past medical history, comorbid conditions, and allergies. Diagnosis: MAJOR DEPRESSION RECURRENT Claudio Score: 17,AT RISK WOUND DESCRIPTIONS: Wound Number: 1 Location of the wound: left great toe Type of wound: traumatic Thickness: Partial Size: 1.5cm x 2.0cm x <0.1cm Tunneling: none Undermining: none Sinus Tract: none Presence of Exudate: Serosanguineous Amount: none Color: Brown, red Odor: None Periwound Skin Appearance: Normal Wound edges: approximated Pain (associated with wound): none at time of assessment How does patient state this happened? pt stated that he hit his toe off of something this evening Wound Number: 2 Location of the wound: left lateral foot Type of wound: unstageable Thickness: Full Size: 3.6cm x 4.0cm x <0.1cm Tunneling: none Undermining: none Sinus Tract: none Presence of Exudate: none Amount: None Color: Yellow, red Odor: Foul Periwound Skin Appearance: Normal Wound edges: approximated Pain (associated with wound): none at time of assessment How does patient state this happened? pt stated he just happened to notice this area today Wound Number: 3 Location of the wound: left 2nd toe lateral aspect Thickness: Partial Size: 0.5cm x 0.3cm x <0.1cm Tunneling: none Undermining: none Sinus Tract: none Presence of Exudate: none Amount: None Color: Red Odor: None Periwound Skin Appearance: Normal Wound edges: approximated Pain (associated with wound): none at time of assessment How does patient state this happened? pt unsure how this happened Wound Number: 4 Location of the wound: left 3rd toe Thickness: Partial Size: 0.5cm x 0.3cm x <0.1cm Tunneling: none Undermining: none Sinus Tract: none Presence of Exudate: none Amount: None Color: Red Odor: None Periwound Skin Appearance: Normal Wound edges: approximated Pain (associated with wound): none at time of assessment How does patient state this happened? pt unable to state how this happened Wound Number: 5 Location of the wound: left 4th toe Thickness: Partial Size: 0.5cm x 0.2cm x <0.1cm Tunneling: none Undermining: none Sinus Tract: none Presence of Exudate: none Amount: None Color: Red Odor: None Periwound Skin Appearance: Normal Wound edges: approximated Pain (associated with wound): none at time of assessment How does patient state this happened? pt unable to state how this happened Abdominal folds and periarea red satelitte areas noted at time of assessment. Musty odor noted at time of assessment. Fissures noted to bilateral feet at time of assessment. No drainage noted at this time. Surface the patient is resting on: Proform SKIN PREVENTION RECOMMENDATION: 1. Pressure redistribution support surface as appropriate 2. Elevate heels 3. Remove boots/TEDS every shift and reapply 4. Head of bed 30 degrees as tolerated 5. Assess nutrition and hydration 6. Manage moisture 7. Avoid the use of containment devices while in bed 8. Use absorptive products on surfaces limit layers of linens on bed 9. Turn and reposition every 1-2 hours in bed and every 1 hour in chair as tolerated 10. Weight shifts every 15 minutes while up in chair 11. Offloading with pillows or device to keep heels elevated off bed 12. Monitor skin at least every shift 13. Inspect under medical devices twice a day WOUND TREATMENT RECOMMENDATIONS: Imaging studies are pending at time of assessment of left foot. Venous and arterial studies to bilateral lower extremities due to wounds. Consult podiatry for areas to left foot and left toes Cleanse left great toe, left 2nd toe lateral aspect, left 3rd toe, left 4th toe with nss and apply bactroban tid and cover with dsd Cleanse left lateral aspect of foot with nss and apply sureprep around the wound therahoney to wound bed and cover with dsd every 2 days and prn for soiling. Cleanse abdominal fold and brittani area with soap and water and apply nystatin powder every 8 hours. Heel raiser pro boots to bilateral feet while in bed.
--- NOTE | 2019-12-03 09:06 | NUR ---
DR SHAVER ON UNIT TO ASSESS PT, UPDATE PROVIDED.
--- NOTE | 2019-12-03 09:38 | NUR ---
DR MYLES ON UNIT TO ASSESS PT, ORDER RECEIVED TO DC 1:1 SITTER PER ER ORDERS.
[2019-12-03] MEDS ORDERED: XALATAN 0.005%2.5 ML OU (09:40)
[2019-12-03] MEDS ORDERED: DEPAKOTE500 MG PO ×2 (09:42)
[2019-12-03] MEDS ORDERED: REMERON30 M1 PO (09:43)
[2019-12-03] MEDS ORDERED: LORAZEPAM0.5 MG PO (09:45)
--- NOTE | 2019-12-03 09:52 | NUR ---
DR. POWERS FOR DR. TIAN TEAM MADE AWARE OF HOME MEDS NEEDING REVIEWED WELL THE PATIENT NEEDING WOUND CARE ORDERS.
--- NOTE | 2019-12-03 10:31 | NUR ---
Dr. Rivera notified of wound care recommendations.
--- NOTE | 2019-12-03 11:57 | NUR ---
AM GROUP PT WAS PRESENT FOR MORNING GROUP THERAPY AND PARTICIPATED IN HIS ASSESSMENT AND BY WATCHING TV. PT WAS QUIET AND FOCUSED AND EXPRESSED NO SUICIDAL IDEATIONS DURING ASSESSMENT OR GROUP.
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
--- NOTE | 2019-12-03 13:48 | NUR ---
Spoke to Mayte Barnhart from [facility] and gathered information for pt to consider. Pt must be totally independent with ADLs and IDLs, as well as be able to use [employer] for transportation. Medications are dispensed.
--- NOTE | 2019-12-03 14:19 | NUR ---
Nutritional Support Services Note: Pt is eating 100% of meals. He receives an 1800cal diet sec to DM. Wound noted to left foot. Night snack provided. Ht.6'2 Wt.300#. Staff to continue to encourage good intake of meals. Will follow if needed. No Nutrition intervention needed at this time. Carmen Waldrop Rdn Ld
--- NOTE | 2019-12-03 15:48 | NUR ---
PASRR SUBMITTED ONLINE IN HENS. REQUIRES FURTHER REVIEW FOR NURSING FACILITY PLACEMENT. FAXED SUPPORTING DOCUMENTATION TO [facility] . COPY PLACED IN PATIENT CHART UNDER DISCHARGE TAB.
--- NOTE | 2019-12-03 15:55 | NUR ---
PM GROUP PT ATTENDED AFTERNOON GROUP THERAPY AND PARTICIPATED BY WATCHING A MOVIE. PT WAS VERY POLITE AND FOCUSED ON THE MOVIE. PT EXPRESSED NO SUICIDAL IDEATIONS WHILE IN GROUP
--- NOTE | 2019-12-03 17:11 | NUR ---
SPOKE WITH DR POWERS AT [phone] RE: PT IV PER DR POWERS SHE WILL TAKE A LOOK AT THE ORDER.
[2019-12-03 19:50] VITALS: BP 109/62
--- NOTE | 2019-12-03 22:17 | NUR ---
Patient alert and oriented x4. Mood calm and cooperative with underlying irritability noted. Patient denies SI at this time. No signs of any hallucinations noted at this time. Patient compliant with HS medications without any difficulty. Provided therapeutic communication and emotional support. Plan to continue to encourage medication compliance. Also continue to provide therpeutic communication and emotional support when needed. Will continue to monitor moods/behaviors. Q 15 minute safety checks continued and maintained. See [facility] flowsheet for further documentation.
--- NOTE | 2019-12-04 00:36 | NUR ---
24 HR chart check completed.
--- NOTE | 2019-12-04 05:38 | NUR ---
Patient slept approx. 4.5 hours throughout shift. Q 15 minute safety checks continued and maintained.
[2019-12-04 06:55] LABS: BASO % 0.3 % (0.0-1.0); EOS # 0.2 10*3/uL (0.0-0.4); EOS % 2.8 % (1.0-4.0); HEMATOCRIT 40.3 % (42.0-52.0); HEMOGLOBIN 12.9 g/dl (14.0-18.0); LYMPH # 2.2 10*3/uL (1.3-4.4); LYMPH % 33.7 % (27.0-41.0); MEAN CELL VOLUME 94.8 fl (80.0-94.0); MEAN CORPUSCULAR HGB 30.4 pg (27.0-31.0); MEAN PLATELET VOLUME 10.1 fl (9.6-12.3); MONO # 0.8 10*3/uL (0.1-1.0); MONO % 11.6 % (3.0-9.0); NEUT # 3.3 10*3/uL (2.3-7.9); NEUT % 51.1 % (47.0-73.0); PLATELET COUNT AUTOMATED 236 10*3/uL (130-400); RED BLOOD COUNT 4.25 10*6/uL (4.50-5.90); RED CELL DISTRI WIDTH 13.1 % (0-14.5); WHITE BLOOD COUNT 6.5 10*3/uL (4.8-10.8)
[2019-12-04 07:27] LABS: ALBUMIN 2.5 gm/dl (3.1-4.5); ALKALINE PHOSPHATASE 57 U/L (45-117); BUN 22 mg/dl (7-24); CHLORIDE 111 mmol/L (98-107); CHOLESTEROL 123 mg/dL (<200); CREATININE 0.99 mg/dL (0.70-1.30); HDL CHOLESTEROL 37 mg/dl (40-60); LDL CHOLESTEROL 62 mg/dL (9-159); SGOT/AST 13 IU/L (3-35); SGPT/ALT 16 U/L (12-78); SODIUM 143 mmol/L (136-145); TOTAL PROTEIN 6.1 gm/dL (6.4-8.2); TRIGLYCERIDES 121 mg/dl (<150); VLDL CHOLESTEROL 24 mg/dL (6-40)
--- NOTE | 2019-12-04 07:54 | NUR ---
SPOKE WITH DR POWERS AND ADVISED HER THAT PTS LABS ARE IN FOR REVIEW. DR POWERS RETURNED CALL AND ADVISED THAT WE CAN STOP THE IV FLUIDS. NO FURTHER ORDERS AT THIS TIME.
[2019-12-04 08:00] VITALS: BP 110/56
--- NOTE | 2019-12-04 09:00 | NUR ---
TREATMENT PLAN MEETING WAS HELD WITH DR. MYLES, RN, AT, LEGISLATIVE CORRESPONDENT-S AND KNOWLEDGE ANALYST. PLAN FOR DISCHARGE NEXT WEEK. PASRR SUBMITTED FOR POSSIBLE SNF DUE TO WOUNDS AND INABILITY TO CARE FOR AT HOME.
--- NOTE | 2019-12-04 10:00 | NUR ---
PHYSICAL THERAPY Called [facility] unit pt liseth at this time for evaluation as he is sleeping will follow Marsha Simms PT
--- NOTE | 2019-12-04 10:00 | NUR ---
Dr. Rivera notified of wound care recommendations.
--- NOTE | 2019-12-04 10:10 | NUR ---
Patient not available for occupational therapy as he is in bed per staff when OTR phoned for evaluation. OTR will attempt at another date. Cal Colon OTr/saumya
--- NOTE | 2019-12-04 11:50 | NUR ---
Faxed admission clinical for inpatient mental health prior authorization. Awaiting response.
--- NOTE | 2019-12-04 12:01 | NUR ---
AM GROUP PT ATTENDED MORNING GROUP THERAPY AND PARTICIPATED FOR A SHORT TIME. PT ASKED FOR NURSE AND TOLD HER THAT HIS ANXIETY WAS HIGH. NURSE OFFERED TO TAKE HIM TO THE QUIET ROOM BUT PT DECLINED. PT EXHBITED NO SIGNS OF ANXIETY OTHER THAN HIS STATEMENT. PT EXPRESSED NO SUICIDAL IDEATIONS WHILE IN GROUP.
--- NOTE | 2019-12-04 12:44 | NUR ---
When meeting with this com writer, pt stated that he wanted to contact an deputy commonwealth's attorney to discuss his and asked for a recommendation. Explained to pt that this com writer could research area attorneys who specialize in family law but that this com writer would not make a recommendation. After leaving pt, did internet search for local family law attorneys and provided pt with a list. Pt asked that this com writer keep the list until pt could make the call. Pt did not voice any suicidal ideations during interaction with this com writer.
--- NOTE | 2019-12-04 14:30 | NUR ---
Physical Therapy evaluation completed with full evaluation to follow. Recommend physical therapy per plan of care and SNF upon discharge. Thank you for this referral. Marsha Simms PT
--- NOTE | 2019-12-04 16:12 | NUR ---
Occupational Therapy evaluation completed on 3 with full evaluation to follow. Recommend occupational therapy per plan of care and SNF upon discharge. Thank you for this referral. Olimpia Colon OTR/l
[2019-12-04 20:00] VITALS: BP 116/62
--- NOTE | 2019-12-04 21:14 | NUR ---
P: SUICIDAL THOUGHT PROCESS, COMPLAINT OF ANXIETY ATTACKS WITHOUT OUTWARD SYMPTOMS I: TALK WITH PT IN REFERENCE TO HISTORY OF HIS PANIC ATTACKS, TRIGGERS, FEELINGS. DISCUSSED CURRENT THOUGHT PROCESS WITH COPING MECHANISMS TO COMPLETE. R: PT STATED THAT HE IS ANXIOUS TO BE LEFT ALONE AND THAT BEING IN THE COMMON AREA KEEPS HIM CALM. STATED HIS ANXIETY LEVEL WAS A 9 OUT OF 10. PT STATED THAT HIS BODY SHAKES WHEN HE IS ANXIOUS AND HE SOMETIMES CRIES. NO PHYSICAL SYMPTOMS NOTED. PT MAKING EYECONTACT, AND WHEN STAFF LEFT ROOM HE CONTINUED TO WATCH T.V AND LAUGH APPROPRIATELY AT THIS TIME. PT ALSO STATED HE HAD NO THOUGHTS TO HARM HIMSELF AT THIS TIME. AND THAT HE FELT THAT WAY DUE TO HIS KICKING HIME OUT. PT ALSO NOTED THAT HE IS ANXIOUS AT HOME BECAUSE ANYTIME SOMETHING IS WRONG HIS THREATENS TO KICK HIM OUT OF THE HOUSE. P: CONTINUE TO MONITOR FOR SI HI OR DELUSIONS. ENCOURAGE NON PHARMACOLOGICAL COPING TECHNIQUES SUCH A DEEP BREATHING. MONITOR 15 MIN CHECKS PER PROTOCOL PT ALERT AND ORIENTED X4 WITH MINIMAL AMBULATION PER PT, HE IS USING A WHEEL CHAIR FOR LONG DISTANCES, STATED THAT EVEN AT HOME HE WALKED MINIMAL FROM CHAIR TO BED AND BATHROOM. MEDICATION COMPLIANT AT THIS TIME WITHOUT DIFFICUTLY
--- NOTE | 2019-12-05 05:44 | NUR ---
SLEPT FROM 2315 AND CONTINUES RESTING AT THIS TIME
--- NOTE | 2019-12-05 05:46 | NUR ---
24 HR chart check completed.
[2019-12-05 08:00] VITALS: BP 113/66
--- NOTE | 2019-12-05 08:00 | NUR ---
TREATMENT PLAN MEETING WAS HELD WITH NERY DOVE RN, AT AND [facility]. PLAN FOR DISCHARGE NEXT WEEK. PT. REQUIRES SNF PLACEMENT FOR WOUND CARE, PT/OT.
--- NOTE | 2019-12-05 08:00 | NUR ---
Patient eating breakfast in dining room with peers. Respirations easy and regular. Vital signs stable. No overt distress. YOLIS LY PHMNP-BC on unit to see pt at this time. Update given.
--- NOTE | 2019-12-05 08:15 | NUR ---
PHYSICAL THERAPY Patient seen this am for therapy visit and was sitting up in activity room w/c following breakfast upon therapist arrival. Patient identified by name / and presented with L foot gauze wrap secondary to several pressure sores. OT personal care assistant was present for observation only this session as patient instructed on seated B LE therex. Patient performed seated ex, all planes, x15 reps each to increase LE strength without c/o. Patient remained in his w/c within activity room under [facility] staff Supervision and will continue per POC as tolerated, total treatment time 14 minutes. Nash Arango, GEOLOGICAL TECHNICIAN
--- NOTE | 2019-12-05 08:45 | NUR ---
OT NOTE Prior to coming to the floor spoke with charge nurse Lo and reported that therapy was coming to the floor to treat this pt. Pt was seen this A.M. 1:1 for 15 minute OT session with CLEARING DISTRIBUTION CLERK and nursing staff present for observation only. Pt identified by name and and had complaints of 10/10 L foot pain. Upon arrival pt was sitting upright in the w/c in the dining stockton. While seated pt doffed and donned socks with SBA while bringing one leg up over his knee. Pt was taken out into the hallway where he completed multiple sit to stand transfers from chair level with CGA and use of hand rail for UE support. Challenged pt's static standing tolerance needed for increased I in self care tasks and functional transfers. Pt was able to tolerate aprox 60-90 seconds before sitting due to fatigue. Challenged pt's dynamic standing balance while weight shifting, crossing midline, and reaching over all planes for increased I in self care tasks. Pt was able to maintain F standing balance. Pt was left sitting upright in the w/c in the dining stockton under [facility] staff supervision. Continue with rec D/ cplan to SNF. MACY North/Juan
--- NOTE | 2019-12-05 09:20 | NUR ---
PRN ULTRAM 50MG PO GIVEN AT THIS TIME PER PT REQUEST FOR C/O LEFT FOOT PAIN RATED LEVEL 10/10 ON PAIN SCALE. WILL MONITOR FOR EFFECTIVENESS.
--- NOTE | 2019-12-05 10:30 | NUR ---
PT REPORTS ULTRAM MODERATELY EFFECTIVE, STATES PAIN IS BETTER, RATES A 6/10 NOW.
--- NOTE | 2019-12-05 12:41 | NUR ---
AM GROUP PT WAS PRESENT FOR MORNING GROUP THERAPY AND INTITALLY DECLINED TO PARTICIPATE. PT BECAME INTERESTED IN THE PROJECT AND ASKED TO JOIN IN. PT EXPRESSED NO SUICIDAL IDEATIONS WHILE IN GROUP
--- NOTE | 2019-12-05 13:59 | NUR ---
IP 5 days lit per Barb at [place], NRD 12/07. Ref # [id number]
--- NOTE | 2019-12-05 14:20 | NUR ---
PHYSICAL THERAPY CO-SIGN I approve of the Physical Therapy notes written above. Marsha Simms PT
--- NOTE | 2019-12-05 15:07 | NUR ---
OCCUPATIONAL THERAPY CO-SIGN I approve of the Occupational Therapy notes written above. KERRY GUZMAN OTR/Juan
--- NOTE | 2019-12-05 15:37 | NUR ---
PM GROUP PT ATTENDED AFTERNOON GROUP THERAPY AND PARTICIPATED BY PUTTING TOGETHER A FEW BIRDHOUSES AND WATCHING THE LION MATEUSZ. PT WAS QUIET AND FOCUSED. PT EXPRESSED NO SUICIDAL IDEATIONS WHILE IN GROUP.
--- NOTE | 2019-12-05 17:15 | NUR ---
ZEASORB PROVIDED TO ABDOMINAL FOLDS PER PHYSICIAN ORDERS.
--- NOTE | 2019-12-05 17:21 | NUR ---
REFERRALS FAXED TO [facility], [facility] AND [facility]. PASRR RETURNS. PT. APPROVED FOR NURSING FACILITY.
--- NOTE | 2019-12-05 17:51 | NUR ---
P- DEPRESSED MOOD, PT REPORTS INCREASED ANXIETY REGARDING HOUSING SITUTATION POST DISCHARGE AND STRESS REGARDING RELATIONSHIP WITH . SUICIDAL THOUGHT PROCESSES. I- ORIENTATION, MOOD AND BEHAVIORS ASSESSED. ASSESSED PT FOR SI/HI, INTENT OR PLAN. ASSESSED PT FOR S/S HALLUCINATIONS, PARANOIA AND/OR DELUSIONS. MEDICATIONS ADMINISTERED PER PHYSICIAN'S ORDERS. ASSISTANCE WITH ADL CARE PROVIDED NEEDED. ENCOURAGED PT TO ATTEND AND PARTICIPATE IN MCAR[facility]UR MILIEU GROUPS AND ACTIVITIES. R- PT IS ALERT AND ORIENTED X4. MEMORY APPEARS TO BE INTACT. RESPS EASY AND EVEN ON ROOM AIR. MOOD APPEARS DEPRESSED WITH FLAT AFFECT. SPEECH IS WNL AND COHERENT, ABLE TO MAKE NEEDS KNOWN WITHOUT DIFFICULTY. WHEN ASKED ABOUT SUICIDAL IDEATIONS PT STATES "YEAH I STILL HAVE THOUGHTS SOMETIMES, BUT I'M NOT GOING TO DO ANYTHING, I COULDN'T DO ANYTHING HERE IF I WANTED TO". PT VOICES NO SUICIDAL PLAN. CONTRACTS FOR SAFETY. CHASTITY MNP- AWARE. PT DENIES HOMICIDAL IDEATIONS, INTENT OR PLAN. PT DENIES HALLUCINATIONS, NO RESPONSE TO INTERNAL STIMULI NOTED. PT CONTINUES TO REPORT DEPRESSED MOOD AND INCREASED ANXIETY RELATED TO STRESS AT HOME SUCH DISCHARGE PLAN AND RELATIONSHIP WITH . PT IS MED COMPLIANT WITHOUT DIFFICULTY. COMPLIANT WITH ALL AREAS OF CARE THIS SHIFT. NO DISTRESS NOTED. P- PLAN TO CONTINUE CURRENT TREATMENT, CONTINUE TO MONITOR MOOD AND BEHAVIORS, PROVIDE APPROPRIATE REORIENTATION, REDIRECTION AND 1:1 NEEDED. CONTINUE TO ENCOURAGE MEDICATION COMPLIANCE WELL GROUP ATTENDANCE AND PARTICIPATION.
[2019-12-05 20:00] VITALS: BP 120/69
--- NOTE | 2019-12-05 21:44 | NUR ---
Patient alert and oriented x4. Mood calm and cooperative with underlying irritability noted. Patient states "I am not thinking about suicide at this time but I do sometimes. I can't do anything while I am here." No s/s of any hallucinations noted at this time. Patient compliant with HS medications without any difficulty. Provided therapeutic communication and emotional support. Plan to continue to encourage medication compliance. Also continue to provide therpeutic communication and emotional support when needed. Will continue to monitor moods/behaviors. Q 15 minute safety checks continued and maintained. See [facility] flowsheet for further documentation.
--- NOTE | 2019-12-06 00:28 | NUR ---
24 HR chart check completed.
--- NOTE | 2019-12-06 05:42 | NUR ---
Patient slept approx. 5 hours throughout shift. Q 15 minute safety checks continued and maintained.
[2019-12-06 08:00] VITALS: BP 124/59
--- NOTE | 2019-12-06 09:35 | NUR ---
Patient in dining room with peers with c/o discomfort to left foot that he has spoken to Dr. Carson about. N.O. received from Dr. Carson. Destinee Ross, COMMUNICATION STUDIES PROFESSOR on unit, made aware of new orders. Respirations easy and regular. Vital signs stable. No overt distress. ADAM CARTER
--- NOTE | 2019-12-06 11:48 | NUR ---
AM GROUP/LEISURE SKILLS PT ATTENDED AND PARTICIPATED IN ALL ACTIVITY. PT PLEASANT AND ON TASK AT THIS TIME. PT OPEN WITH STAFF ABOUT [id number] AND STATES "I'M AFRAID I'M GOIGN TO FREEZE TO ON THE STREETS ONCE I LEAVE HERE" THIS STAFF ATTEMPTS TO REASSURE PT THAT WON'T HAPPEN. PT WILL CONTINUE TO ATTEND/PARTICIPATE IN FUTRUE GROUP SESSIONS.
--- NOTE | 2019-12-06 15:59 | NUR ---
PM GROUP/LEISURE SKILLS PT ATTENDED AND PARTICIPATED IN ALL ACTIVITY. PT DEPRESSED STATING "I WILL PARTICIPATE AND DO EVERYTHING I NEED TO BUT I'M NOT GOING TO EAT ANYMORE" "THIS STAFF ASKS WHY?" PT STATES "IF IM GOING TO BE LIVING ON THE STREETS IM GOING TO SO I MIGHT WELL DO IT ON MY TIME" THIS STAFF OFFERED WORDS OF COMFORT AND WILL INFORM PT NURSE OF PT STATEMENT. PT WILL BE ENCOURAGED TO ATTEND/PARTICIPATE IN FUTRUE GROUP SESSIONS.
[2019-12-06 20:00] VITALS: BP 115/87
--- NOTE | 2019-12-06 21:52 | NUR ---
Patient alert and oriented x4. Mood calm and cooperative with underlying irritability noted. Patient denies suicidal thoughts at this time. No s/s of any hallucinations noted at this time. Patient compliant with HS medications without any difficulty. Provided therapeutic communication and emotional support. Plan to continue to encourage medication compliance. Also continue to provide therpeutic communication and emotional support when needed. Will continue to monitor moods/behaviors. Q 15 minute safety checks continued and maintained. See [facility] flowsheet for further documentation.
--- NOTE | 2019-12-07 00:15 | NUR ---
24 HR chart check completed.
--- NOTE | 2019-12-07 05:55 | NUR ---
Patient slept approx. 6.5 hours throughout shift. Q 15 minute safety checks continued and maintained.
[2019-12-07 08:00] VITALS: BP 134/70
--- NOTE | 2019-12-07 12:16 | NUR ---
AM GROUP/EXERCISE/BRAIN GAMES PT IN ATTENDNACE AND PARTICIPATED UNTIL PT BEGAN "DOZING OFF" HE STATED. PT STATES "MY ROOMMATE HAD ME UP ALL NIGHT THE NURSES HAD TO OME IN AND CHANGE HIM EVERY 2 HOURS" PT EXPRESSES NO ANXIETY OR S.I. AT THIS TIME. PT EXCITED FOR LUNCH TODAY STATING "CHEESEBURGERS ARE MY FAVORITE". PT WILL CONTINUE TO ATTEND AN DPARTICIPATE IN FUTURE GROUP SESSIONS.
--- NOTE | 2019-12-07 14:41 | NUR ---
PT COOPERATIVE TODAY MEDICAITON COMPLIANT WITH ALL INTERACTIONS. FED SELF MEAL WITH SET UP. DRESSING CHANGE TO FOOT COMPLETED TODAY. PT RESTED THIS AM AFTER MEAL. UP IN LOUNGE AT THIS TIME WITH NO REPORTS OF SI/HI OR DELUSIONS. PT CONTINUES TO HAVE FLAT DEPRESSED AFFECT, STATED HE IS CONCERNED OF WHERE HE WILL GO WHEN LEAVING HERE. DISCUSSED DISCHARGE INFORMATION IN REFERENCE TO CARE FACILITY WHICH APPEARED TO BRING THE PT RELIEF. PT WILL TRANSFER TO WHEEL CHAIR UNASSISTED AT THIS TIME WITH SAFETY AWARENESS.
[2019-12-07 20:00] VITALS: BP 111/64
--- NOTE | 2019-12-07 23:27 | NUR ---
Patient alert and oriented x4. Mood calm and cooperative with underlying irritability noted. Patient denies suicidal thoughts at this time. No s/s of any hallucinations noted at this time. Patient compliant with HS medications without any difficulty. Provided therapeutic communication and emotional support. Plan to continue to encourage medication compliance. Also continue to provide therpeutic communication and emotional support when needed. Will continue to monitor moods/behaviors. Q 15 minute safety checks continued and maintained. See [facility] flowsheet for further documentation.
--- NOTE | 2019-12-08 00:43 | NUR ---
24 HR chart check completed.
--- NOTE | 2019-12-08 05:51 | NUR ---
Patient slept approx. 6.5 hours throughout shift. Q 15 minute safety checks continued and maintained.
[2019-12-08 07:52] VITALS: BP 101/65
--- NOTE | 2019-12-08 08:25 | NUR ---
PHYSICAL THERAPY Patient seen this am for therapy visit and was sitting in activity room w/c upon therapist arrival. Patient identified by name / and was joined by OT credit assistant who was present for observation only this session. Patient reports 8/10 L foot pain, including ravinder wrap and agreed to seated B LE therex. Patient performed AROM, all planes, 2 x 10 reps each to increase LE strength. Patient also transfers sit to stand at rail, SBA x several trials and returned to activity room in his w/c. Patient remained in activity room under [facility] staff Supervision and will continue per POC as tolerated, total treatment time 16 minutes. Nash Arango, RUBBER TIRE CURER
--- NOTE | 2019-12-08 08:35 | NUR ---
OT NOTE Prior to coming to the floor spoke with charge nurse Tiesha and reported that therapy would be coming to the floor to treat this pt. Pt was seen this A.M. 1:1 for 15 minute OT session. Pt identified by name and and had complaints of 10/10 L foot pain and 8-9/10 B knee pain. Upon arrival pt was sitting upright in the dining stockton in his w/c. While seated pt doffed and donned B socks with SBA. Pt was then taken out into the hallway where he completed multiple sit to stands from chair level with SBA and use of hand rail for UE support. Challenged pt's static standing tolerance needed for increased I in self care tasks and functional transfers and pt was able to tolerate aprox 50-90 seconds before sitting due to fatigue and pain in B knees and L foot. Attempted to complete other tasks and ADL tasks and pt declined due to 10/10 pain. Pt then completed w/c mobility back to the dining stockton managing brakes, turns, and propelling in all directions with supervision. Pt was left sitting upright in the w/c in the dining stockton under [facility] staff supervision. Continue with rec D/C plan to SNF. MACY North/Juan
--- NOTE | 2019-12-08 09:40 | NUR ---
TREATMENT PLAN MEETING WAS HELD WITH NERY DOVE RN, SERVICE DISMANTLER-S AND BAIL AGENT. PLAN FOR DISCHARGE WHEN STABLE. REFERRALS HAVE BEEN SENT TO [facility], [facility] AND [facility].
--- NOTE | 2019-12-08 11:32 | NUR ---
EDU PAYTON FROM [facility] CALLS. PT. IS OUT OF NETWORK FOR FACILITY AND WOULD BE PRIVATE PAY AND 20 DAYS UP FRONT MUST BE PAID PRIOR TO ADMIT.
--- NOTE | 2019-12-08 12:02 | NUR ---
Met with pt and informed him that this process description writer had received a message from pt's Edel requesting a return call. Pt stated that he did not want this process description writer telling Edel anything except that we were pursuing SNF for pt. Pt shared that his first call with his was awful - pt and yelling at each other. Pt stated that his called today and acted as if the previous call never happened. Pt stated that Edel told him that there were stipulations for pt to return to his home. Pt stated that he can't deal with the "insanity" right now with Edel. Pt confirmed that he wants to continue pursuing SNF placement. Pt denies suicidal ideations and is future-oriented as he continues to want SNF for discharge.
--- NOTE | 2019-12-08 13:41 | NUR ---
UBALDO HAYES DECLINED REFERRAL.
--- NOTE | 2019-12-08 13:42 | NUR ---
Pt asked to see this writer technical publications again. Pt stated that he has changed his mind. Pt stated that he is worried that if he goes to a SNF that his will think that he has given up on her and pt doesn't want her to believe that. Pt was tearful as he asked this writer technical publications to call pt's and explain that he wants to come home. Pt stated that his has given him some stipulations in order to return home and that pt is willing to adhere to them. After meeting with pt, phoned pt's Edel. Lengthy conversation with Edel. Edel provided pt history already known to this writer technical publications. Edel discussed pt returning home vs SNF. Edel stated that she feels it would be beneficial for pt to discharge to SNF before returning home. Will discuss further with pt.
--- NOTE | 2019-12-08 15:56 | NUR ---
P: INTTERMITTENT DEPRESSIVE WEEPY WITH INTERACTION, VARIED THOUGH PROCESS OF WANTS WITH OR COMMUNICATIONS WITH SPOUSE I: PT SPOKE WITH SPOUSE TODAY 2 TIMES, AND HAD 1:1 WITH SUPERVISOR COVERING AND LINING. INCREASED WEEPY DEPRESSIVE BEHAVIORS IN COMPARISON OF YESTERDAYS INTERACTIONS. REDIRECTED AT VARIOUS POINTS WITH EFFECTIVE RESULTS. ENCOURAGED COPING SKILLS DEEP BREATHING, ENCOURAGED SELF CARE R: PT TOLERATED WELL CONTINUED TO GET INTERMITTENTLY UPSET IF HE SPEAKS ABOUT HER HE CONTINUES TO WEEP, PT VOICES CONCERNS ABOUT GETTING 3 MEALS A DAY, STATES HE GOES TO FOOD PANTRIES AND MOST INCOME GOES TO BILLS SO DIFFICULT TO HAVE 3 MEALS. P: CONTINUE TO MONITOR FOR COPING SKILLS AND ENCOURAGE USAGE OF THEM. MONITOR PHONE CALLS TO SEE ABOUT TRIGGERS, ENCOURAGE SELF CARE WITH PT. DUE TO HE WILL CHOOSE TO NOT CHANGE CLOTHING OR PROVIDE HIMSELF WITH HYGIENE CARE UNLESS PROMPTED. NO SI/HI OR DELUSIONS PRESENT.
--- NOTE | 2019-12-08 16:40 | NUR ---
REFERRALS FAXED TO [facility], [facility] AT [facility] AND [facility].
[2019-12-08 19:43] VITALS: BP 114/61
--- NOTE | 2019-12-08 21:22 | NUR ---
P--HELPLESS. AGGITATION I--DISCUSSED HIS DAY. REVIEWED HIS MEDICATIONS. OFFERED 1:1 (DECLINED WATCHING MOVIE). MEDICATED PER ORDERS. REVIEWED HIS DAY. SNACK AND FLUIDS PROVIDED BY STAFF. ENCOURAGED TO DO ORAL CARE R--MY DAY WAS FINE. NO PROBLEMS. I AM ENJOYING THIS MOVIE. MEDICATION COMPLIANT. DECLINED COVERAGE P--MONITOR FOR CHANGES IN BEHAVIOR/MOOD. MONITOR Q15 MINUTES AND PRN FOR SAFETY. BE AVAILABLE FOR EMOTIONAL SUPPORT AND NEEDS
--- NOTE | 2019-12-09 03:46 | NUR ---
24 HR chart check completed.
--- NOTE | 2019-12-09 06:58 | NUR ---
IRRITATED THIS MORNING WITH MED PASS. STATES THERE ARE TOO MANY PASSES IN A DAY
--- NOTE | 2019-12-09 07:01 | NUR ---
NON COMPLIANT WITH FALL PRECAUTIONS. PUSHING WHEELCHAIR BACKWARDS.
--- NOTE | 2019-12-09 07:05 | NUR ---
PHYSICAL THERAPY Patient seen this am for therapy visit and was sitting up in activity room w/c upon therapist arrival. Patient identified by name / and was pleasant this moring voicing no new c/o's. OT assistant child care teacher was also present for observation only this sesssion as patient transfers sit to stand SBA x 1. Patient ambulates with use of B st canes, 50' x 2, demonstrating "waddling" gait pattern and "slouched" upright posture. Patient also demonstrates decreaed stride with very slow giovanny and reports 5/10 B knee pain following gait ex. Patient returned to w/c in activity room awaiting breakfast, under [facility] staff Supervision. Will continue per POC as tolerated, total treatment time 16 minutes. Nash Arango, PROFESSOR OF SOCIAL WORK
--- NOTE | 2019-12-09 07:12 | NUR ---
Faxed [facility] to [facility]. Awaiting response.
--- NOTE | 2019-12-09 07:17 | NUR ---
OT NOTE Prior to coming to floor spoke with charge nurse Lo and reported that therapy would be coming to the floor to treat this pt. Pt was seen this A.M. 1:1 for 17 minute OT session with COMPUTER REPAIRER and nursing staff present for observation only. Upon arrival pt was sitting upright in the w/c in the dining stockton. Pt identified by name and and had complaints of 5/10 B knee pain. Pt completed sit to stand from chair level with SBA followed by functional mobility to the bathroom with SBA and use of 2 canes. There pt transferred on/off standard commode with SBA and use of grab bar for UE support. Pt then stood sink side while washing his hands with SBA for safety. No LOB was noted throughout. Functional mobility was then completed back to the dining stockton with SBA and use of 2 canes. W/c mobility completed around the dining stockton to the table with supervision. Pt was left sitting upright in the w/c in the dining stockton under [facility] staff supervision and 2 canes were given back to nursing and locked up. Continue with rec D/C plan to SNF. MACY North/Juan
[2019-12-09 08:17] VITALS: BP 104/59
--- NOTE | 2019-12-09 08:26 | NUR ---
Patient is eating breakfast in dining room with peers. Respirations easy and regular. Vital signs stable. No overt distress. YOLIS LY and Vivienne [facility]- on unit to see pt at this time, update given.
[2019-12-09] MEDS ORDERED: LATU80TA PO (09:14)
[2019-12-09] MEDS ORDERED: DIVALPROEX SOD500 MG PO (09:14)
--- NOTE | 2019-12-09 10:51 | NUR ---
AND TEAM ON UNIT TO SEE PT AT THIS TIME, MADE AWARE OF DISCHARGE FOR TODAY.
--- NOTE | 2019-12-09 11:05 | NUR ---
PATIENT IS TO FOLLOW WITH [facility] SundayDecember 1:00 P.M. FOR LEG WOUNDS.
[2019-12-09] MEDS ORDERED: LACTULOSE20 GM/30 M PO (11:14)
[2019-12-09] MEDS ORDERED: MIRTAZAPINE15 M2 PO (11:14)
--- NOTE | 2019-12-09 11:40 | NUR ---
Spoke with pt's Edel about pt discharging today and follow-up appointments scheduled for pt. Also met with pt and discussed follow-up appointments.
--- NOTE | 2019-12-09 11:41 | NUR ---
Patient is discharging today to home. The original discharge plan was for pt to discharge to a SNF before returning home. After pt and his discussed this further, pt decided that he wanted to discharge to home. Follow-up will be with Ana Huerta PA-C at [facility]. Ana Resendez will then refer pt to counselor for psychotherapy. Pt is also scheduled to see his PCP on 12/16. At that time pt should receive an order for outpatient PT/OT. While at [facility], pt's suicidal ideations resolved. At time of discharge, pt is future-oriented as he is making plans to attend counseling and PT/OT.
--- NOTE | 2019-12-09 11:51 | NUR ---
AM GROUP/EXERCISE AND PARACHUTE PT WAS PRESENT FOR MORNING GROUP THERAPY BUT CHOSE NOT TO PARTICIPATE DUE TO BEING RELEASED FROM THE UNIT AT ANYTIME.
--- NOTE | 2019-12-09 11:51 | NUR ---
THIS RN APPROACHED PT TO TAKE DISCHARGE WOUND PHOTOS AT THIS TIME, PT REFUSED WOUND DISHCARGE PHOTOS AND TREATMENT THIS DATE, PT STATES "THEY'VE GOT IT WRAPPED UP REALLY NICE, I DON'T WANT IT UNWRAPPED TODAY". WITNESSED BY 2ND RN MARGOT.ISLVIA.
--- NOTE | 2019-12-09 11:58 | NUR ---
PT EATING LUNCH AT THIS TIME, BSG 62, NO S/S DIABETIC IMBALANCE NOTED.
--- NOTE | 2019-12-09 12:13 | NUR ---
NO ADVERSE MOODS OR BEHAVIORS THIS SHIFT. PT IS ALERT AND ORIENTED X4. MEMORY INTACT. RESPS EASY AND EVEN ON ROOM AIR. MOOD REPORTS FEELING DEPRESSED BUT STATES IT IS "MUCH BETTER THAN WHEN I GOT HERE". PT STATES "MY ANXIETY IS ABOUT A 1 AND MY DEPRESSION IS A 4, I'M BETTER, IT IS WHAT IT IS". AFFECT IS FLAT. SPEECH IS WNL AND COHERENT, ABLE TO MAKE NEEDS KNOWN WITHOUT DIFFICULTY. PT DENIES SI/HI, INTENT OR PLAN. PT DENIES HALLUCINATIONS, NO RESPONSE TO INTERNAL STIMULI NOTED. NO PARANOIA OR DELUSIONS NOTED. PT IS CALM AND COOPERATIVE. REFUSED DISCHARGE WOUND PHOTOS. MED COMPLIANT WITHOUT DIFFICULTY. NO DISTRESS NOTED. PLAN TO CONTINUE CURRENT TREATMENT, ASSIST PT IN PREPARING FOR HOSPITAL DISCHARGE.
--- NOTE | 2019-12-09 12:52 | NUR ---
DISCHARGE INSTRUCTIONS REVIEWED WITH PT PRIOR TO DISCHARGE WITH PT'S STATED UNDERSTANDING OF ALL. ALL QUESTIONS ANSWERED. AWAITING 'S ARRIVAL TO TRANSPORT PT HOME AT THIS TIME.
--- NOTE | 2019-12-09 14:00 | NUR ---
bsg reassessed per nursing measure, result 122. no s/s distress noted. pt awaiting 's arrival for discharge to home at this time. reiceved call from with eta 15 mins. pt notified. pt getting ready to leave with assist of mhw.
--- NOTE | 2019-12-09 14:33 | NUR ---
PT DISCHARGED AT THIS TIME TO HOME WITH [facility] VIA PRIVATE VEHICLE. ALL PERSONAL BELONGINGS WERE SENT WITH THE PT. PT LEFT THE UNIT IN STABLE CONDITION AT 1433 [facility]
--- NOTE | 2019-12-09 15:38 | NUR ---
IP 3/2 lit per [employer] at [facility]. IP all days lit. Ref # [id number]. Faxed discharge clinical.
--- NOTE | 2019-12-10 07:05 | NUR ---
OCCUPATIONAL THERAPY CO-SIGN I approve of the Occupational Therapy notes written above. BELLA LOVE, OTR/L
== END 2019-12-09 14:33 | disposition home or self-care (01) | DRG 885 ==
LOC: ED 19:58 → 3N 12-03 02:26
PROVIDERS: Emergency Medicine; ADMIT Psychiatry & Neurology Psychiatry
PROC: 0HBRXZZ Excision of Toe Nail, External Approach (ICD-10-PCS; principal; 2019-12-03)
DX: F33.2 Major depressive disorder, recurrent severe without psychotic features (principal); N17.0 Acute kidney failure with tubular necrosis; L97.429 Non-pressure chronic ulcer of left heel and midfoot with unspecified severity; N39.0 Urinary tract infection, site not specified; R45.851 Suicidal ideations; I48.11 Longstanding persistent atrial fibrillation; I50.32 Chronic diastolic (congestive) heart failure; M19.90 Unspecified osteoarthritis, unspecified site; E66.01 Morbid (severe) obesity due to excess calories; E11.621 Type 2 diabetes mellitus with foot ulcer; E11.65 Type 2 diabetes mellitus with hyperglycemia; D72.810 Lymphocytopenia; E87.8 Other disorders of electrolyte and fluid balance, not elsewhere classified; E78.5 Hyperlipidemia, unspecified; G25.81 Restless legs syndrome; I89.0 Lymphedema, not elsewhere classified; M54.5 Low back pain; G89.29 Other chronic pain; D64.9 Anemia, unspecified; I11.0 Hypertensive heart disease with heart failure; F25.0 Schizoaffective disorder, bipolar type; F41.9 Anxiety disorder, unspecified; E11.42 Type 2 diabetes mellitus with diabetic polyneuropathy; I25.10 Atherosclerotic heart disease of native coronary artery without angina pectoris; M50.30 Other cervical disc degeneration, unspecified cervical region; S90.415A Abrasion, left lesser toe(s), initial encounter; W22.8XXA Striking against or struck by other objects, initial encounter; Y93.89 Activity, other specified; Z86.718 Personal history of other venous thrombosis and embolism; Y92.89 Other specified places as the place of occurrence of the external cause; Y99.8 Other external cause status; Z88.0 Allergy status to penicillin; Z88.1 Allergy status to other antibiotic agents; Z91.018 Allergy to other foods; Z90.49 Acquired absence of other specified parts of digestive tract; Z89.429 Acquired absence of other toe(s), unspecified side; Z84.89 Family history of other specified conditions; Z86.711 Personal history of pulmonary embolism; Z68.38 Body mass index [BMI] 38.0-38.9, adult

== ENCOUNTER 2020-03-10 05:34 | Inpatient (IN) | payer OTHER ==
[2020-03-10] VITALS (13 sets, daily range): BP systolic 87–125; BP diastolic 41–73
[~2020-03-10] VITALS: Ht 177.8 cm; Wt 152.6 kg
[~2020-03-10 05:34] MED LIST changes: +LACTULOSE20 GM/30 M PO; +REMERON30 M1 PO; +XALATAN 0.005%2.5 ML OU
[2020-03-10 06:24] LABS: HEMATOCRIT 44.8 % (42.0-52.0); MEAN CELL VOLUME 91.6 fl (80.0-94.0); MEAN CORPUSCULAR HGB 30.3 pg (27.0-31.0); MEAN PLATELET VOLUME 10.5 fl (9.6-12.3); PLATELET COUNT AUTOMATED 216 10*3/uL (130-400); RED BLOOD COUNT 4.89 10*6/uL (4.50-5.90); RED CELL DISTRI WIDTH 13.7 % (0-14.5); WHITE BLOOD COUNT 18.9 10*3/uL (4.8-10.8)
[2020-03-10 06:32] LABS: INTERNATIONAL NORM RATIO 1.1 (2.0-3.5)
[2020-03-10 06:45] LABS: ALBUMIN 3.3 gm/dl (3.1-4.5); CREATININE 2.83 mg/dL (0.70-1.30); TOTAL PROTEIN 7.4 gm/dL (6.4-8.2)
[2020-03-10 06:46] LABS: PLATELET SUFFICIENCY NORMAL (NORMAL); TOTAL CELLS COUNTED 100 #CELLS
[2020-03-10 06:47] LABS: POLYCHROMASIA SLIGHT
[2020-03-10 06:48] LABS: TROPONIN I 3.02 ng/ml (<0.045)
[2020-03-10 07:20] LABS: BILIRUBIN NEGATIVE (NEGATIVE); BLOOD 3+ (NEGATIVE); CLARITY CLOUDY (CLEAR); COLOR BROWN (YELLOW); GLUCOSE NEGATIVE (NEGATIVE); KETONE 1+ (NEGATIVE); LEUKO ESTERASE 1+ (NEGATIVE); NITRITE NEGATIVE (NEGATIVE); UROBILINOGEN 0.2 E.U./dl (0.2-1.0)
[2020-03-10 07:34] LABS: RBC TNTC rbc/hpf (0-2)
[2020-03-10 07:35] LABS: BACTERIA 2+; CALCIUM OXALATE CRYSTALS 3+; COARSE GRANULAR CAST 31-40; WBC 16-20 wbc/hpf (0-5)
[2020-03-10 07:36] LABS: MUCOUS 1+
[2020-03-10 16:12] LABS: ALBUMIN 2.9 gm/dl (3.1-4.5); CREATININE 1.72 mg/dL (0.70-1.30)
[2020-03-10 16:18] LABS: POTASSIUM 3.9 mmol/L (3.5-5.1)
[2020-03-11] VITALS (10 sets, daily range): BP systolic 82–124; BP diastolic 50–79
[2020-03-11 03:53] LABS: BASO % 0.2 % (0.0-1.0); EOS % 0.1 % (1.0-4.0); HEMATOCRIT 41.6 % (42.0-52.0); LYMPH # 1.6 10*3/uL (1.3-4.4); LYMPH % 11.6 % (27.0-41.0); MEAN CELL VOLUME 89.8 fl (80.0-94.0); MEAN CORPUSCULAR HGB 30.5 pg (27.0-31.0); MEAN CORPUSCULAR HGB CONC 33.9 g/dl (33.0-37.0); MEAN PLATELET VOLUME 10.3 fl (9.6-12.3); MONO # 1.3 10*3/uL (0.1-1.0); MONO % 9.4 % (3.0-9.0); NEUT # 10.8 10*3/uL (2.3-7.9); NEUT % 78.3 % (47.0-73.0); PLATELET COUNT AUTOMATED 191 10*3/uL (130-400); RED BLOOD COUNT 4.63 10*6/uL (4.50-5.90); RED CELL DISTRI WIDTH 13.2 % (0-14.5); WHITE BLOOD COUNT 13.8 10*3/uL (4.8-10.8)
[2020-03-11 04:23] LABS: ALBUMIN 2.8 gm/dl (3.1-4.5); ALKALINE PHOSPHATASE 67 U/L (45-117); BUN 27 mg/dl (7-24); CHLORIDE 100 mmol/L (98-107); CREATININE 1.04 mg/dL (0.70-1.30); POTASSIUM 3.8 mmol/L (3.5-5.1); SGOT/AST 583 IU/L (3-35); SGPT/ALT 155 U/L (12-78); SODIUM 136 mmol/L (136-145); TOTAL PROTEIN 6.7 gm/dL (6.4-8.2)
[2020-03-11 04:45] LABS: THYROID STIM HORMONE (HS) 0.603 uIU/ml (0.358-4.75)
[2020-03-11 06:14] LABS: CPK 20934 U/L (39-308)
[2020-03-12] VITALS (7 sets, daily range): BP systolic 103–124; BP diastolic 49–75
[2020-03-12 06:23] LABS: ALBUMIN 2.6 gm/dl (3.1-4.5); ALKALINE PHOSPHATASE 67 U/L (45-117); BUN 32 mg/dl (7-24); CHLORIDE 101 mmol/L (98-107); CREATININE 0.98 mg/dL (0.70-1.30); POTASSIUM 3.8 mmol/L (3.5-5.1); SGOT/AST 228 IU/L (3-35); SGPT/ALT 130 U/L (12-78); SODIUM 135 mmol/L (136-145); TOTAL PROTEIN 6.5 gm/dL (6.4-8.2)
[2020-03-12 06:31] LABS: BASO % 0.2 % (0.0-1.0); EOS % 0.1 % (1.0-4.0); HEMATOCRIT 36.6 % (42.0-52.0); LYMPH % 14.3 % (27.0-41.0); MEAN CELL VOLUME 91.7 fl (80.0-94.0); MEAN CORPUSCULAR HGB 30.3 pg (27.0-31.0); MEAN CORPUSCULAR HGB CONC 33.1 g/dl (33.0-37.0); MEAN PLATELET VOLUME 11.2 fl (9.6-12.3); MONO # 1.4 10*3/uL (0.1-1.0); NEUT # 10.3 10*3/uL (2.3-7.9); NEUT % 74.5 % (47.0-73.0); PLATELET COUNT AUTOMATED 186 10*3/uL (130-400); RED BLOOD COUNT 3.99 10*6/uL (4.50-5.90); RED CELL DISTRI WIDTH 13.2 % (0-14.5); WHITE BLOOD COUNT 13.9 10*3/uL (4.8-10.8)
[2020-03-12 06:46] LABS: CPK 6685 U/L (39-308)
[2020-03-12 07:12] LABS: PLATELET SUFFICIENCY NORMAL (NORMAL)
[2020-03-13] VITALS: BP 113/50
[2020-03-13 04:00] VITALS: BP 122/45
[2020-03-13 06:10] LABS: MEAN CELL VOLUME 90.9 fl (80.0-94.0); MEAN CORPUSCULAR HGB 30.2 pg (27.0-31.0); MEAN CORPUSCULAR HGB CONC 33.2 g/dl (33.0-37.0); NUCLEATED RED BLOOD CELL 0.2 % (0.0-0.0); PLATELET COUNT AUTOMATED 190 10*3/uL (130-400); RED BLOOD COUNT 3.74 10*6/uL (4.50-5.90); RED CELL DISTRI WIDTH 13.2 % (0-14.5); WHITE BLOOD COUNT 15.1 10*3/uL (4.8-10.8)
[2020-03-13 06:26] LABS: ALBUMIN 2.4 gm/dl (3.1-4.5); ALKALINE PHOSPHATASE 65 U/L (45-117); BUN 27 mg/dl (7-24); CHLORIDE 101 mmol/L (98-107); CREATININE 0.84 mg/dL (0.70-1.30); POTASSIUM 3.9 mmol/L (3.5-5.1); SGOT/AST 126 IU/L (3-35); SGPT/ALT 102 U/L (12-78); SODIUM 135 mmol/L (136-145); TOTAL PROTEIN 6.3 gm/dL (6.4-8.2)
[2020-03-13 06:39] LABS: CPK 2560 U/L (39-308)
[2020-03-13 07:09] LABS: PLATELET SUFFICIENCY NORMAL (NORMAL); POLYCHROMASIA SLIGHT; TOTAL CELLS COUNTED 100 #CELLS; TOXIC GRANULATION SLIGHT
[2020-03-13 08:00] VITALS: BP 112/52
[2020-03-13 12:00] VITALS: BP 113/68
[2020-03-13 16:00] VITALS: BP 110/78
[2020-03-13 20:00] VITALS: BP 141/46
[2020-03-14] VITALS: BP 143/76
[2020-03-14 06:24] LABS: HEMATOCRIT 34.1 % (42.0-52.0); MEAN CELL VOLUME 93.2 fl (80.0-94.0); MEAN CORPUSCULAR HGB 30.3 pg (27.0-31.0); MEAN CORPUSCULAR HGB CONC 32.6 g/dl (33.0-37.0); NUCLEATED RED BLOOD CELL 0.1 10*3/uL (0.0-0.0); NUCLEATED RED BLOOD CELL 0.6 % (0.0-0.0); PLATELET COUNT AUTOMATED 222 10*3/uL (130-400); RED BLOOD COUNT 3.66 10*6/uL (4.50-5.90); RED CELL DISTRI WIDTH 13.2 % (0-14.5); WHITE BLOOD COUNT 13.3 10*3/uL (4.8-10.8)
[2020-03-14 06:25] LABS: ALBUMIN 2.4 gm/dl (3.1-4.5); BUN 28 mg/dl (7-24); CHLORIDE 100 mmol/L (98-107); CREATININE 0.94 mg/dL (0.70-1.30); SGOT/AST 93 IU/L (3-35); SGPT/ALT 90 U/L (12-78); SODIUM 134 mmol/L (136-145); TOTAL PROTEIN 6.3 gm/dL (6.4-8.2)
[2020-03-14 06:38] LABS: ALKALINE PHOSPHATASE 65 U/L (45-117)
[2020-03-14 06:39] LABS: CPK 1393 U/L (39-308)
[2020-03-14 07:13] LABS: TOTAL CELLS COUNTED 100 #CELLS
[2020-03-14 07:14] LABS: PLATELET SUFFICIENCY NORMAL (NORMAL); POLYCHROMASIA SLIGHT
[2020-03-14 08:00] VITALS: BP 111/56
[2020-03-14 12:00] VITALS: BP 122/66
[2020-03-14 16:00] VITALS: BP 120/50
[2020-03-14 20:00] VITALS: BP 131/60
[2020-03-15] VITALS: BP 117/60
[2020-03-15 06:00] LABS: HEMATOCRIT 33.4 % (42.0-52.0); MEAN CELL VOLUME 93.6 fl (80.0-94.0); MEAN CORPUSCULAR HGB 30.3 pg (27.0-31.0); MEAN CORPUSCULAR HGB CONC 32.3 g/dl (33.0-37.0); MEAN PLATELET VOLUME 10.5 fl (9.6-12.3); NUCLEATED RED BLOOD CELL 0.1 10*3/uL (0.0-0.0); NUCLEATED RED BLOOD CELL 0.5 % (0.0-0.0); PLATELET COUNT AUTOMATED 232 10*3/uL (130-400); RED BLOOD COUNT 3.57 10*6/uL (4.50-5.90); RED CELL DISTRI WIDTH 13.5 % (0-14.5); WHITE BLOOD COUNT 13.8 10*3/uL (4.8-10.8)
[2020-03-15 06:18] LABS: ALBUMIN 2.3 gm/dl (3.1-4.5); ALKALINE PHOSPHATASE 61 U/L (45-117); BUN 21 mg/dl (7-24); CHLORIDE 101 mmol/L (98-107); POTASSIUM 3.9 mmol/L (3.5-5.1); SODIUM 135 mmol/L (136-145)
[2020-03-15 06:24] LABS: CREATININE 0.75 mg/dL (0.70-1.30); SGOT/AST 69 IU/L (3-35); SGPT/ALT 74 U/L (12-78); TOTAL PROTEIN 5.9 gm/dL (6.4-8.2)
[2020-03-15 07:04] LABS: PLATELET SUFFICIENCY NORMAL (NORMAL); POLYCHROMASIA SLIGHT; TOTAL CELLS COUNTED 100 #CELLS
[2020-03-15 08:00] VITALS: BP 124/64
[2020-03-15 12:00] VITALS: BP 133/69
[2020-03-15 16:00] VITALS: BP 139/72
[2020-03-15 20:00] VITALS: BP 121/58
[2020-03-16] VITALS: BP 118/54
[2020-03-16 06:51] LABS: HEMATOCRIT 32.6 % (42.0-52.0); MEAN CELL VOLUME 95.3 fl (80.0-94.0); MEAN CORPUSCULAR HGB 30.4 pg (27.0-31.0); MEAN CORPUSCULAR HGB CONC 31.9 g/dl (33.0-37.0); MEAN PLATELET VOLUME 10.5 fl (9.6-12.3); NUCLEATED RED BLOOD CELL 0.1 10*3/uL (0.0-0.0); NUCLEATED RED BLOOD CELL 0.3 % (0.0-0.0); PLATELET COUNT AUTOMATED 228 10*3/uL (130-400); RED BLOOD COUNT 3.42 10*6/uL (4.50-5.90); RED CELL DISTRI WIDTH 14.3 % (0-14.5); WHITE BLOOD COUNT 15.4 10*3/uL (4.8-10.8)
[2020-03-16 07:10] LABS: BUN 17 mg/dl (7-24); CHLORIDE 99 mmol/L (98-107); CREATININE 0.69 mg/dL (0.70-1.30); POTASSIUM 3.8 mmol/L (3.5-5.1); SODIUM 133 mmol/L (136-145)
[2020-03-16 07:15] LABS: CPK 374 U/L (39-308)
[2020-03-16 07:20] LABS: TOTAL CELLS COUNTED 100 #CELLS
[2020-03-16 07:21] LABS: PLATELET SUFFICIENCY NORMAL (NORMAL); POLYCHROMASIA SLIGHT
[2020-03-16 08:00] VITALS: BP 112/56
[2020-03-16 12:00] VITALS: BP 121/70
[2020-03-16 16:00] VITALS: BP 129/63
[2020-03-16 20:00] VITALS: BP 104/50
[2020-03-17] VITALS: BP 133/51
[2020-03-17 06:09] LABS: HEMATOCRIT 33.1 % (42.0-52.0); MEAN CELL VOLUME 95.1 fl (80.0-94.0); MEAN CORPUSCULAR HGB 30.5 pg (27.0-31.0); MEAN PLATELET VOLUME 10.1 fl (9.6-12.3); NUCLEATED RED BLOOD CELL 0.1 10*3/uL (0.0-0.0); NUCLEATED RED BLOOD CELL 0.3 % (0.0-0.0); PLATELET COUNT AUTOMATED 241 10*3/uL (130-400); RED BLOOD COUNT 3.48 10*6/uL (4.50-5.90); RED CELL DISTRI WIDTH 14.5 % (0-14.5); WHITE BLOOD COUNT 16.1 10*3/uL (4.8-10.8)
[2020-03-17 06:41] LABS: BUN 17 mg/dl (7-24); CHLORIDE 101 mmol/L (98-107); CREATININE 0.71 mg/dL (0.70-1.30); POTASSIUM 4.1 mmol/L (3.5-5.1); SODIUM 135 mmol/L (136-145)
[2020-03-17 07:16] LABS: PLATELET SUFFICIENCY NORMAL (NORMAL); POLYCHROMASIA SLIGHT; TOTAL CELLS COUNTED 100 #CELLS
[2020-03-17 08:00] VITALS: BP 131/53
[2020-03-17 16:00] VITALS: BP 113/60; BP 114/68
[2020-03-17 20:00] VITALS: BP 107/55
[2020-03-18] VITALS: BP 102/58; BP 93/66
[2020-03-18 06:30] LABS: HEMATOCRIT 32.2 % (42.0-52.0); MEAN CELL VOLUME 96.4 fl (80.0-94.0); MEAN CORPUSCULAR HGB 30.2 pg (27.0-31.0); MEAN CORPUSCULAR HGB CONC 31.4 g/dl (33.0-37.0); MEAN PLATELET VOLUME 10.1 fl (9.6-12.3); NUCLEATED RED BLOOD CELL 0.2 % (0.0-0.0); PLATELET COUNT AUTOMATED 253 10*3/uL (130-400); RED BLOOD COUNT 3.34 10*6/uL (4.50-5.90); RED CELL DISTRI WIDTH 14.6 % (0-14.5); WHITE BLOOD COUNT 12.9 10*3/uL (4.8-10.8)
[2020-03-18 06:56] LABS: BUN 16 mg/dl (7-24); CHLORIDE 101 mmol/L (98-107); POTASSIUM 3.9 mmol/L (3.5-5.1); SODIUM 136 mmol/L (136-145)
[2020-03-18 07:18] LABS: PLATELET SUFFICIENCY NORMAL (NORMAL); TOTAL CELLS COUNTED 100 #CELLS
[2020-03-18 08:00] VITALS: BP 105/43
[2020-03-18] MEDS ORDERED: ASPIRIN ADULT L81 M2 PO (10:39)
[2020-03-18] MEDS ORDERED: LEVOFLOXACIN750 M2 PO (10:39)
[2020-03-18] MEDS ORDERED: LEVAQUIN750 M1 PO (10:39)
[2020-03-18] MEDS ORDERED: METOPROLOL SUCC25 M2 PO (10:39)
== END 2020-03-18 12:32 | disposition home or self-care (01) | DRG 871 ==
LOC: ED 05:34 → ICCU 09:13 → EDHOLD 09:13 → ICCU 09:29 → 5E 03-13 10:21
PROVIDERS: Emergency Medicine; Internal Medicine; Internal Medicine Nephrology; Student in an Organized Health Care Education/Training Program; ADMIT Family Medicine
PROC: 0HBRXZZ Excision of Toe Nail, External Approach (ICD-10-PCS; 2020-03-11)
PROC: 3E073KZ Introduction of Other Diagnostic Substance into Coronary Artery, Percutaneous Approach (ICD-10-PCS; principal; 2020-03-17)
PROC: 4A02XM4 Measurement of Cardiac Total Activity, External Approach (ICD-10-PCS; principal; 2020-03-17)
DX: A41.9 Sepsis, unspecified organism (principal); N17.0 Acute kidney failure with tubular necrosis; I21.4 Non-ST elevation (NSTEMI) myocardial infarction; J18.9 Pneumonia, unspecified organism; S22.41XA Multiple fractures of ribs, right side, initial encounter for closed fracture; N39.0 Urinary tract infection, site not specified; I50.32 Chronic diastolic (congestive) heart failure; E87.2 Acidosis; F31.30 Bipolar disorder, current episode depressed, mild or moderate severity, unspecified; I48.19 Other persistent atrial fibrillation; Z68.42 Body mass index [BMI] 45.0-49.9, adult; F25.0 Schizoaffective disorder, bipolar type; R65.20 Severe sepsis without septic shock; R31.9 Hematuria, unspecified; T79.6XXA Traumatic ischemia of muscle, initial encounter; I48.91 Unspecified atrial fibrillation; E83.41 Hypermagnesemia; E11.65 Type 2 diabetes mellitus with hyperglycemia; E87.8 Other disorders of electrolyte and fluid balance, not elsewhere classified; E78.5 Hyperlipidemia, unspecified; E11.42 Type 2 diabetes mellitus with diabetic polyneuropathy; I11.0 Hypertensive heart disease with heart failure; E11.69 Type 2 diabetes mellitus with other specified complication; E66.9 Obesity, unspecified; I70.90 Unspecified atherosclerosis; F41.9 Anxiety disorder, unspecified; F43.21 Adjustment disorder with depressed mood; R07.89 Other chest pain; E11.51 Type 2 diabetes mellitus with diabetic peripheral angiopathy without gangrene; B35.1 Tinea unguium; S90.412A Abrasion, left great toe, initial encounter; X58.XXXA Exposure to other specified factors, initial encounter; Y93.89 Activity, other specified; Y92.89 Other specified places as the place of occurrence of the external cause; Y99.8 Other external cause status; Z88.0 Allergy status to penicillin; Z88.8 Allergy status to other drugs, medicaments and biological substances; E86.0 Dehydration; W19.XXXA Unspecified fall, initial encounter

== ENCOUNTER 2020-04-01 15:54 | Inpatient (IN) | payer OTHER ==
[~2020-04-01] VITALS: Ht 177.8 cm; Wt 148.8 kg
[~2020-04-01 15:54] MED LIST changes: +ASPIRIN ADULT L81 M2 PO; +LEVAQUIN750 M1 PO; +LEVOFLOXACIN750 M2 PO; +METOPROLOL SUCC25 M2 PO
[2020-04-01 16:10] VITALS: BP 100/56
[2020-04-01 16:31] VITALS: BP 100/72
[2020-04-01 17:03] LABS: BASO % 0.4 % (0.0-1.0); EOS # 0.1 10*3/uL (0.0-0.4); EOS % 0.8 % (1.0-4.0); HEMATOCRIT 39.5 % (42.0-52.0); LYMPH # 1.4 10*3/uL (1.3-4.4); LYMPH % 18.6 % (27.0-41.0); MEAN CORPUSCULAR HGB 30.2 pg (27.0-31.0); MEAN CORPUSCULAR HGB CONC 32.2 g/dl (33.0-37.0); MEAN PLATELET VOLUME 9.4 fl (9.6-12.3); MONO # 0.8 10*3/uL (0.1-1.0); MONO % 11.2 % (3.0-9.0); NEUT # 5.2 10*3/uL (2.3-7.9); NEUT % 68.7 % (47.0-73.0); PLATELET COUNT AUTOMATED 296 10*3/uL (130-400); RED CELL DISTRI WIDTH 14.6 % (0-14.5); WHITE BLOOD COUNT 7.5 10*3/uL (4.8-10.8)
[2020-04-01 17:14] LABS: ACT PARTIAL THROMBO TIME 27.1 SECONDS (20.0-32.1); INTERNATIONAL NORM RATIO 1.1 (2.0-3.5)
[2020-04-01 17:21] VITALS: BP 103/58
[2020-04-01 17:21] LABS: ALBUMIN 2.2 gm/dl (3.1-4.5); BUN 20 mg/dl (7-24); CHLORIDE 108 mmol/L (98-107); CREATININE 0.89 mg/dL (0.70-1.30); POTASSIUM 4.4 mmol/L (3.5-5.1); SGOT/AST 14 IU/L (3-35); SGPT/ALT 12 U/L (12-78); SODIUM 142 mmol/L (136-145)
[2020-04-01 17:22] LABS: ALKALINE PHOSPHATASE 99 U/L (45-117); TROPONIN I < 0.015 ng/ml (<0.045)
[2020-04-01 18:18] VITALS: BP 100/50
[2020-04-01 18:20] VITALS: BP 92/49
[2020-04-01 20:00] VITALS: BP 105/70
[2020-04-01 20:30] LABS: BODY FLUID WBC 1339 /uL
[2020-04-01 21:18] LABS: BF LYMPHOCYTES 46 %; BF MACROPHAGES 11 %; BF MONOCYTES 20 %; BF NEUTROPHILS 23 %
[2020-04-02] VITALS: BP 99/54
[2020-04-02 06:45] LABS: BASO % 0.5 % (0.0-1.0); EOS # 0.1 10*3/uL (0.0-0.4); EOS % 2.4 % (1.0-4.0); HEMATOCRIT 38.7 % (42.0-52.0); LYMPH # 1.4 10*3/uL (1.3-4.4); LYMPH % 23.9 % (27.0-41.0); MEAN CELL VOLUME 96.3 fl (80.0-94.0); MEAN CORPUSCULAR HGB 29.6 pg (27.0-31.0); MEAN CORPUSCULAR HGB CONC 30.7 g/dl (33.0-37.0); MONO # 0.8 10*3/uL (0.1-1.0); MONO % 13.1 % (3.0-9.0); NEUT # 3.6 10*3/uL (2.3-7.9); NEUT % 59.8 % (47.0-73.0); PLATELET COUNT AUTOMATED 276 10*3/uL (130-400); RED BLOOD COUNT 4.02 10*6/uL (4.50-5.90); RED CELL DISTRI WIDTH 14.5 % (0-14.5)
[2020-04-02 07:12] LABS: ALKALINE PHOSPHATASE 94 U/L (45-117); BUN 19 mg/dl (7-24); CHLORIDE 107 mmol/L (98-107); CREATININE 0.75 mg/dL (0.70-1.30); POTASSIUM 3.9 mmol/L (3.5-5.1); SGOT/AST 14 IU/L (3-35); SGPT/ALT 10 U/L (12-78); SODIUM 140 mmol/L (136-145); TOTAL PROTEIN 6.2 gm/dL (6.4-8.2)
[2020-04-02 12:00] VITALS: BP 112/72
[2020-04-02 16:26] VITALS: BP 102/50
[2020-04-02 17:43] VITALS: BP 112/60
[2020-04-02 20:00] VITALS: BP 102/47
[2020-04-03] VITALS: BP 95/52
[2020-04-03 06:19] LABS: BASO % 0.4 % (0.0-1.0); EOS # 0.2 10*3/uL (0.0-0.4); HEMATOCRIT 41.7 % (42.0-52.0); LYMPH # 1.5 10*3/uL (1.3-4.4); LYMPH % 19.3 % (27.0-41.0); MEAN CELL VOLUME 97.7 fl (80.0-94.0); MEAN CORPUSCULAR HGB 30.2 pg (27.0-31.0); MEAN CORPUSCULAR HGB CONC 30.9 g/dl (33.0-37.0); MEAN PLATELET VOLUME 10.1 fl (9.6-12.3); MONO # 0.9 10*3/uL (0.1-1.0); MONO % 11.6 % (3.0-9.0); NEUT % 66.3 % (47.0-73.0); PLATELET COUNT AUTOMATED 264 10*3/uL (130-400); RED BLOOD COUNT 4.27 10*6/uL (4.50-5.90); RED CELL DISTRI WIDTH 14.2 % (0-14.5); WHITE BLOOD COUNT 7.6 10*3/uL (4.8-10.8)
[2020-04-03 09:02] VITALS: BP 106/52
[2020-04-03 12:00] VITALS: BP 96/57
[2020-04-03 16:00] VITALS: BP 117/83
[2020-04-03 20:00] VITALS: BP 107/54
[2020-04-04] VITALS: BP 114/66
[2020-04-04 06:07] LABS: BUN 16 mg/dl (7-24); CHLORIDE 105 mmol/L (98-107); CREATININE 0.65 mg/dL (0.70-1.30); POTASSIUM 3.7 mmol/L (3.5-5.1); SODIUM 139 mmol/L (136-145)
[2020-04-04 06:08] LABS: BASO % 0.4 % (0.0-1.0); EOS # 0.3 10*3/uL (0.0-0.4); EOS % 4.2 % (1.0-4.0); HEMATOCRIT 38.8 % (42.0-52.0); LYMPH # 1.9 10*3/uL (1.3-4.4); LYMPH % 23.9 % (27.0-41.0); MEAN CELL VOLUME 96.3 fl (80.0-94.0); MEAN CORPUSCULAR HGB CONC 31.2 g/dl (33.0-37.0); MEAN PLATELET VOLUME 9.8 fl (9.6-12.3); MONO # 0.9 10*3/uL (0.1-1.0); MONO % 11.5 % (3.0-9.0); NEUT # 4.7 10*3/uL (2.3-7.9); NEUT % 59.6 % (47.0-73.0); PLATELET COUNT AUTOMATED 271 10*3/uL (130-400); RED BLOOD COUNT 4.03 10*6/uL (4.50-5.90); RED CELL DISTRI WIDTH 13.8 % (0-14.5); WHITE BLOOD COUNT 7.9 10*3/uL (4.8-10.8)
[2020-04-04 08:00] VITALS: BP 98/58
[2020-04-04 12:00] VITALS: BP 136/95
[2020-04-04 14:39] LABS: ABG BASE EXCESS 7.1 mmol/L (-2.0-2.0); ARTERIAL BLOOD GAS PH 7.424 (7.35-7.45)
[2020-04-04 16:00] VITALS: BP 94/62
[2020-04-04 20:00] VITALS: BP 96/65
[2020-04-05] VITALS: BP 91/50
[2020-04-05 06:23] LABS: BUN 15 mg/dl (7-24); CHLORIDE 102 mmol/L (98-107); CREATININE 0.59 mg/dL (0.70-1.30); POTASSIUM 3.8 mmol/L (3.5-5.1); SODIUM 143 mmol/L (136-145)
[2020-04-05 06:31] LABS: BASO % 0.5 % (0.0-1.0); EOS # 0.2 10*3/uL (0.0-0.4); EOS % 3.7 % (1.0-4.0); HEMATOCRIT 38.5 % (42.0-52.0); LYMPH # 1.6 10*3/uL (1.3-4.4); LYMPH % 26.2 % (27.0-41.0); MEAN CELL VOLUME 96.3 fl (80.0-94.0); MEAN CORPUSCULAR HGB 29.8 pg (27.0-31.0); MEAN CORPUSCULAR HGB CONC 30.9 g/dl (33.0-37.0); MEAN PLATELET VOLUME 10.1 fl (9.6-12.3); MONO # 0.8 10*3/uL (0.1-1.0); MONO % 12.6 % (3.0-9.0); NEUT # 3.5 10*3/uL (2.3-7.9); NEUT % 56.7 % (47.0-73.0); PLATELET COUNT AUTOMATED 266 10*3/uL (130-400); RED CELL DISTRI WIDTH 13.7 % (0-14.5); WHITE BLOOD COUNT 6.2 10*3/uL (4.8-10.8)
[2020-04-05 07:54] VITALS: BP 96/62
[2020-04-05 12:00] VITALS: BP 87/45
[2020-04-05 16:00] VITALS: BP 94/45
[2020-04-05 20:00] VITALS: BP 104/49
[2020-04-06] VITALS: BP 94/54
[2020-04-06 06:56] LABS: BASO % 0.5 % (0.0-1.0); EOS # 0.2 10*3/uL (0.0-0.4); EOS % 3.8 % (1.0-4.0); HEMATOCRIT 39.9 % (42.0-52.0); LYMPH # 1.6 10*3/uL (1.3-4.4); LYMPH % 25.2 % (27.0-41.0); MEAN CELL VOLUME 94.8 fl (80.0-94.0); MEAN CORPUSCULAR HGB 29.9 pg (27.0-31.0); MEAN CORPUSCULAR HGB CONC 31.6 g/dl (33.0-37.0); MEAN PLATELET VOLUME 9.7 fl (9.6-12.3); MONO # 0.9 10*3/uL (0.1-1.0); MONO % 13.7 % (3.0-9.0); NEUT # 3.6 10*3/uL (2.3-7.9); NEUT % 56.5 % (47.0-73.0); PLATELET COUNT AUTOMATED 307 10*3/uL (130-400); RED BLOOD COUNT 4.21 10*6/uL (4.50-5.90); RED CELL DISTRI WIDTH 13.6 % (0-14.5); WHITE BLOOD COUNT 6.4 10*3/uL (4.8-10.8)
[2020-04-06 07:24] LABS: ALBUMIN 1.7 gm/dl (3.1-4.5); BUN 13 mg/dl (7-24); CHLORIDE 101 mmol/L (98-107); CREATININE 0.64 mg/dL (0.70-1.30); POTASSIUM 3.8 mmol/L (3.5-5.1); SGOT/AST 16 IU/L (3-35); SGPT/ALT 8 U/L (12-78); SODIUM 138 mmol/L (136-145); TOTAL PROTEIN 6.1 gm/dL (6.4-8.2)
[2020-04-06 07:25] LABS: ALKALINE PHOSPHATASE 79 U/L (45-117)
[2020-04-06 09:28] VITALS: BP 104/63
[2020-04-06 12:00] VITALS: BP 116/68
[2020-04-06 16:00] VITALS: BP 97/46
[2020-04-06 20:00] VITALS: BP 108/68
[2020-04-07] VITALS: BP 109/58
[2020-04-07 06:57] LABS: ALBUMIN 1.8 gm/dl (3.1-4.5); ALKALINE PHOSPHATASE 80 U/L (45-117); BUN 14 mg/dl (7-24); CHLORIDE 104 mmol/L (98-107); CREATININE 0.69 mg/dL (0.70-1.30); POTASSIUM 4.1 mmol/L (3.5-5.1); SGOT/AST 19 IU/L (3-35); SGPT/ALT 10 U/L (12-78); SODIUM 139 mmol/L (136-145); TOTAL PROTEIN 6.2 gm/dL (6.4-8.2)
[2020-04-07 08:00] VITALS: BP 120/63
[2020-04-07 12:00] VITALS: BP 84/47
[2020-04-07] MEDS ORDERED: LASIX40 MG PO (12:22)
[2020-04-07] MEDS ORDERED: LEVOFLOXACIN750 M2 PO (12:27)
== END 2020-04-07 16:19 | disposition home health service (06) | DRG 291 ==
LOC: ED 15:54 → 4E 17:08 → EDHOLD 17:08 → 4E 18:06
PROVIDERS: Emergency Medicine; Internal Medicine Critical Care Medicine; Registered Nurse; Student in an Organized Health Care Education/Training Program; ADMIT Emergency Medicine
PROC: 0W993ZZ Drainage of Right Pleural Cavity, Percutaneous Approach (ICD-10-PCS; 2020-04-01)
PROC: 0W9930Z Drainage of Right Pleural Cavity with Drainage Device, Percutaneous Approach (ICD-10-PCS; principal; 2020-04-02)
DX: I11.0 Hypertensive heart disease with heart failure (principal); E43 Unspecified severe protein-calorie malnutrition; J96.01 Acute respiratory failure with hypoxia; J18.9 Pneumonia, unspecified organism; I27.81 Cor pulmonale (chronic); J94.2 Hemothorax; R65.10 Systemic inflammatory response syndrome (SIRS) of non-infectious origin without acute organ dysfunction; E87.2 Acidosis; J91.8 Pleural effusion in other conditions classified elsewhere; I48.21 Permanent atrial fibrillation; Z68.42 Body mass index [BMI] 45.0-49.9, adult; E66.2 Morbid (severe) obesity with alveolar hypoventilation; I50.33 Acute on chronic diastolic (congestive) heart failure; L89.301 Pressure ulcer of unspecified buttock, stage 1; I89.0 Lymphedema, not elsewhere classified; D64.9 Anemia, unspecified; E87.8 Other disorders of electrolyte and fluid balance, not elsewhere classified; E11.65 Type 2 diabetes mellitus with hyperglycemia; G25.81 Restless legs syndrome; M19.90 Unspecified osteoarthritis, unspecified site; E11.42 Type 2 diabetes mellitus with diabetic polyneuropathy; F43.21 Adjustment disorder with depressed mood; E11.69 Type 2 diabetes mellitus with other specified complication; I70.90 Unspecified atherosclerosis; R32 Unspecified urinary incontinence; F41.1 Generalized anxiety disorder; I25.10 Atherosclerotic heart disease of native coronary artery without angina pectoris; S90.415A Abrasion, left lesser toe(s), initial encounter; S90.414A Abrasion, right lesser toe(s), initial encounter; X58.XXXA Exposure to other specified factors, initial encounter; M50.30 Other cervical disc degeneration, unspecified cervical region; F25.0 Schizoaffective disorder, bipolar type; E78.5 Hyperlipidemia, unspecified; Z20.828 Contact with and (suspected) exposure to other viral communicable diseases; Y93.89 Activity, other specified; Y92.89 Other specified places as the place of occurrence of the external cause; Y99.8 Other external cause status; Z86.711 Personal history of pulmonary embolism; Z87.81 Personal history of (healed) traumatic fracture; Z79.01 Long term (current) use of anticoagulants; Z86.718 Personal history of other venous thrombosis and embolism; I25.2 Old myocardial infarction; Z88.0 Allergy status to penicillin; Z88.1 Allergy status to other antibiotic agents; Z90.49 Acquired absence of other specified parts of digestive tract; Z79.82 Long term (current) use of aspirin; Z79.899 Other long term (current) drug therapy; Z79.84 Long term (current) use of oral hypoglycemic drugs

== ENCOUNTER 2020-04-20 10:56 | Observation (INO) | payer OTHER ==
[~2020-04-20] VITALS: Ht 182.8 cm; Wt 138.9 kg
[2020-04-20 11:04] VITALS: BP 92/51
[2020-04-20 11:48] LABS: BASO % 0.5 % (0.0-1.0); EOS # 0.1 10*3/uL (0.0-0.4); EOS % 1.4 % (1.0-4.0); HEMATOCRIT 40.8 % (42.0-52.0); LYMPH # 1.9 10*3/uL (1.3-4.4); LYMPH % 30.3 % (27.0-41.0); MEAN CELL VOLUME 92.3 fl (80.0-94.0); MEAN CORPUSCULAR HGB 29.9 pg (27.0-31.0); MEAN CORPUSCULAR HGB CONC 32.4 g/dl (33.0-37.0); MEAN PLATELET VOLUME 9.9 fl (9.6-12.3); MONO # 0.7 10*3/uL (0.1-1.0); MONO % 11.3 % (3.0-9.0); NEUT # 3.5 10*3/uL (2.3-7.9); PLATELET COUNT AUTOMATED 242 10*3/uL (130-400); RED BLOOD COUNT 4.42 10*6/uL (4.50-5.90); RED CELL DISTRI WIDTH 13.5 % (0-14.5); WHITE BLOOD COUNT 6.3 10*3/uL (4.8-10.8)
[2020-04-20 12:04] LABS: ALBUMIN 2.4 gm/dl (3.1-4.5); ALKALINE PHOSPHATASE 93 U/L (45-117); BUN 26 mg/dl (7-24); CHLORIDE 102 mmol/L (98-107); CREATININE 1.11 mg/dL (0.70-1.30); LIPASE 82 U/L (73-393); POTASSIUM 3.3 mmol/L (3.5-5.1); SGOT/AST 17 IU/L (3-35); SGPT/ALT 11 U/L (12-78); SODIUM 139 mmol/L (136-145); TOTAL PROTEIN 6.6 gm/dL (6.4-8.2)
[2020-04-20 12:06] LABS: TROPONIN I < 0.015 ng/ml (<0.045)
[2020-04-20 12:17] LABS: VALPROIC ACID (DEPAKENE) 46.4 ug/ml (50-100)
[2020-04-20 13:19] VITALS: BP 92/50
[2020-04-20 14:00] VITALS: BP 106/68
[2020-04-20 14:30] VITALS: BP 110/72; BP 110/73
[2020-04-20 16:00] VITALS: BP 110/73
[2020-04-20 20:00] VITALS: BP 112/60
[2020-04-21] VITALS: BP 90/50
[2020-04-21 05:07] LABS: BUN 23 mg/dl (7-24); CHLORIDE 106 mmol/L (98-107); CREATININE 0.88 mg/dL (0.70-1.30); POTASSIUM 3.4 mmol/L (3.5-5.1); SODIUM 141 mmol/L (136-145)
[2020-04-21 06:15] LABS: BASO % 0.6 % (0.0-1.0); EOS # 0.1 10*3/uL (0.0-0.4); EOS % 1.4 % (1.0-4.0); HEMATOCRIT 39.8 % (42.0-52.0); LYMPH # 1.9 10*3/uL (1.3-4.4); LYMPH % 30.4 % (27.0-41.0); MEAN CORPUSCULAR HGB 29.2 pg (27.0-31.0); MEAN CORPUSCULAR HGB CONC 31.4 g/dl (33.0-37.0); MEAN PLATELET VOLUME 10.6 fl (9.6-12.3); MONO # 0.8 10*3/uL (0.1-1.0); NEUT # 3.5 10*3/uL (2.3-7.9); NEUT % 55.3 % (47.0-73.0); PLATELET COUNT AUTOMATED 235 10*3/uL (130-400); RED BLOOD COUNT 4.28 10*6/uL (4.50-5.90); RED CELL DISTRI WIDTH 13.7 % (0-14.5); WHITE BLOOD COUNT 6.3 10*3/uL (4.8-10.8)
[2020-04-21 12:00] VITALS: BP 124/65
[2020-04-21 16:00] VITALS: BP 95/54
[2020-04-21 20:00] VITALS: BP 95/53
[2020-04-22] VITALS: BP 77/56
[2020-04-22 03:35] VITALS: BP 106/64
[2020-04-22 06:41] LABS: BASO % 0.5 % (0.0-1.0); EOS # 0.2 10*3/uL (0.0-0.4); EOS % 2.5 % (1.0-4.0); HEMATOCRIT 38.9 % (42.0-52.0); LYMPH % 30.9 % (27.0-41.0); MEAN CELL VOLUME 92.6 fl (80.0-94.0); MEAN CORPUSCULAR HGB 29.8 pg (27.0-31.0); MEAN CORPUSCULAR HGB CONC 32.1 g/dl (33.0-37.0); MEAN PLATELET VOLUME 9.9 fl (9.6-12.3); MONO # 0.7 10*3/uL (0.1-1.0); MONO % 10.2 % (3.0-9.0); NEUT # 3.5 10*3/uL (2.3-7.9); NEUT % 55.4 % (47.0-73.0); PLATELET COUNT AUTOMATED 223 10*3/uL (130-400); RED CELL DISTRI WIDTH 13.8 % (0-14.5); WHITE BLOOD COUNT 6.4 10*3/uL (4.8-10.8)
[2020-04-22 06:56] LABS: BUN 18 mg/dl (7-24); CHLORIDE 111 mmol/L (98-107); CREATININE 0.69 mg/dL (0.70-1.30); POTASSIUM 3.6 mmol/L (3.5-5.1); SODIUM 139 mmol/L (136-145)
[2020-04-22 08:00] VITALS: BP 116/61
[2020-04-22] MEDS ORDERED: LOPRESSOR25 MG PO (10:02)
[2020-04-22] MEDS ORDERED: LASIX20 MG PO (10:02)
[2020-04-22] MEDS ORDERED: MECLIZINE HYD12.5 MG PO (10:03)
[2020-04-22 12:00] VITALS: BP 111/41
== END 2020-04-22 15:50 | disposition home or self-care (01) ==
LOC: ED 10:56 → EDHOLD 13:24 → 4E 13:24
PROVIDERS: Emergency Medicine; Internal Medicine; ADMIT Internal Medicine
DX: R42 Dizziness and giddiness (principal); E87.6 Hypokalemia; E83.42 Hypomagnesemia; E43 Unspecified severe protein-calorie malnutrition; R00.0 Tachycardia, unspecified; R79.82 Elevated C-reactive protein (CRP); E78.5 Hyperlipidemia, unspecified; G25.81 Restless legs syndrome; I48.91 Unspecified atrial fibrillation; F31.10 Bipolar disorder, current episode manic without psychotic features, unspecified; E11.69 Type 2 diabetes mellitus with other specified complication; R32 Unspecified urinary incontinence; I10 Essential (primary) hypertension; M19.90 Unspecified osteoarthritis, unspecified site

== ENCOUNTER 2020-06-19 13:54 | Inpatient (IN) | payer OTHER ==
[~2020-06-19] VITALS: Ht 177.8 cm; Wt 139.9 kg
[~2020-06-19 13:54] MED LIST changes: +LOPRESSOR25 MG PO; +MECLIZINE HYD12.5 MG PO
[2020-06-19 14:24] VITALS: BP 81/37
[2020-06-19 14:28] LABS: HEMATOCRIT 40.4 % (42.0-52.0); MEAN CELL VOLUME 89.8 fl (80.0-94.0); MEAN CORPUSCULAR HGB 28.7 pg (27.0-31.0); MEAN CORPUSCULAR HGB CONC 31.9 g/dl (33.0-37.0); MEAN PLATELET VOLUME 10.3 fl (9.6-12.3); PLATELET COUNT AUTOMATED 169 10*3/uL (130-400); RED CELL DISTRI WIDTH 13.6 % (0-14.5); WHITE BLOOD COUNT 17.5 10*3/uL (4.8-10.8)
[2020-06-19 14:43] LABS: ALBUMIN 2.7 gm/dl (3.1-4.5); ALKALINE PHOSPHATASE 77 U/L (45-117); BUN 23 mg/dl (7-24); CHLORIDE 107 mmol/L (98-107); CREATININE 1.41 mg/dL (0.70-1.30); POTASSIUM 3.6 mmol/L (3.5-5.1); SGOT/AST 11 IU/L (3-35); SGPT/ALT 10 U/L (12-78); SODIUM 138 mmol/L (136-145); TOTAL PROTEIN 6.8 gm/dL (6.4-8.2)
[2020-06-19 14:51] LABS: PLATELET SUFFICIENCY NORMAL (NORMAL); TOTAL CELLS COUNTED 100 #CELLS
[2020-06-19 14:52] LABS: BURR CELLS MODERATE
--- NOTE | 2020-06-19 15:09 | NUR ---
PATIENT WOUND PICS TAKEN. PATIENT DID DENY SOME WOUND PICS. HE DID NOT WANT THEM TAKEN AND DENIED ANY OTHER WOUNDS OR AREAS WELL. A&OX4.
[2020-06-19 16:15] VITALS: BP 93/47
[2020-06-19 16:23] LABS: BILIRUBIN NEGATIVE; BLOOD 3+ (NEGATIVE); CLARITY CLOUDY (CLEAR); COLOR YELLOW (YELLOW); GLUCOSE 1+; KETONE TRACE; LEUKO ESTERASE 1+ (NEGATIVE); NITRITE NEGATIVE (NEGATIVE)
[2020-06-19 16:29] LABS: BACTERIA 2+; RBC TNTC rbc/hpf (0-2); WBC TNTC wbc/hpf (0-5)
[2020-06-19 18:26] VITALS: BP 100/53
[2020-06-19 18:40] VITALS: BP 123/73
--- NOTE | 2020-06-19 18:40 | NUR ---
A 60, admitted to , under the services of MINO Childers DO with a diagnosis of UTI,SEPSIS,PNEUMONIA. Chief complaint is SHORTNESS OF BREATH. Patient arrived via bed from ER. Monitor applied. Initial assessment completed. Vital signs taken and recorded. MINO CHILDERS DO notified of admission to the unit. Orders received. See assessment for past medical history, medications and allergies. Patient and/or family oriented to unit. [facility] visitation policy reviewed. Clothing/patient valuable form completed. LARISA FORREST
[2020-06-19 18:50] VITALS: BP 122/66
--- NOTE | 2020-06-19 19:46 | NUR ---
NURSE PRACTICTIONER COVERING FOR DR VILLASENOR SEES PT AT THIS TIME FOR ID CONSULT.
--- NOTE | 2020-06-19 19:59 | NUR ---
DR WHITNEY NOTIFIED OF PT WOUNDS. PHYSICIAN STATES THAT SHE WILL PLACE WOUND CARE ORDERS.
--- NOTE | 2020-06-19 20:00 | NUR ---
PATIENT RESTING IN BED. VOICES NO CONCERNS. ASSESSMENT COMPLETE. RESPS EASY AND REGULAR. 2L NC IN PLACE. CALL LIGHT WITHIN REACH.
--- NOTE | 2020-06-19 20:02 | NUR ---
PT UNABLE TO TELL THIS NURSE WHAT MEDICATIONS THAT HE TAKES AT HOME. PT STATES THAT HE USES [facility] IN [facility]. PHARMACY IS CLOSED AT THIS TIME AND OPENS 9AM ON SUNDAY. WILL NOTIFY NURSE ON PM SHIFT THAT PT MED REC WILL NEED UPDATED IN AM.
--- NOTE | 2020-06-19 22:36 | NUR ---
24 HR chart check completed.
[2020-06-19] MEDS ORDERED: LATANOPROST2.5 ML OP (22:47)
[2020-06-19] MEDS ORDERED: MECLIZINE HCL25 M2 PO (22:48)
--- NOTE | 2020-06-19 22:49 | NUR ---
TRIED TO UPDATE MED LIST USING PATIENTS CLAIM HISTORY PATIENT IS UNSURE WHAT MEDS HE TAKES. WILL HAVE AM NURSE CLARIFY WITH [facility] TOMORROW WHEN THEY OPEN AT 9 AM.
[2020-06-20] VITALS: BP 124/68
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
--- NOTE | 2020-06-20 05:18 | NUR ---
NOTIFIED PATIENT IN [facility]. NO NEW ORDERS RECEIVED.
[2020-06-20 06:03] LABS: BASO % 0.2 % (0.0-1.0); EOS % 0.2 % (1.0-4.0); HEMATOCRIT 38.8 % (42.0-52.0); LYMPH # 1.6 10*3/uL (1.3-4.4); LYMPH % 12.6 % (27.0-41.0); MEAN CELL VOLUME 91.5 fl (80.0-94.0); MEAN CORPUSCULAR HGB 28.8 pg (27.0-31.0); MEAN CORPUSCULAR HGB CONC 31.4 g/dl (33.0-37.0); MONO # 1.1 10*3/uL (0.1-1.0); MONO % 8.9 % (3.0-9.0); NEUT # 9.7 10*3/uL (2.3-7.9); NEUT % 77.7 % (47.0-73.0); PLATELET COUNT AUTOMATED 145 10*3/uL (130-400); RED BLOOD COUNT 4.24 10*6/uL (4.50-5.90); RED CELL DISTRI WIDTH 13.6 % (0-14.5); WHITE BLOOD COUNT 12.5 10*3/uL (4.8-10.8)
[2020-06-20 06:07] LABS: ALBUMIN 2.4 gm/dl (3.1-4.5); ALKALINE PHOSPHATASE 73 U/L (45-117); BUN 20 mg/dl (7-24); CHLORIDE 110 mmol/L (98-107); CHOLESTEROL 93 mg/dL (<200); CREATININE 0.81 mg/dL (0.70-1.30); POTASSIUM 3.7 mmol/L (3.5-5.1); SGOT/AST 19 IU/L (3-35); SGPT/ALT 9 U/L (12-78); SODIUM 141 mmol/L (136-145); TOTAL PROTEIN 6.4 gm/dL (6.4-8.2); TRIGLYCERIDES 89 mg/dl (<150); VLDL CHOLESTEROL 18 mg/dL (6-40)
[2020-06-20 06:12] LABS: HDL CHOLESTEROL 38 mg/dl (40-60); LDL CHOLESTEROL 37 mg/dL (9-159); THYROID STIM HORMONE (HS) 0.595 uIU/ml (0.358-4.75)
[2020-06-20 06:20] LABS: ACT PARTIAL THROMBO TIME 25.9 SECONDS (20.0-32.1); INTERNATIONAL NORM RATIO 1.1 (2.0-3.5)
--- NOTE | 2020-06-20 07:15 | NUR ---
ASSESSMENT COMPLETE WITHOUT INCIDENCE. PT HAS FLAT AFFECT AND STATES THAT HE IS "DEPRESSED". HE VOICES NO OTHER COMPLAINTS AT THIS TIME. RESPIRATIONS ARE REGULAR AND RELAXED, ON 2L NC. WILL CONTINUE TO MONITOR, CALL LIGHT WITHIN REACH
[2020-06-20] MEDS ORDERED: DEPAKOTE DR500 MG PO (09:09)
--- NOTE | 2020-06-20 09:12 | NUR ---
NOTIFIED DR RODGERS OF UPDATED MED LIST
--- NOTE | 2020-06-20 09:18 | NUR ---
DR BRITO IN TO SEE PATIENT
--- NOTE | 2020-06-20 09:19 | NUR ---
DR BRITO NOTIFED OF UPDATED MED LIST
[2020-06-20 09:24] LABS: VITAMIN D, 25-HYDROXY 54.9 ng/mL (30-100)
--- NOTE | 2020-06-20 10:51 | NUR ---
PT STATES THAT HE USES HIS EYEDROPS AT NIGHT, SO DOES NOT WANT IT AT 1000, WILL DO IT AT 2200 INSTEAD.
--- NOTE | 2020-06-20 10:55 | NUR ---
DR ALFONSO IN TO SEE PATIENT, STATES ITS OK FOR HIM TO TAKE EYE DROPS AT 2200 INSTEAD OF 1000, WILL CHANGE ORDER.
[2020-06-20 12:00] VITALS: BP 100/62
[2020-06-20 16:00] VITALS: BP 110/64
--- NOTE | 2020-06-20 19:30 | NUR ---
PATIENT RESTING IN BED. PATIENT APPEARS VERY ANXIOUS HE STATES THAT HIS IS FILING FOR A DIVORCE AND HE DOESN'T WANT HER TO DO THIS AND HE HAS NO IDEA WHERE HE IS GOING TO GO WHEN HE LEAVES HERE. TALKED WITH PATIENT AND CALMED HIM DOWN. PATIENT HAS A VERY FLAT AFFECT. VOICES NO OTHER CONCERNS. ASSESSMENT COMPLETE. RESPS EASY AND REGULAR ON 2L NC. CALL LIGHT WITHIN REACH.
[2020-06-20 20:00] VITALS: BP 109/66
--- NOTE | 2020-06-20 22:56 | NUR ---
24 HR chart check completed.
[2020-06-21] VITALS: BP 122/73
[2020-06-21 07:23] LABS: BUN 17 mg/dl (7-24); CHLORIDE 112 mmol/L (98-107); CREATININE 0.71 mg/dL (0.70-1.30); POTASSIUM 3.5 mmol/L (3.5-5.1); SODIUM 144 mmol/L (136-145)
[2020-06-21 07:25] LABS: BASO % 0.3 % (0.0-1.0); EOS # 0.2 10*3/uL (0.0-0.4); EOS % 3.2 % (1.0-4.0); HEMATOCRIT 37.2 % (42.0-52.0); LYMPH % 26.4 % (27.0-41.0); MEAN CELL VOLUME 92.3 fl (80.0-94.0); MEAN CORPUSCULAR HGB 29.3 pg (27.0-31.0); MEAN CORPUSCULAR HGB CONC 31.7 g/dl (33.0-37.0); MEAN PLATELET VOLUME 11.1 fl (9.6-12.3); MONO # 0.8 10*3/uL (0.1-1.0); MONO % 10.8 % (3.0-9.0); NEUT # 4.4 10*3/uL (2.3-7.9); PLATELET COUNT AUTOMATED 159 10*3/uL (130-400); RED BLOOD COUNT 4.03 10*6/uL (4.50-5.90); RED CELL DISTRI WIDTH 13.3 % (0-14.5); WHITE BLOOD COUNT 7.5 10*3/uL (4.8-10.8)
[2020-06-21 08:00] VITALS: BP 126/88
--- NOTE | 2020-06-21 08:14 | NUR ---
ASSESSMENT COMPLETE WITHOUT INCIDENCE. PT IS SITTING UP AT HIS BED EATING BREAKFAST. ONLY CONCERN IS WHERE HE IS GOING TO GO AFTER DISCHARGE, SO HE WANTS TO TALK TO TREATER. RESPIRATIONS RELAXED AND REGULAR, ON 2L NC. CALL LIGHT WITHIN REACH, WILL CONTINUE TO MONITOR
--- NOTE | 2020-06-21 09:00 | NUR ---
Water Resource Specialist in to talk to patient. Patient states lives at home with . There are 12 steps in the home. Physician: ana mccoy Pharmacy: [facility] health services: none Patient's level of ADLs: INDEPENDENT Patient has working utilities: all working DME: 2 cans/walker Follow-up physician's appointment after d/c: will be made by hospitalist nurse director upon discharge Does patient want to access PORTAL?: no Discharge plan discussed with patient, he states he lives at home with his , but she told him she is filing for a divorce and he will not have a place to live, discussed with him if the house if both of theirs and he stated no its her house, he stated he doesn't know where he will go when discharged, educted him that social and political studies professor will visit with him and help with a discharge plan, case management will follow. RODRIGO SCOTT
--- NOTE | 2020-06-21 09:11 | NUR ---
DIRECTOR OF MARKETING ATTEMPTED TO CALL THE PATIENTS ON BOTH NUMBERS, NO ANSWER. WILL ATTEMPT TO CALL BACK AT A LATER TIME.
--- NOTE | 2020-06-21 09:32 | NUR ---
SPEECH PATHOLOGY Nursing screen completed. There are no reports of acute communication or swallowing difficulty therefore speech pathology services are not warranted at this time. This dept. will be available if future needs arise. YULY WOLFF MSCCC-BIN FILLER
--- NOTE | 2020-06-21 09:54 | NUR ---
DR ESTEVEZ IN TO SEE PATIENT
--- NOTE | 2020-06-21 11:23 | NUR ---
PODIATRY IN TO SEE PATIENT
--- NOTE | 2020-06-21 11:42 | NUR ---
DIRECTOR GIFT FAXED REFERRAL TO [facility] TO BE REVIEWED. WILL NEED PT/OT EVALS AND C19.
[2020-06-21 12:00] VITALS: BP 130/89
--- NOTE | 2020-06-21 12:04 | NUR ---
BRITTON HAYES REQUESTED RN NOTES. DESTINATION COORDINATOR FAXED RN NOTES TO [facility] TO BE REVIEWED.
--- NOTE | 2020-06-21 13:05 | NUR ---
PER BRITTON HAYES, THERE ARE NOT OUT OF POCKET BENEFITS. PRIVATE PAY WOULD BE STARTING DAY 1 AND WOULD BE $195.00 A DAY. EMULSIFICATION OPERATOR ATTEMPTED TO CALL PATIENTS SPOUSE. EMULSIFICATION OPERATOR LEFT MESSAGE FOR RETURN CALL ON HOUSE PHONE AND NO VOICEMAIL WAS SET UP ON CELL PHONE. EMULSIFICATION OPERATOR FAXED REFERRAL TO [facility] FOR REVIEW.
--- NOTE | 2020-06-21 14:19 | NUR ---
FUNERAL HOME DIRECTOR RECEIVED MESSAGE TO RETURN CALL TO THIS PATIENTS . FUNERAL HOME DIRECTOR RETURNED CALL AND LEFT MESSAGE FOR HER TO RETURN CALL TO THIS FUNERAL HOME DIRECTOR.
--- NOTE | 2020-06-21 14:26 | NUR ---
PT STATES HE DOES NOT WANT THE HEEL PROTECTORS ON BECAUSE "THEY NEVER STAY ON HIM".
--- NOTE | 2020-06-21 14:47 | NUR ---
WEIGH AND CHARGE WORKER EMAILED REFERRAL TO [email or web address] FOR REVIEW BY DWIGHT CHADWICK.
--- NOTE | 2020-06-21 15:25 | NUR ---
SYED HEARD BACK FROM [facility], SHE IS SENDING THE REFERRAL TO A COUPLE OF FACILITIES TO LOOK AT THIS PATIENT. WILL FOLLOW UP WITH HER TOMORROW.
[2020-06-21 16:00] VITALS: BP 105/56
--- NOTE | 2020-06-21 19:30 | NUR ---
PATIENT RESTING IN BED. FLAT AFFECT. PATIENT STATES HE SPOKE TO HIS AND SHE SAID THAT SHE IS GOING TO GIVE HIM ANOTHER CHANCE AND ALLOW HIM BACK IN THE HOUSE, BUT HE ISN'T GOING TO GET HIS HOPES UP UNTIL IT HAPPENS. VOICES NO CONCERS. LEGS ARE LOOKING LESS RED TODAY. DENIES ANY PAIN OR SOB. 2.5L NC IN PLACE. ASSESSMENT COMPLETE. PATIENT STILL REFUSING TO WEAR HEEL PROTECTORS AT THIS TIME. EXPLAINED THE IMPORTANCE OF WEARING THEM BUT PATIENT STILL REFUSING. CALL LIGHT WITHIN REACH.
[2020-06-21 20:00] VITALS: BP 104/57
[2020-06-22] VITALS: BP 94/61
--- NOTE | 2020-06-22 02:27 | NUR ---
24 HR chart check completed.
--- NOTE | 2020-06-22 06:45 | NUR ---
IN PATIENTS ROOM AND TRIED TO GET BSG AT THIS TIME AND PATIENT STATES HE IS TIRED OF BEING WOKEN UP AND TO COME BACK LATER AND LET HIM SLEEP. WILL PASS THIS ON TO ONCOMING NURSE. PATIENT ALSO REFUSING DAILY WEIGHT.
--- NOTE | 2020-06-22 07:33 | NUR ---
RETAIL FIELD MERCHANDISER ATTEMPTED TO CONTACT PATIENT INSURANCE. THEY ARE CURRENTLY CLOSED. RETAIL FIELD MERCHANDISER WILL FOLLOW UP WITH THEM AT A LATER TIME.
[2020-06-22 08:00] VITALS: BP 126/50
--- NOTE | 2020-06-22 08:02 | NUR ---
PT SITTING UP AT SIDE OF BED. RESP-EASY AND REGULAR. BSG-120, SEE EMAR. CALL LIGHT IN REACH. OXYGEN IN USE. SEE SHIFT ASSESSMENT.
--- NOTE | 2020-06-22 08:32 | NUR ---
CONSUMER LENDER OBTAINED LIST OF SNF FROM INSURANCE. CONSUMER LENDER EMAILED REFERRAL TO [facility] FOR REVIEW. [facility] IS STILL REVIEWING REFERRAL.
--- NOTE | 2020-06-22 08:44 | NUR ---
DYE EXPERT SPOKE WITH THIS PATIENT VIA PHONE CALL. HE STATED HIS IS NOT GOING TO BE AVAIABLE TO TALK TO UNTIL AFTEER 5PM TODAY. DYE EXPERT CALLED AND LEFT MESSAGE TO RETURN THIS DYE EXPERT PHONE CALL ON THE HOME VOICEMAIL.
--- NOTE | 2020-06-22 08:55 | NUR ---
PT SITTING UP AT SIDE OF BED. RESP-EASY AND REGULAR. TOLERATED ROUTINE MED WITH NO PROBLEM. NO C/O AT THIS TIME. CALL LIGHT IN REACH. SEE SHIFT ASSESSMENT.
--- NOTE | 2020-06-22 08:59 | NUR ---
GRUBBER FAXED REFERRAL TO [facility] FOR REVIEW.
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
--- NOTE | 2020-06-22 10:23 | NUR ---
COSMETICS AND TOILETRIES SALESPERSON FAXED REFERRAL TO [facility] FOR RE[facility].
--- NOTE | 2020-06-22 11:02 | NUR ---
PHYSICIAN PRACTICE CONSULTANT FAXED REFERRAL TO [facility].
--- NOTE | 2020-06-22 11:06 | NUR ---
HAZARDOUS MATERIALS HANDLER FAXED REFERRAL TO [facility] FOR REVIEW.
--- NOTE | 2020-06-22 11:09 | NUR ---
Occupational Therapy evaluation completed on four with full evaluation to follow. Recommend occupational therapy per plan of care and SNF upon discharge. If refused, home with with 30/04 supervision assist. Thank you for this referral. Ashli Murray OTR/L
--- NOTE | 2020-06-22 11:24 | NUR ---
AUTO REFINISHER FAXED REFERRAL TO [facility] FOR REVIEW.
--- NOTE | 2020-06-22 11:32 | NUR ---
BUSINESS MANAGEMENT ANALYST FAXED REFERRAL TO [facility] FOR REVIEW.
--- NOTE | 2020-06-22 11:40 | NUR ---
HAZMAT TANKER DRIVER FAXED REFERRAL TO [facility] FOR REVIEW.
--- NOTE | 2020-06-22 11:56 | NUR ---
SINGING TELEGRAM PERFORMER FAXED REFERRAL TO [facility] FOR REVIEW.
[2020-06-22 12:00] VITALS: BP 162/60
--- NOTE | 2020-06-22 12:20 | NUR ---
PT SITTING UP AT SIDE OF BED. PODIATRY AT BEDSIDE. BSG-158, SEE EMAR. CALL LIGHT IN REACH.
--- NOTE | 2020-06-22 12:47 | NUR ---
PHYSICAL THERAPY Physical Therapy evaluation completed on 4th floor with full evaluation to follow. Recommend physical therapy per plan of care and SNF upon discharge. Thank you for this referral. Natan Venegas SPT Marsha Simms PT
--- NOTE | 2020-06-22 13:31 | NUR ---
GLASS SCIENCE ENGINEER FAXED ALL FACILITIES UPDATES INCLUDING PT/OT EVALS.
--- NOTE | 2020-06-22 13:33 | NUR ---
BARBER SHOP MANAGER RECEIVED PHONE CALL FROM [facility], THEY ARE ABLE TO ACCEPT THE PATIENT. THE REQUESTED THAT THE COVID RESULTS BE RETURNED BEFORE ADMITTING TO THE FACILITY.
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
--- NOTE | 2020-06-22 15:21 | NUR ---
STENCIL MAKER ATTEMPTED TO REACH PATIENTS . A MESSAGE WAS NOT LEFT ONE WAS LEFT EARLIER ASKING FOR A RETURN CALL.
[2020-06-22 16:00] VITALS: BP 100/75
--- NOTE | 2020-06-22 19:54 | NUR ---
IN TO ASSESS PATIENT. PATIENT SITTING ON SIDE OF BED. ALERT AND ORIENTED. PLEASANT AND COOPERATIVE. HAS NO COMPLAINTS AT THIS TIME. LUNGS ARE CLEAR T/O. PATIENT 97% ON ROOM AIR. EDEMA NOTED TO BLE. L>R. RIGHT IS DISCOLORED AND LEFT IS RED. 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 PATIENT IS WORRIED ABOUT IF THE HALFWAY WILL KICK HIM OUT ONTO THE STREETS HE STATES HE CANNOT WALK VERY FAR. REASSURED THE PATIENT THAT THE HALFWAY WILL MAKE SURE THAT HE HAS SOMEWHERE TO GO WHEN HE IS TO LEAVE THERE LONG HE DOESN'T DISCHARGE HIMSELF. PATIENT EATING SNACK AT THIS TIME. CALL LIGHT LEFT WITHIN REACH, WILL MONITOR
[2020-06-22 20:00] VITALS: BP 115/53
--- NOTE | 2020-06-22 21:19 | NUR ---
IN TO GIVE PATIENT HIS NIGHT TIME MEDICATIONS. PATIENT VERY EXCITED AT THIS TIME STATES THAT HE JUST GOT A CALL FROM HIS . HE STATED HE THOUGHT HIS WAS MAD AT HIM BUT IT TURNS OUT SHE WAS VERY BUSY TODAY AND WAS UNABLE TO TALK TO HIM ALL DAY. HE STATED SHE TOLD HIM LONG HE TRIES HIS HARDEST AND DOES WELL AT REHAB, THAT HE CAN COME HOME.
--- NOTE | 2020-06-22 22:48 | NUR ---
IV SITE LEAKING AND REDDENED AT THIS TIME. SITE DISCONTINUED AND NEW IV STARTED IN LEFT FOREARM # 22 GAUGE.IV VANCO REINFUSING AT THIS TIME. WILL CONTINUE TO MONITOR
[2020-06-23] VITALS: BP 113/67
--- NOTE | 2020-06-23 03:58 | NUR ---
PATIENT SLEEPING, NO DISTRESS NOTED. BREATHING IS EASY AND REGULAR. CALL LIGHT WITHIN REACH, WILL MONITOR
--- NOTE | 2020-06-23 04:21 | NUR ---
24 HR chart check completed.
--- NOTE | 2020-06-23 06:28 | NUR ---
PATIENT AT THIS TIME DEMANDING "WHITE BRIEFS". YELLING AT THIS NURSE ABOUT THE BRIEFS AND THAT IF HE DOESN'T GET THEM WE'RE GONNA HAVE A BIG MESS TO CLEAN UP BECAUSE HE'LL PROBABLY WET HIMSELF. ASKED PATIENT TO CALM DOWN AND STATED THAT HE NEVER ASKED THIS NURSE FOR THE BRIEFS UNTIL JUST NOW. AND ASKED THE PATIENT IF HE WET THE BED LAST NIGHT. HE STATED HE DIDN'T BUT THAT HE HAS BEEN LB AND MAKING IT TO THE BATHROOM IN TIME, BUT IF HE DOESN'T GET THE BRIEFS HE'S JUST GONNA WET THE BED. PATIENT PROVIDED BRIEFS PER REQUEST
[2020-06-23 08:00] VITALS: BP 94/50
--- NOTE | 2020-06-23 08:05 | NUR ---
PHYSICAL THERAPY Patient seen this am 1;1 for therapy visit and was resting supine in bed upon therapist arrival. Patient identified by name / and reports multiple pain c/o's of L LE 07/17, R knee pain 06/17. Patient also presents with L LE increased redness / edema and was joined by OT assistant infant toddler teacher for observation only this session. Patient needed MAX encouragement for active participation this morning, with repeated c/o's of [facility] during his stay here and not getting enough sleep. Patient transfers supine to sit EOB with CGA, needing a few minutes to collect himself, then completed sit to stand CGA, with use of std walker standing support. Patient ambulated 15'x 2 to bathroom, CGA, std walker, demonstrating slow, cautious, "step to" / antalgic gait pattern and returned to EOB sit with mild fatigue. Patient able to complete seated LAQ, AROM, x 10 reps each without c/o, demonstrating limited ROM R LE. Patient remained EOB sit as breakfast arrived with call light, tray table and bed alarm activated for safety. Will continue per POC as tolerated, total treatment time 15 minutes. Patient also stated no change in either pain c/o following treatment. Nash Arango ,FOREST FIRE PREVENTION SPECIALIST
--- NOTE | 2020-06-23 08:12 | NUR ---
OT NOTE Pt laying in bed agreeable to 15 minute OT session. Identified by name and date of with complaints of 9/10 right knee pain and 10/10 left leg pain. Transfer supine to EOB CGA. SBA to walker gown. Pt was educated on compensatory method to walker hospital socks. Pt was able to walker right sock at CGA but required maxA to walker left due to swelling and edema. Sitting balance good-. Pt completed BUE exercises at EOB with towel in all planes with moderate resistance X10. Sit-stand from EOB CGA with w/w. Functional mobility from EOB <> bathroom CGA with w/w. Tranferring on and off toilet CGA with grab bar and w/w. Pt was able to stand sink side unsupported to wash hands at CGA with w/w for safety. Standing balance good-. Pt left in bed with alarm active and call light in reach. Continue d/c recommnended SNF. JEFFREY Arreola/MACY Canales/Juan
[2020-06-23] MEDS ORDERED: Humalog SQ (08:58)
[2020-06-23] MEDS ORDERED: NYSTOP60 GM T (08:58)
[2020-06-23] MEDS ORDERED: KEFLEX500 M1 PO (09:00)
--- NOTE | 2020-06-23 09:03 | NUR ---
[facility] IS PENDING FOR [facility].
--- NOTE | 2020-06-23 10:01 | NUR ---
INFORMATION CLERK COMPLETED HENS.
--- NOTE | 2020-06-23 11:08 | NUR ---
SYED RECEIVED CALL FROM PATIENTS ELLA. TOOL GRINDER OPERATOR ASKED IF SHE HAD SPOKE TO HER , THIS PATIENT. SHE STATED YES, ABOUT HIM GOING TO REHAB. TOOL GRINDER OPERATOR EXPLAINED THE ACCEPTING FACILITY AND NOW JUST WAITING ON PRECERT. SHE IS AGREEABLE. TOOL GRINDER OPERATOR ANSWERED ALL QUESTIONS. TOOL GRINDER OPERATOR TO FOLLOW.
[2020-06-23 12:00] VITALS: BP 102/56
--- NOTE | 2020-06-23 15:48 | NUR ---
OCCUPATIONAL THERAPY CO-SIGN I approve of the Occupational Therapy notes written above. BELLA LOVE, OTR/L
[2020-06-23 16:00] VITALS: BP 105/55
[2020-06-23 20:00] VITALS: BP 131/72
--- NOTE | 2020-06-23 20:00 | NUR ---
IN TO ASSESS PATIENT. PATIENT SITTING UP IN BED. ALERT AND ORIENTED AND PLEASANT. PATIENT HAS NO COMPLAINTS AT THIS TIME BESIDES NOT GETTING TO GO TO REHAB TODAY. HE STATES HE'S ANXIOUS TO GET STARTED WITH HIS THERAPY THERE SO THAT HE CAN GET BACK HOME TO HIS . CALL LIGHT WITHIN REACH, WILL MONITOR
--- NOTE | 2020-06-23 23:44 | NUR ---
PATIENT SLEEPING, NO DISTRES NOTED. BREATHING IS EASY AND REGULAR. CALL LIGHT WITHIN REACH, WILL MONITOR
[2020-06-24] VITALS: BP 106/65
--- NOTE | 2020-06-24 00:58 | NUR ---
24 HR chart check completed.
--- NOTE | 2020-06-24 04:06 | NUR ---
PATIENT SLEEPING, NO DISTRESS NOTED. CALL LIGHT WITHIN REACH, WILL MONITOR
--- NOTE | 2020-06-24 07:57 | NUR ---
PRECERT HAS BEEN OBTAINED. PATIENT CAN GO TO [facility] TODAY IF MEDICALLY STABLE PRECERT IS ONLY GOOD FOR TODAY AND TOMORROW. BOTTOM POLISHER IS AWARE.
[2020-06-24 08:00] VITALS: BP 133/55
--- NOTE | 2020-06-24 08:21 | NUR ---
PRECERT HAS BEEN OBTAINED. PATIENT DISCHARGE IS ALREADY IN. SYED SPOKE WITH RN PORTIA, SYED ARRANGED FOR [facility] TO TRANSPORT THE PATIENT TO [place] TODAY AT 12PM. METAL FLOORING INSTALLER SPOKE WITH PATIENT ELLA, SHE IS AWARE. METAL FLOORING INSTALLER NOTIFIED SYED LYN TO FAX DEMOGRAPHICS TO [facility], SYED FAXED DISCHARGE ORDERS TO [facility].
--- NOTE | 2020-06-24 09:00 | NUR ---
OT NOTE Upon arrival pt was walking out of bathroom to EOB without socks/footwear and no assistive device. Pt stated" I dont want therapy I'm out of breath from walking in and out of bathroom". O2 read 98% at roomair. Pt strongly educated on wearing no slip socks and use of walker. Pt agreed to 10 minute OT session. Identified by name and date of with complaints of 6/10 pain in BLE. While at EOB pt completed BUE exercises with towel in all planes at maximum resistance X10 with CGA. Sitting balance was good-. No other tasks completed due to pt refusing since he is leaving at noon. Pt left on EOB with alarm active and call light in reach. Continue d/c recommended SNF. JEFFREY Gomes/MACY Canales/Juan
--- NOTE | 2020-06-24 10:00 | NUR ---
PT RESTING IN BED. RESP-EASY AND REGULAR. NO C/O AT THIS TIME. CALL LIGHT IN REACH.
--- NOTE | 2020-06-24 12:29 | NUR ---
Discharge instructions reviewed with patient/AMBULANCE. Patient receptive and verbalizes understanding. Follow-up care arranged. Written instructions given to patient/AMBULANCE. ESCORTED VIA AMBULANCE TO [facility]. [place] REMOVED. ELLA VEGA R
--- NOTE | 2020-06-25 07:25 | NUR ---
PHYSICAL THERAPY CO-SIGN I approve of the Physical Therapy notes written above. Marsha Simms PT
--- NOTE | 2020-06-28 10:10 | NUR ---
OCCUPATIONAL THERAPY CO-SIGN I approve of the Occupational Therapy notes written above. KERRY GUZMAN OTR/Juan
== END 2020-06-24 13:13 | disposition other institution (70) | DRG 871 ==
LOC: ED 13:54 → EDHOLD 17:13 → 4E 17:13
PROVIDERS: Emergency Medicine; Hospitalist; ADMIT Family Medicine; ATTEND Family Medicine
DX: A41.9 Sepsis, unspecified organism (principal); N17.0 Acute kidney failure with tubular necrosis; E43 Unspecified severe protein-calorie malnutrition; I50.33 Acute on chronic diastolic (congestive) heart failure; J18.9 Pneumonia, unspecified organism; N39.0 Urinary tract infection, site not specified; J90 Pleural effusion, not elsewhere classified; L03.116 Cellulitis of left lower limb; Z68.41 Body mass index [BMI] 40.0-44.9, adult; Y99.8 Other external cause status; G25.81 Restless legs syndrome; Z20.828 Contact with and (suspected) exposure to other viral communicable diseases; I25.10 Atherosclerotic heart disease of native coronary artery without angina pectoris; E78.5 Hyperlipidemia, unspecified; F31.9 Bipolar disorder, unspecified; E11.40 Type 2 diabetes mellitus with diabetic neuropathy, unspecified; R31.9 Hematuria, unspecified; E66.01 Morbid (severe) obesity due to excess calories; M19.90 Unspecified osteoarthritis, unspecified site; R65.20 Severe sepsis without septic shock; I48.0 Paroxysmal atrial fibrillation; I89.0 Lymphedema, not elsewhere classified; E11.69 Type 2 diabetes mellitus with other specified complication; F25.0 Schizoaffective disorder, bipolar type; D64.9 Anemia, unspecified; S80.812A Abrasion, left lower leg, initial encounter; E11.22 Type 2 diabetes mellitus with diabetic chronic kidney disease; I12.9 Hypertensive chronic kidney disease with stage 1 through stage 4 chronic kidney disease, or unspecified chronic kidney disease; I25.2 Old myocardial infarction; Z86.711 Personal history of pulmonary embolism; Z90.49 Acquired absence of other specified parts of digestive tract; Z86.2 Personal history of diseases of the blood and blood-forming organs and certain disorders involving the immune mechanism; Z88.0 Allergy status to penicillin; Z88.8 Allergy status to other drugs, medicaments and biological substances; Z79.4 Long term (current) use of insulin; X58.XXXA Exposure to other specified factors, initial encounter; Y93.89 Activity, other specified; Y92.89 Other specified places as the place of occurrence of the external cause

== ENCOUNTER 2020-11-09 16:43 | Inpatient (IN) | payer OTHER ==
[~2020-11-09] VITALS: Ht 177.8 cm; Wt 151.0 kg
[~2020-11-09 16:43] MED LIST changes: +Humalog SQ; +MECLIZINE HCL25 M2 PO; +NYSTOP60 GM T
[2020-11-09 16:51] VITALS: BP 95/40
[2020-11-09 17:15] LABS: HEMATOCRIT 42.5 % (42.0-52.0); LYMPH # 0.5 10*3/uL (1.3-4.4); LYMPH % 9.9 % (27.0-41.0); MEAN CELL VOLUME 92.8 fl (80.0-94.0); MEAN CORPUSCULAR HGB 29.3 pg (27.0-31.0); MEAN CORPUSCULAR HGB CONC 31.5 g/dl (33.0-37.0); MEAN PLATELET VOLUME 9.6 fl (9.6-12.3); MONO # 0.5 10*3/uL (0.1-1.0); MONO % 9.9 % (3.0-9.0); NEUT # 3.9 10*3/uL (2.3-7.9); PLATELET COUNT AUTOMATED 172 10*3/uL (130-400); RED BLOOD COUNT 4.58 10*6/uL (4.50-5.90); RED CELL DISTRI WIDTH 13.1 % (0-14.5); WHITE BLOOD COUNT 4.9 10*3/uL (4.8-10.8)
[2020-11-09 17:32] LABS: ACT PARTIAL THROMBO TIME 27.1 SECONDS (20.0-32.1)
[2020-11-09 18:00] LABS: ALBUMIN 3.1 gm/dl (3.1-4.5); CREATININE 1.97 mg/dL (0.70-1.30); POTASSIUM 4.4 mmol/L (3.5-5.1); TOTAL PROTEIN 7.4 gm/dL (6.4-8.2); TROPONIN I 0.018 ng/ml (<0.045)
[2020-11-09 21:15] VITALS: BP 97/52
[2020-11-09] MEDS ORDERED: NITROFURANTOIN100 M9 PO (21:30)
[2020-11-09] MEDS ORDERED: TAMSULOSIN HCL0.4 MG PO (21:31)
[2020-11-09] MEDS ORDERED: GLIPIZIDE10 M1 PO (21:35)
[2020-11-09] MEDS ORDERED: AMITRIPTYLINE25 MG PO (21:36)
[2020-11-09] MEDS ORDERED: ELIQUIS5 M1 PEG (21:39)
[2020-11-09 21:50] VITALS: BP 100/50
[2020-11-09] MEDS ORDERED: SIMVASTATIN40 MG PO (23:30)
[2020-11-10] VITALS (7 sets, daily range): BP systolic 92–118; BP diastolic 40–62
[2020-11-10 06:29] LABS: HEMATOCRIT 34.5 % (42.0-52.0); LYMPH # 0.9 10*3/uL (1.3-4.4); LYMPH % 21.7 % (27.0-41.0); MEAN CELL VOLUME 92.5 fl (80.0-94.0); MEAN CORPUSCULAR HGB 29.5 pg (27.0-31.0); MEAN CORPUSCULAR HGB CONC 31.9 g/dl (33.0-37.0); MONO # 0.7 10*3/uL (0.1-1.0); MONO % 16.7 % (3.0-9.0); NEUT # 2.4 10*3/uL (2.3-7.9); NEUT % 61.1 % (47.0-73.0); PLATELET COUNT AUTOMATED 152 10*3/uL (130-400); RED BLOOD COUNT 3.73 10*6/uL (4.50-5.90); RED CELL DISTRI WIDTH 13.1 % (0-14.5)
[2020-11-10 06:36] LABS: ALBUMIN 2.5 gm/dl (3.1-4.5); ALKALINE PHOSPHATASE 71 U/L (45-117); BUN 35 mg/dl (7-24); CHLORIDE 106 mmol/L (98-107); CREATININE 1.28 mg/dL (0.70-1.30); SGOT/AST 30 IU/L (3-35); SGPT/ALT 15 U/L (12-78); SODIUM 141 mmol/L (136-145)
[2020-11-10 06:46] LABS: VALPROIC ACID (DEPAKENE) 32.1 ug/ml (50-100)
[2020-11-10 16:42] LABS: BILIRUBIN Negative (Negative); BLOOD 1+ (Negative); CLARITY Clear (Clear); COLOR Yellow (Yellow); GLUCOSE Negative (Negative); KETONE 1+ (Negative); LEUKO ESTERASE Negative (Negative); NITRITE Negative (Negative); SPECIFIC GRAVITY 1.025 (1.001-1.030); UROBILINOGEN 0.2 E.U./dl (0.0-1.0)
[2020-11-10 16:48] LABS: BACTERIA 1+; EPITHELIAL CELLS 0-2; MUCOUS TRACE; RBC 21-30 rbc/hpf (0-2)
[2020-11-11] VITALS (11 sets, daily range): BP systolic 102–130; BP diastolic 41–83
[2020-11-11 06:16] LABS: HEMATOCRIT 32.3 % (42.0-52.0); LYMPH # 0.9 10*3/uL (1.3-4.4); LYMPH % 19.5 % (27.0-41.0); MEAN CELL VOLUME 92.8 fl (80.0-94.0); MEAN CORPUSCULAR HGB 29.6 pg (27.0-31.0); MEAN CORPUSCULAR HGB CONC 31.9 g/dl (33.0-37.0); MEAN PLATELET VOLUME 10.3 fl (9.6-12.3); MONO # 0.6 10*3/uL (0.1-1.0); NEUT % 67.3 % (47.0-73.0); PLATELET COUNT AUTOMATED 133 10*3/uL (130-400); RED BLOOD COUNT 3.48 10*6/uL (4.50-5.90); WHITE BLOOD COUNT 4.4 10*3/uL (4.8-10.8)
[2020-11-11 06:46] LABS: ALBUMIN 2.3 gm/dl (3.1-4.5); ALKALINE PHOSPHATASE 64 U/L (45-117); CHLORIDE 105 mmol/L (98-107); CREATININE 0.86 mg/dL (0.70-1.30); POTASSIUM 4.1 mmol/L (3.5-5.1); SGOT/AST 38 IU/L (3-35); SGPT/ALT 14 U/L (12-78); SODIUM 138 mmol/L (136-145)
[2020-11-11 06:55] LABS: VALPROIC ACID (DEPAKENE) 46.5 ug/ml (50-100)
[2020-11-11 06:57] LABS: BUN 18 mg/dl (7-24)
[2020-11-11 18:33] LABS: HEMATOCRIT 31.1 % (42.0-52.0)
[2020-11-12] VITALS: BP 105/56
[2020-11-12 05:18] LABS: BUN 20 mg/dl (7-24); CHLORIDE 107 mmol/L (98-107); CREATININE 0.96 mg/dL (0.70-1.30); POTASSIUM 4.5 mmol/L (3.5-5.1); SODIUM 139 mmol/L (136-145)
[2020-11-12 06:12] LABS: HEMATOCRIT 28.5 % (42.0-52.0); LYMPH # 0.9 10*3/uL (1.3-4.4); LYMPH % 14.2 % (27.0-41.0); MEAN CELL VOLUME 95.3 fl (80.0-94.0); MEAN CORPUSCULAR HGB 30.1 pg (27.0-31.0); MEAN CORPUSCULAR HGB CONC 31.6 g/dl (33.0-37.0); MEAN PLATELET VOLUME 10.7 fl (9.6-12.3); MONO # 0.8 10*3/uL (0.1-1.0); MONO % 11.9 % (3.0-9.0); NEUT # 4.7 10*3/uL (2.3-7.9); NEUT % 73.6 % (47.0-73.0); PLATELET COUNT AUTOMATED 116 10*3/uL (130-400); RED BLOOD COUNT 2.99 10*6/uL (4.50-5.90); RED CELL DISTRI WIDTH 12.9 % (0-14.5); WHITE BLOOD COUNT 6.4 10*3/uL (4.8-10.8)
[2020-11-12 08:00] VITALS: BP 111/64
[2020-11-12 12:00] VITALS: BP 95/63
[2020-11-12 16:00] VITALS: BP 119/75
[2020-11-12 20:00] VITALS: BP 105/60
[2020-11-13] VITALS: BP 100/60
[2020-11-13 06:08] LABS: HEMATOCRIT 27.2 % (42.0-52.0); LYMPH # 0.7 10*3/uL (1.3-4.4); LYMPH % 11.1 % (27.0-41.0); MEAN CELL VOLUME 94.8 fl (80.0-94.0); MEAN CORPUSCULAR HGB CONC 31.6 g/dl (33.0-37.0); MEAN PLATELET VOLUME 10.4 fl (9.6-12.3); MONO # 0.5 10*3/uL (0.1-1.0); MONO % 7.5 % (3.0-9.0); NEUT % 80.9 % (47.0-73.0); PLATELET COUNT AUTOMATED 126 10*3/uL (130-400); RED BLOOD COUNT 2.87 10*6/uL (4.50-5.90); RED CELL DISTRI WIDTH 12.6 % (0-14.5); WHITE BLOOD COUNT 6.1 10*3/uL (4.8-10.8)
[2020-11-13 06:24] LABS: BUN 16 mg/dl (7-24); CHLORIDE 105 mmol/L (98-107); CREATININE 0.74 mg/dL (0.70-1.30); POTASSIUM 4.2 mmol/L (3.5-5.1); SODIUM 139 mmol/L (136-145)
[2020-11-13 08:00] VITALS: BP 118/60
[2020-11-13 12:00] VITALS: BP 144/60
[2020-11-13 16:00] VITALS: BP 125/60
[2020-11-13 20:00] VITALS: BP 107/61
[2020-11-13 23:53] LABS: ABG BASE EXCESS 4.5 mmol/L (-2.0-2.0); ARTERIAL BLOOD GAS PH 7.43 (7.35-7.45)
[2020-11-14] VITALS (8 sets, daily range): BP systolic 100–112; BP diastolic 48–72
[2020-11-14 06:52] LABS: BASO % 0.2 % (0.0-1.0); HEMATOCRIT 28.3 % (42.0-52.0); LYMPH # 0.7 10*3/uL (1.3-4.4); MEAN CELL VOLUME 95.6 fl (80.0-94.0); MEAN CORPUSCULAR HGB 29.7 pg (27.0-31.0); MEAN CORPUSCULAR HGB CONC 31.1 g/dl (33.0-37.0); MEAN PLATELET VOLUME 10.4 fl (9.6-12.3); MONO # 0.5 10*3/uL (0.1-1.0); MONO % 9.2 % (3.0-9.0); NEUT # 3.7 10*3/uL (2.3-7.9); NEUT % 75.6 % (47.0-73.0); PLATELET COUNT AUTOMATED 156 10*3/uL (130-400); RED BLOOD COUNT 2.96 10*6/uL (4.50-5.90); RED CELL DISTRI WIDTH 12.7 % (0-14.5); WHITE BLOOD COUNT 4.9 10*3/uL (4.8-10.8)
[2020-11-14 07:03] LABS: BUN 20 mg/dl (7-24); CHLORIDE 106 mmol/L (98-107); CREATININE 0.83 mg/dL (0.70-1.30); POTASSIUM 3.8 mmol/L (3.5-5.1); SODIUM 139 mmol/L (136-145)
[2020-11-14 19:03] LABS: ABG BASE EXCESS 4.5 mmol/L (-2.0-2.0); ARTERIAL BLOOD GAS PH 7.414 (7.35-7.45)
[2020-11-15] VITALS (42 sets, daily range): BP systolic 80–184; BP diastolic 44–78
[2020-11-15 06:11] LABS: BUN 21 mg/dl (7-24); CHLORIDE 104 mmol/L (98-107); CREATININE 0.62 mg/dL (0.70-1.30); POTASSIUM 3.8 mmol/L (3.5-5.1); SODIUM 140 mmol/L (136-145)
[2020-11-15 06:15] LABS: HEMATOCRIT 26.9 % (42.0-52.0); LYMPH # 0.5 10*3/uL (1.3-4.4); LYMPH % 13.1 % (27.0-41.0); MEAN CELL VOLUME 93.7 fl (80.0-94.0); MEAN CORPUSCULAR HGB 29.6 pg (27.0-31.0); MEAN CORPUSCULAR HGB CONC 31.6 g/dl (33.0-37.0); MEAN PLATELET VOLUME 10.4 fl (9.6-12.3); MONO # 0.4 10*3/uL (0.1-1.0); MONO % 11.3 % (3.0-9.0); NEUT # 2.8 10*3/uL (2.3-7.9); NEUT % 74.3 % (47.0-73.0); PLATELET COUNT AUTOMATED 179 10*3/uL (130-400); RED BLOOD COUNT 2.87 10*6/uL (4.50-5.90); RED CELL DISTRI WIDTH 12.8 % (0-14.5); WHITE BLOOD COUNT 3.8 10*3/uL (4.8-10.8)
[2020-11-15 12:20] LABS: ABG BASE EXCESS 5.2 mmol/L (-2.0-2.0); ARTERIAL BLOOD GAS PH 7.428 (7.35-7.45)
[2020-11-15 14:40] LABS: ARTERIAL BLOOD GAS PH 7.401 (7.35-7.45)
[2020-11-15 15:45] LABS: BILIRUBIN Negative (Negative); BLOOD Negative (Negative); CLARITY Clear (Clear); COLOR Dark Yellow (Yellow); GLUCOSE 3+ (Negative); KETONE Trace (Negative); LEUKO ESTERASE Negative (Negative); NITRITE Negative (Negative); SPECIFIC GRAVITY 1.025 (1.001-1.030)
[2020-11-15 15:59] LABS: RBC 0-2 rbc/hpf (0-2)
[2020-11-15 17:21] LABS: ARTERIAL BLOOD GAS PH 7.412 (7.35-7.45)
[2020-11-15 19:58] LABS: ABG BASE EXCESS 6.6 mmol/L (-2.0-2.0); ARTERIAL BLOOD GAS PH 7.435 (7.35-7.45)
[2020-11-16] VITALS (71 sets, daily range): BP systolic 88–132; BP diastolic 45–72
[2020-11-16 05:58] LABS: ALBUMIN 1.7 gm/dl (3.1-4.5); ALKALINE PHOSPHATASE 73 U/L (45-117); BUN 25 mg/dl (7-24); CHLORIDE 104 mmol/L (98-107); CREATININE 0.71 mg/dL (0.70-1.30); LDH 315 U/L (87-241); POTASSIUM 3.9 mmol/L (3.5-5.1); SGOT/AST 43 IU/L (3-35); SGPT/ALT 20 U/L (12-78); SODIUM 139 mmol/L (136-145); TOTAL PROTEIN 5.5 gm/dL (6.4-8.2)
[2020-11-16 06:07] LABS: VALPROIC ACID (DEPAKENE) 43.1 ug/ml (50-100)
[2020-11-16 06:23] LABS: BASO % 0.2 % (0.0-1.0); LYMPH # 0.9 10*3/uL (1.3-4.4); LYMPH % 15.6 % (27.0-41.0); MEAN CELL VOLUME 93.4 fl (80.0-94.0); MEAN CORPUSCULAR HGB 30.1 pg (27.0-31.0); MEAN CORPUSCULAR HGB CONC 32.2 g/dl (33.0-37.0); MEAN PLATELET VOLUME 10.5 fl (9.6-12.3); MONO # 0.6 10*3/uL (0.1-1.0); MONO % 10.1 % (3.0-9.0); NEUT % 71.6 % (47.0-73.0); NUCLEATED RED BLOOD CELL 0.5 % (0.0-0.0); RED BLOOD COUNT 2.89 10*6/uL (4.50-5.90); RED CELL DISTRI WIDTH 12.7 % (0-14.5); WHITE BLOOD COUNT 5.6 10*3/uL (4.8-10.8)
[2020-11-16 06:28] LABS: PLATELET COUNT AUTOMATED 256 10*3/uL (130-400)
[2020-11-16 08:10] LABS: ABG BASE EXCESS 7.9 mmol/L (-2.0-2.0); ARTERIAL BLOOD GAS PH 7.477 (7.35-7.45)
[2020-11-16 12:17] LABS: ABG BASE EXCESS 7.8 mmol/L (-2.0-2.0); ARTERIAL BLOOD GAS PH 7.457 (7.35-7.45)
[2020-11-17 04:00] VITALS: BP 109/58
[2020-11-17 06:20] LABS: HEMATOCRIT 25.5 % (42.0-52.0); MEAN CELL VOLUME 94.8 fl (80.0-94.0); MEAN CORPUSCULAR HGB 30.1 pg (27.0-31.0); MEAN CORPUSCULAR HGB CONC 31.8 g/dl (33.0-37.0); MEAN PLATELET VOLUME 9.9 fl (9.6-12.3); NUCLEATED RED BLOOD CELL 0.1 10*3/uL (0.0-0.0); PLATELET COUNT AUTOMATED 272 10*3/uL (130-400); RED BLOOD COUNT 2.69 10*6/uL (4.50-5.90); RED CELL DISTRI WIDTH 12.8 % (0-14.5); WHITE BLOOD COUNT 7.2 10*3/uL (4.8-10.8)
[2020-11-17 06:48] LABS: ALBUMIN 1.6 gm/dl (3.1-4.5); ALKALINE PHOSPHATASE 72 U/L (45-117); BUN 24 mg/dl (7-24); CHLORIDE 107 mmol/L (98-107); CREATININE 0.67 mg/dL (0.70-1.30); LDH 320 U/L (87-241); POTASSIUM 3.7 mmol/L (3.5-5.1); SGOT/AST 31 IU/L (3-35); SGPT/ALT 16 U/L (12-78); SODIUM 143 mmol/L (136-145); TOTAL PROTEIN 5.1 gm/dL (6.4-8.2)
[2020-11-17 07:00] LABS: OVALOCYTES FEW; PLATELET SUFFICIENCY NORMAL (NORMAL); POLYCHROMASIA SLIGHT; TOTAL CELLS COUNTED 100 #CELLS
[2020-11-17 07:51] LABS: ABG BASE EXCESS 9.5 mmol/L (-2.0-2.0); ARTERIAL BLOOD GAS PH 7.447 (7.35-7.45)
[2020-11-17 08:00] VITALS: BP 104/49
[2020-11-17 12:00] VITALS: BP 117/50
[2020-11-17 16:00] VITALS: BP 111/54
[2020-11-17 18:24] LABS: ABG BASE EXCESS 6.2 mmol/L (-2.0-2.0); ARTERIAL BLOOD GAS PH 7.502 (7.35-7.45); ARTERIAL BLOOD GAS PO2 77.7 (80-90)
[2020-11-17 20:00] VITALS: BP 105/52
[2020-11-18] VITALS: BP 99/62
[2020-11-18 04:00] VITALS: BP 101/62
[2020-11-18 05:42] LABS: ALBUMIN 1.6 gm/dl (3.1-4.5); ALKALINE PHOSPHATASE 76 U/L (45-117); BUN 21 mg/dl (7-24); CHLORIDE 108 mmol/L (98-107); CREATININE 0.61 mg/dL (0.70-1.30); LDH 380 U/L (87-241); POTASSIUM 3.7 mmol/L (3.5-5.1); SGOT/AST 33 IU/L (3-35); SGPT/ALT 13 U/L (12-78); SODIUM 145 mmol/L (136-145); TOTAL PROTEIN 5.3 gm/dL (6.4-8.2); TRIGLYCERIDES 162 mg/dl (<150)
[2020-11-18 06:05] LABS: HEMATOCRIT 25.8 % (42.0-52.0); MEAN CELL VOLUME 95.9 fl (80.0-94.0); MEAN CORPUSCULAR HGB 30.1 pg (27.0-31.0); MEAN CORPUSCULAR HGB CONC 31.4 g/dl (33.0-37.0); MEAN PLATELET VOLUME 10.4 fl (9.6-12.3); NUCLEATED RED BLOOD CELL 0.1 10*3/uL (0.0-0.0); NUCLEATED RED BLOOD CELL 1.3 % (0.0-0.0); PLATELET COUNT AUTOMATED 304 10*3/uL (130-400); RED BLOOD COUNT 2.69 10*6/uL (4.50-5.90); WHITE BLOOD COUNT 8.3 10*3/uL (4.8-10.8)
[2020-11-18 06:54] LABS: PLATELET SUFFICIENCY NORMAL (NORMAL); POLYCHROMASIA SLIGHT; TOTAL CELLS COUNTED 100 #CELLS
[2020-11-18 07:33] LABS: ABG BASE EXCESS 7.2 mmol/L (-2.0-2.0); ARTERIAL BLOOD GAS PH 7.497 (7.35-7.45); ARTERIAL BLOOD GAS PO2 86.7 (80-90)
[2020-11-18 08:00] VITALS: BP 94/52
[2020-11-18 12:00] VITALS: BP 96/42
[2020-11-18 16:00] VITALS: BP 112/86
[2020-11-18 20:00] VITALS: BP 117/61
[2020-11-19] VITALS: BP 96/45
[2020-11-19 04:00] VITALS: BP 107/62
[2020-11-19 06:06] LABS: ALBUMIN 1.6 gm/dl (3.1-4.5); ALKALINE PHOSPHATASE 78 U/L (45-117); BUN 21 mg/dl (7-24); CHLORIDE 107 mmol/L (98-107); CREATININE 0.53 mg/dL (0.70-1.30); POTASSIUM 3.7 mmol/L (3.5-5.1); SGOT/AST 32 IU/L (3-35); SGPT/ALT 16 U/L (12-78); SODIUM 144 mmol/L (136-145); TOTAL PROTEIN 5.3 gm/dL (6.4-8.2)
[2020-11-19 06:09] LABS: HEMATOCRIT 26.3 % (42.0-52.0); MEAN CORPUSCULAR HGB 29.6 pg (27.0-31.0); MEAN CORPUSCULAR HGB CONC 30.8 g/dl (33.0-37.0); MEAN PLATELET VOLUME 10.1 fl (9.6-12.3); NUCLEATED RED BLOOD CELL 0.1 10*3/uL (0.0-0.0); PLATELET COUNT AUTOMATED 319 10*3/uL (130-400); RED BLOOD COUNT 2.74 10*6/uL (4.50-5.90); RED CELL DISTRI WIDTH 13.3 % (0-14.5)
[2020-11-19 07:21] LABS: PLATELET SUFFICIENCY NORMAL (NORMAL); POLYCHROMASIA SLIGHT; TOTAL CELLS COUNTED 100 #CELLS
[2020-11-19 08:00] VITALS: BP 109/50
[2020-11-19 08:29] LABS: ABG BASE EXCESS 7.8 mmol/L (-2.0-2.0); ARTERIAL BLOOD GAS PH 7.475 (7.35-7.45)
[2020-11-19 11:30] LABS: ABG BASE EXCESS 5.4 mmol/L (-2.0-2.0); ARTERIAL BLOOD GAS PH 7.488 (7.35-7.45); ARTERIAL BLOOD GAS PO2 80.5 (80-90)
[2020-11-19 12:00] VITALS: BP 108/60
[2020-11-19 16:00] VITALS: BP 100/52
[2020-11-19 20:00] VITALS: BP 104/56
[2020-11-20] VITALS: BP 96/52
[2020-11-20 04:04] VITALS: BP 102/52
[2020-11-20 05:49] LABS: ALBUMIN 1.7 gm/dl (3.1-4.5); ALKALINE PHOSPHATASE 90 U/L (45-117); BUN 18 mg/dl (7-24); CHLORIDE 103 mmol/L (98-107); CPK 35 U/L (39-308); CREATININE 0.64 mg/dL (0.70-1.30); LDH 373 U/L (87-241); SGOT/AST 26 IU/L (3-35); SGPT/ALT 17 U/L (12-78); SODIUM 139 mmol/L (136-145); TOTAL PROTEIN 5.8 gm/dL (6.4-8.2)
[2020-11-20 06:17] LABS: HEMATOCRIT 30.2 % (42.0-52.0); MEAN CELL VOLUME 98.4 fl (80.0-94.0); MEAN CORPUSCULAR HGB CONC 30.5 g/dl (33.0-37.0); MEAN PLATELET VOLUME 10.3 fl (9.6-12.3); NUCLEATED RED BLOOD CELL 0.1 10*3/uL (0.0-0.0); PLATELET COUNT AUTOMATED 331 10*3/uL (130-400); RED BLOOD COUNT 3.07 10*6/uL (4.50-5.90); RED CELL DISTRI WIDTH 14.2 % (0-14.5); WHITE BLOOD COUNT 10.5 10*3/uL (4.8-10.8)
[2020-11-20 07:06] LABS: OVALOCYTES FEW; POLYCHROMASIA SLIGHT; TOTAL CELLS COUNTED 100 #CELLS
[2020-11-20 07:07] LABS: PLATELET SUFFICIENCY NORMAL (NORMAL); SCHISTOCYTES FEW; TOXIC GRANULATION SLIGHT
[2020-11-20 08:00] VITALS: BP 109/53
[2020-11-20 11:38] LABS: ABG BASE EXCESS 6.3 mmol/L (-2.0-2.0); ARTERIAL BLOOD GAS PH 7.491 (7.35-7.45); ARTERIAL BLOOD GAS PO2 63.4 (80-90)
[2020-11-20 12:00] VITALS: BP 94/62
[2020-11-20 15:10] LABS: ABG BASE EXCESS 6.9 mmol/L (-2.0-2.0); ARTERIAL BLOOD GAS PH 7.495 (7.35-7.45); ARTERIAL BLOOD GAS PO2 67.5 (80-90)
[2020-11-20 16:00] VITALS: BP 104/54
[2020-11-20 20:00] VITALS: BP 107/57
[2020-11-20 20:48] LABS: ABG BASE EXCESS 3.6 mmol/L (-2.0-2.0); ARTERIAL BLOOD GAS PH 7.461 (7.35-7.45); ARTERIAL BLOOD GAS PO2 68.2 (80-90)
[2020-11-21] VITALS: BP 106/58
[2020-11-21 04:02] VITALS: BP 103/58
[2020-11-21 06:08] LABS: HEMATOCRIT 27.9 % (42.0-52.0); MEAN CELL VOLUME 97.6 fl (80.0-94.0); MEAN CORPUSCULAR HGB 29.4 pg (27.0-31.0); MEAN CORPUSCULAR HGB CONC 30.1 g/dl (33.0-37.0); MEAN PLATELET VOLUME 9.5 fl (9.6-12.3); NUCLEATED RED BLOOD CELL 0.3 % (0.0-0.0); PLATELET COUNT AUTOMATED 272 10*3/uL (130-400); RED BLOOD COUNT 2.86 10*6/uL (4.50-5.90); RED CELL DISTRI WIDTH 14.3 % (0-14.5); WHITE BLOOD COUNT 7.8 10*3/uL (4.8-10.8)
[2020-11-21 06:40] LABS: ALBUMIN 1.5 gm/dl (3.1-4.5); BUN 16 mg/dl (7-24); CHLORIDE 103 mmol/L (98-107); CREATININE 0.51 mg/dL (0.70-1.30); POTASSIUM 4.5 mmol/L (3.5-5.1); SGOT/AST 20 IU/L (3-35); SGPT/ALT 13 U/L (12-78); SODIUM 142 mmol/L (136-145); TOTAL PROTEIN 5.5 gm/dL (6.4-8.2)
[2020-11-21 06:42] LABS: ALKALINE PHOSPHATASE 80 U/L (45-117); LDH 329 U/L (87-241)
[2020-11-21 06:45] LABS: CPK 22 U/L (39-308)
[2020-11-21 07:36] LABS: POLYCHROMASIA SLIGHT; TOTAL CELLS COUNTED 100 #CELLS
[2020-11-21 07:37] LABS: OVALOCYTES FEW; PLATELET SUFFICIENCY NORMAL (NORMAL)
[2020-11-21 07:54] LABS: ABG BASE EXCESS 8.3 mmol/L (-2.0-2.0); ARTERIAL BLOOD GAS PH 7.487 (7.35-7.45); ARTERIAL BLOOD GAS PO2 78.7 (80-90)
[2020-11-21 08:00] VITALS: BP 104/65
[2020-11-21 12:00] VITALS: BP 106/68
[2020-11-21 16:00] VITALS: BP 100/55
[2020-11-21 20:00] VITALS: BP 119/62
[2020-11-22] VITALS: BP 110/59
[2020-11-22 04:01] VITALS: BP 112/60
[2020-11-22 06:21] LABS: HEMATOCRIT 28.6 % (42.0-52.0); MEAN CELL VOLUME 95.3 fl (80.0-94.0); MEAN CORPUSCULAR HGB 29.3 pg (27.0-31.0); MEAN CORPUSCULAR HGB CONC 30.8 g/dl (33.0-37.0); MEAN PLATELET VOLUME 10.4 fl (9.6-12.3); PLATELET COUNT AUTOMATED 241 10*3/uL (130-400); RED CELL DISTRI WIDTH 14.2 % (0-14.5); WHITE BLOOD COUNT 9.6 10*3/uL (4.8-10.8)
[2020-11-22 06:37] LABS: CHLORIDE 104 mmol/L (98-107); POTASSIUM 4.3 mmol/L (3.5-5.1); SODIUM 137 mmol/L (136-145)
[2020-11-22 06:44] LABS: ALBUMIN 1.4 gm/dl (3.1-4.5); ALKALINE PHOSPHATASE 88 U/L (45-117); BUN 15 mg/dl (7-24); CPK 23 U/L (39-308); CREATININE 0.51 mg/dL (0.70-1.30); LDH 291 U/L (87-241); SGOT/AST 18 IU/L (3-35); SGPT/ALT 13 U/L (12-78); TOTAL PROTEIN 5.6 gm/dL (6.4-8.2)
[2020-11-22 07:22] LABS: PLATELET SUFFICIENCY NORMAL (NORMAL); POLYCHROMASIA SLIGHT; TOTAL CELLS COUNTED 100 #CELLS; TOXIC GRANULATION SLIGHT
[2020-11-22 07:23] LABS: BURR CELLS FEW
[2020-11-22 08:00] VITALS: BP 115/67
[2020-11-22 12:00] VITALS: BP 96/70
[2020-11-22 13:30] LABS: ABG BASE EXCESS 4.3 mmol/L (-2.0-2.0); ARTERIAL BLOOD GAS PH 7.466 (7.35-7.45); ARTERIAL BLOOD GAS PO2 70.8 (80-90)
[2020-11-22 16:00] VITALS: BP 110/53
[2020-11-22 20:00] VITALS: BP 105/62
[2020-11-23] VITALS: BP 102/59
[2020-11-23 04:00] VITALS: BP 110/62; BP 166/88
[2020-11-23 06:30] LABS: BASO % 0.3 % (0.0-1.0); EOS # 0.1 10*3/uL (0.0-0.4); EOS % 0.8 % (1.0-4.0); HEMATOCRIT 31.1 % (42.0-52.0); LYMPH # 1.4 10*3/uL (1.3-4.4); LYMPH % 15.5 % (27.0-41.0); MEAN CELL VOLUME 97.8 fl (80.0-94.0); MEAN CORPUSCULAR HGB 29.9 pg (27.0-31.0); MEAN CORPUSCULAR HGB CONC 30.5 g/dl (33.0-37.0); MEAN PLATELET VOLUME 10.3 fl (9.6-12.3); MONO # 0.6 10*3/uL (0.1-1.0); MONO % 6.6 % (3.0-9.0); NEUT # 6.9 10*3/uL (2.3-7.9); NEUT % 74.1 % (47.0-73.0); PLATELET COUNT AUTOMATED 253 10*3/uL (130-400); RED BLOOD COUNT 3.18 10*6/uL (4.50-5.90); RED CELL DISTRI WIDTH 14.6 % (0-14.5); WHITE BLOOD COUNT 9.3 10*3/uL (4.8-10.8)
[2020-11-23 06:51] LABS: BUN 15 mg/dl (7-24); CHLORIDE 103 mmol/L (98-107); CREATININE 0.51 mg/dL (0.70-1.30); POTASSIUM 4.4 mmol/L (3.5-5.1); SODIUM 138 mmol/L (136-145)
[2020-11-23 08:00] VITALS: BP 105/62
[2020-11-23 12:00] VITALS: BP 114/62
[2020-11-23 14:40] LABS: ABG BASE EXCESS 2.5 mmol/L (-2.0-2.0); ARTERIAL BLOOD GAS PH 7.449 (7.35-7.45)
[2020-11-23 16:00] VITALS: BP 106/59
[2020-11-23 20:00] VITALS: BP 115/64
[2020-11-24] VITALS: BP 107/67
[2020-11-24 04:00] VITALS: BP 122/68
[2020-11-24 07:43] LABS: BASO % 0.2 % (0.0-1.0); EOS % 0.3 % (1.0-4.0); HEMATOCRIT 29.6 % (42.0-52.0); LYMPH # 1.6 10*3/uL (1.3-4.4); MEAN CELL VOLUME 95.8 fl (80.0-94.0); MEAN CORPUSCULAR HGB 29.4 pg (27.0-31.0); MEAN CORPUSCULAR HGB CONC 30.7 g/dl (33.0-37.0); MEAN PLATELET VOLUME 9.1 fl (9.6-12.3); MONO # 0.6 10*3/uL (0.1-1.0); MONO % 5.5 % (3.0-9.0); NEUT # 8.8 10*3/uL (2.3-7.9); NEUT % 78.9 % (47.0-73.0); PLATELET COUNT AUTOMATED 244 10*3/uL (130-400); RED BLOOD COUNT 3.09 10*6/uL (4.50-5.90); RED CELL DISTRI WIDTH 14.7 % (0-14.5); WHITE BLOOD COUNT 11.1 10*3/uL (4.8-10.8)
[2020-11-24 07:55] LABS: ABG BASE EXCESS 3.2 mmol/L (-2.0-2.0); ARTERIAL BLOOD GAS PH 7.464 (7.35-7.45); ARTERIAL BLOOD GAS PO2 88.8 (80-90)
[2020-11-24 07:57] LABS: ALBUMIN 1.6 gm/dl (3.1-4.5); ALKALINE PHOSPHATASE 105 U/L (45-117); BUN 14 mg/dl (7-24); CHLORIDE 104 mmol/L (98-107); CREATININE 0.51 mg/dL (0.70-1.30); POTASSIUM 4.1 mmol/L (3.5-5.1); SGOT/AST 16 IU/L (3-35); SGPT/ALT 13 U/L (12-78); SODIUM 139 mmol/L (136-145); TOTAL PROTEIN 5.9 gm/dL (6.4-8.2)
[2020-11-24 08:00] VITALS: BP 118/65
[2020-11-24 12:00] VITALS: BP 107/59
[2020-11-24 16:00] VITALS: BP 121/67
[2020-11-24 20:00] VITALS: BP 112/60
[2020-11-25] VITALS: BP 111/75
[2020-11-25 04:00] VITALS: BP 106/46
[2020-11-25 06:18] LABS: BASO % 0.2 % (0.0-1.0); EOS % 0.2 % (1.0-4.0); HEMATOCRIT 29.5 % (42.0-52.0); LYMPH # 1.3 10*3/uL (1.3-4.4); LYMPH % 12.9 % (27.0-41.0); MEAN CELL VOLUME 95.8 fl (80.0-94.0); MEAN CORPUSCULAR HGB 29.2 pg (27.0-31.0); MEAN CORPUSCULAR HGB CONC 30.5 g/dl (33.0-37.0); MEAN PLATELET VOLUME 9.8 fl (9.6-12.3); MONO # 0.5 10*3/uL (0.1-1.0); MONO % 5.3 % (3.0-9.0); NEUT % 80.6 % (47.0-73.0); PLATELET COUNT AUTOMATED 274 10*3/uL (130-400); RED BLOOD COUNT 3.08 10*6/uL (4.50-5.90); RED CELL DISTRI WIDTH 14.7 % (0-14.5); WHITE BLOOD COUNT 9.9 10*3/uL (4.8-10.8)
[2020-11-25 06:28] LABS: ALBUMIN 1.6 gm/dl (3.1-4.5); BUN 17 mg/dl (7-24); CHLORIDE 106 mmol/L (98-107); CREATININE 0.51 mg/dL (0.70-1.30); POTASSIUM 4.1 mmol/L (3.5-5.1); SGOT/AST 12 IU/L (3-35); SGPT/ALT 14 U/L (12-78); SODIUM 139 mmol/L (136-145)
[2020-11-25 06:32] LABS: ALKALINE PHOSPHATASE 110 U/L (45-117); TOTAL PROTEIN 5.7 gm/dL (6.4-8.2)
[2020-11-25 07:35] LABS: ABG BASE EXCESS 1.6 mmol/L (-2.0-2.0); ARTERIAL BLOOD GAS PH 7.422 (7.35-7.45); ARTERIAL BLOOD GAS PO2 71.5 (80-90)
[2020-11-25 08:00] VITALS: BP 119/66
[2020-11-25 12:00] VITALS: BP 98/55
[2020-11-25 16:00] VITALS: BP 121/73
[2020-11-25 20:00] VITALS: BP 133/80
[2020-11-26] VITALS (10 sets, daily range): BP systolic 92–137; BP diastolic 46–76
[2020-11-26 06:12] LABS: BUN 17 mg/dl (7-24); CHLORIDE 108 mmol/L (98-107); CREATININE 0.64 mg/dL (0.70-1.30); POTASSIUM 4.3 mmol/L (3.5-5.1); SODIUM 142 mmol/L (136-145)
[2020-11-26 06:25] LABS: BASO % 0.2 % (0.0-1.0); EOS # 0.1 10*3/uL (0.0-0.4); EOS % 0.8 % (1.0-4.0); HEMATOCRIT 29.8 % (42.0-52.0); LYMPH # 1.5 10*3/uL (1.3-4.4); LYMPH % 17.3 % (27.0-41.0); MEAN CELL VOLUME 97.1 fl (80.0-94.0); MEAN CORPUSCULAR HGB 29.3 pg (27.0-31.0); MEAN CORPUSCULAR HGB CONC 30.2 g/dl (33.0-37.0); MONO # 0.5 10*3/uL (0.1-1.0); MONO % 5.3 % (3.0-9.0); NEUT # 6.7 10*3/uL (2.3-7.9); NEUT % 75.6 % (47.0-73.0); NUCLEATED RED BLOOD CELL 0.2 % (0.0-0.0); PLATELET COUNT AUTOMATED 288 10*3/uL (130-400); RED BLOOD COUNT 3.07 10*6/uL (4.50-5.90); RED CELL DISTRI WIDTH 15.1 % (0-14.5); WHITE BLOOD COUNT 8.9 10*3/uL (4.8-10.8)
[2020-11-26 07:45] LABS: ARTERIAL BLOOD GAS PH 7.453 (7.35-7.45); ARTERIAL BLOOD GAS PO2 57.4 (80-90)
[2020-11-26 18:20] LABS: ABG BASE EXCESS 3.6 mmol/L (-2.0-2.0); ARTERIAL BLOOD GAS PH 7.395 (7.35-7.45); ARTERIAL BLOOD GAS PO2 86.2 (80-90)
[2020-11-27] VITALS (12 sets, daily range): BP systolic 103–129; BP diastolic 54–84
[2020-11-27 07:18] LABS: BASO % 0.2 % (0.0-1.0); EOS # 0.1 10*3/uL (0.0-0.4); EOS % 1.4 % (1.0-4.0); HEMATOCRIT 28.7 % (42.0-52.0); LYMPH # 1.3 10*3/uL (1.3-4.4); LYMPH % 14.9 % (27.0-41.0); MEAN CELL VOLUME 98.6 fl (80.0-94.0); MEAN CORPUSCULAR HGB 29.2 pg (27.0-31.0); MEAN CORPUSCULAR HGB CONC 29.6 g/dl (33.0-37.0); MEAN PLATELET VOLUME 10.1 fl (9.6-12.3); MONO # 0.4 10*3/uL (0.1-1.0); MONO % 4.5 % (3.0-9.0); NEUT # 6.7 10*3/uL (2.3-7.9); NEUT % 78.2 % (47.0-73.0); PLATELET COUNT AUTOMATED 268 10*3/uL (130-400); RED BLOOD COUNT 2.91 10*6/uL (4.50-5.90); RED CELL DISTRI WIDTH 15.3 % (0-14.5); WHITE BLOOD COUNT 8.5 10*3/uL (4.8-10.8)
[2020-11-27 07:43] LABS: ALBUMIN 1.6 gm/dl (3.1-4.5); BUN 18 mg/dl (7-24); CHLORIDE 105 mmol/L (98-107); CREATININE 0.49 mg/dL (0.70-1.30); POTASSIUM 4.2 mmol/L (3.5-5.1); SGOT/AST 11 IU/L (3-35); SGPT/ALT 10 U/L (12-78); SODIUM 140 mmol/L (136-145)
[2020-11-27 07:45] LABS: ALKALINE PHOSPHATASE 117 U/L (45-117); CPK 18 U/L (39-308); LDH 334 U/L (87-241)
[2020-11-27 08:43] LABS: ABG BASE EXCESS 3.5 mmol/L (-2.0-2.0); ARTERIAL BLOOD GAS PH 7.382 (7.35-7.45); ARTERIAL BLOOD GAS PO2 87.2 (80-90)
[2020-11-27 12:32] LABS: BILIRUBIN Negative (Negative); BLOOD Negative (Negative); CLARITY Clear (Clear); COLOR Dark Yellow (Yellow); GLUCOSE 1+ (Negative); KETONE Trace (Negative); LEUKO ESTERASE Negative (Negative); NITRITE Negative (Negative); SPECIFIC GRAVITY >= 1.030 (1.001-1.030)
[2020-11-27 12:59] LABS: BACTERIA 1+; CALCIUM OXALATE CRYSTALS 1+
[2020-11-27 13:00] LABS: MUCOUS 1+
[2020-11-27 17:29] LABS: ABG BASE EXCESS 3.2 mmol/L (-2.0-2.0); ARTERIAL BLOOD GAS PO2 336.7 (80-90)
[2020-11-27 17:32] LABS: ARTERIAL BLOOD GAS PH 7.17 (7.35-7.45)
[2020-11-27 18:35] LABS: BUN 18 mg/dl (7-24); CHLORIDE 105 mmol/L (98-107); CREATININE 0.57 mg/dL (0.70-1.30); POTASSIUM 4.7 mmol/L (3.5-5.1); SODIUM 141 mmol/L (136-145)
[2020-11-27 20:14] LABS: ABG BASE EXCESS 3.7 mmol/L (-2.0-2.0); ARTERIAL BLOOD GAS PH 7.205 (7.35-7.45); ARTERIAL BLOOD GAS PO2 105.3 (80-90)
[2020-11-28] VITALS (12 sets, daily range): BP systolic 91–130; BP diastolic 50–89
[2020-11-28 05:42] LABS: ALBUMIN 1.5 gm/dl (3.1-4.5); BUN 22 mg/dl (7-24); CHLORIDE 104 mmol/L (98-107); CREATININE 0.49 mg/dL (0.70-1.30); POTASSIUM 5.2 mmol/L (3.5-5.1); SGOT/AST 10 IU/L (3-35); SGPT/ALT 12 U/L (12-78); SODIUM 138 mmol/L (136-145)
[2020-11-28 05:45] LABS: ALKALINE PHOSPHATASE 121 U/L (45-117); CPK 56 U/L (39-308); LDH 282 U/L (87-241); TOTAL PROTEIN 6.4 gm/dL (6.4-8.2)
[2020-11-28 06:23] LABS: BASO % 0.2 % (0.0-1.0); EOS % 0.1 % (1.0-4.0); HEMATOCRIT 30.6 % (42.0-52.0); LYMPH # 0.9 10*3/uL (1.3-4.4); LYMPH % 8.1 % (27.0-41.0); MEAN CELL VOLUME 98.1 fl (80.0-94.0); MEAN CORPUSCULAR HGB 29.8 pg (27.0-31.0); MEAN CORPUSCULAR HGB CONC 30.4 g/dl (33.0-37.0); MEAN PLATELET VOLUME 10.2 fl (9.6-12.3); MONO # 0.4 10*3/uL (0.1-1.0); MONO % 3.9 % (3.0-9.0); NEUT # 9.1 10*3/uL (2.3-7.9); NEUT % 87.2 % (47.0-73.0); PLATELET COUNT AUTOMATED 313 10*3/uL (130-400); RED BLOOD COUNT 3.12 10*6/uL (4.50-5.90); RED CELL DISTRI WIDTH 14.5 % (0-14.5); WHITE BLOOD COUNT 10.5 10*3/uL (4.8-10.8)
[2020-11-28 09:58] LABS: ABG BASE EXCESS 8.4 mmol/L (-2.0-2.0); ARTERIAL BLOOD GAS PH 7.398 (7.35-7.45); ARTERIAL BLOOD GAS PO2 134.9 (80-90)
[2020-11-28 13:14] LABS: ABG BASE EXCESS 8.5 mmol/L (-2.0-2.0); ARTERIAL BLOOD GAS PH 7.411 (7.35-7.45); ARTERIAL BLOOD GAS PO2 83.3 (80-90)
[2020-11-28 18:01] LABS: ABG BASE EXCESS 7.4 mmol/L (-2.0-2.0); ARTERIAL BLOOD GAS PH 7.358 (7.35-7.45); ARTERIAL BLOOD GAS PO2 100.7 (80-90)
[2020-11-29] VITALS (12 sets, daily range): BP systolic 102–134; BP diastolic 56–76
[2020-11-29 06:10] LABS: BASO % 0.2 % (0.0-1.0); EOS % 0.3 % (1.0-4.0); LYMPH # 1.2 10*3/uL (1.3-4.4); LYMPH % 13.3 % (27.0-41.0); MEAN CELL VOLUME 96.5 fl (80.0-94.0); MEAN CORPUSCULAR HGB 29.6 pg (27.0-31.0); MEAN CORPUSCULAR HGB CONC 30.7 g/dl (33.0-37.0); MEAN PLATELET VOLUME 10.3 fl (9.6-12.3); MONO # 0.5 10*3/uL (0.1-1.0); MONO % 5.9 % (3.0-9.0); NEUT # 7.3 10*3/uL (2.3-7.9); NEUT % 79.9 % (47.0-73.0); PLATELET COUNT AUTOMATED 307 10*3/uL (130-400); RED BLOOD COUNT 3.11 10*6/uL (4.50-5.90); RED CELL DISTRI WIDTH 14.3 % (0-14.5); WHITE BLOOD COUNT 9.1 10*3/uL (4.8-10.8)
[2020-11-29 06:16] LABS: ALBUMIN 1.5 gm/dl (3.1-4.5); BUN 25 mg/dl (7-24); CHLORIDE 103 mmol/L (98-107); POTASSIUM 4.9 mmol/L (3.5-5.1); SGOT/AST 14 IU/L (3-35); SGPT/ALT 10 U/L (12-78); SODIUM 141 mmol/L (136-145)
[2020-11-29 06:19] LABS: ALKALINE PHOSPHATASE 124 U/L (45-117); CPK 63 U/L (39-308); LDH 246 U/L (87-241); TOTAL PROTEIN 6.1 gm/dL (6.4-8.2)
[2020-11-29 08:00] LABS: ABG BASE EXCESS 8.4 mmol/L (-2.0-2.0); ARTERIAL BLOOD GAS PH 7.42 (7.35-7.45); ARTERIAL BLOOD GAS PO2 111.7 (80-90)
[2020-11-29 12:19] LABS: ABG BASE EXCESS 9.5 mmol/L (-2.0-2.0); ARTERIAL BLOOD GAS PH 7.42 (7.35-7.45)
[2020-11-30] VITALS (12 sets, daily range): BP systolic 87–127; BP diastolic 40–73
[2020-11-30 05:40] LABS: ALBUMIN 1.5 gm/dl (3.1-4.5); ALKALINE PHOSPHATASE 111 U/L (45-117); BUN 29 mg/dl (7-24); CHLORIDE 103 mmol/L (98-107); CREATININE 0.54 mg/dL (0.70-1.30); POTASSIUM 4.4 mmol/L (3.5-5.1); SGOT/AST 12 IU/L (3-35); SGPT/ALT 12 U/L (12-78); SODIUM 139 mmol/L (136-145); TOTAL PROTEIN 6.3 gm/dL (6.4-8.2)
[2020-11-30 06:30] LABS: BASO % 0.4 % (0.0-1.0); EOS % 0.5 % (1.0-4.0); HEMATOCRIT 29.7 % (42.0-52.0); LYMPH # 1.4 10*3/uL (1.3-4.4); LYMPH % 18.3 % (27.0-41.0); MEAN CELL VOLUME 96.7 fl (80.0-94.0); MEAN CORPUSCULAR HGB 28.7 pg (27.0-31.0); MEAN CORPUSCULAR HGB CONC 29.6 g/dl (33.0-37.0); MEAN PLATELET VOLUME 10.4 fl (9.6-12.3); MONO # 0.6 10*3/uL (0.1-1.0); MONO % 7.3 % (3.0-9.0); NEUT # 5.7 10*3/uL (2.3-7.9); NEUT % 73.2 % (47.0-73.0); PLATELET COUNT AUTOMATED 277 10*3/uL (130-400); RED BLOOD COUNT 3.07 10*6/uL (4.50-5.90); RED CELL DISTRI WIDTH 14.5 % (0-14.5); WHITE BLOOD COUNT 7.7 10*3/uL (4.8-10.8)
[2020-11-30 08:15] LABS: ABG BASE EXCESS 9.5 mmol/L (-2.0-2.0); ARTERIAL BLOOD GAS PH 7.454 (7.35-7.45); ARTERIAL BLOOD GAS PO2 95.4 (80-90)
[2020-11-30 14:02] LABS: ABG BASE EXCESS 10.6 mmol/L (-2.0-2.0); ARTERIAL BLOOD GAS PH 7.431 (7.35-7.45); ARTERIAL BLOOD GAS PO2 88.6 (80-90)
[2020-11-30 17:25] LABS: ABG BASE EXCESS 10.7 mmol/L (-2.0-2.0); ARTERIAL BLOOD GAS PH 7.438 (7.35-7.45); ARTERIAL BLOOD GAS PO2 76.8 (80-90)
[2020-12-01] VITALS (12 sets, daily range): BP systolic 95–115; BP diastolic 50–68
[2020-12-01 06:16] LABS: BASO % 0.3 % (0.0-1.0); EOS # 0.1 10*3/uL (0.0-0.4); EOS % 1.4 % (1.0-4.0); HEMATOCRIT 28.8 % (42.0-52.0); LYMPH # 1.4 10*3/uL (1.3-4.4); LYMPH % 22.2 % (27.0-41.0); MEAN CORPUSCULAR HGB 29.3 pg (27.0-31.0); MEAN CORPUSCULAR HGB CONC 30.2 g/dl (33.0-37.0); MEAN PLATELET VOLUME 10.3 fl (9.6-12.3); MONO # 0.5 10*3/uL (0.1-1.0); MONO % 7.2 % (3.0-9.0); NEUT # 4.3 10*3/uL (2.3-7.9); NEUT % 68.3 % (47.0-73.0); PLATELET COUNT AUTOMATED 264 10*3/uL (130-400); RED BLOOD COUNT 2.97 10*6/uL (4.50-5.90); RED CELL DISTRI WIDTH 14.5 % (0-14.5); WHITE BLOOD COUNT 6.3 10*3/uL (4.8-10.8)
[2020-12-01 06:29] LABS: CHLORIDE 103 mmol/L (98-107); POTASSIUM 4.2 mmol/L (3.5-5.1); SODIUM 139 mmol/L (136-145)
[2020-12-01 06:36] LABS: ALBUMIN 1.4 gm/dl (3.1-4.5); ALKALINE PHOSPHATASE 105 U/L (45-117); BUN 24 mg/dl (7-24); CREATININE 0.41 mg/dL (0.70-1.30); SGOT/AST 13 IU/L (3-35); SGPT/ALT 12 U/L (12-78); TOTAL PROTEIN 5.9 gm/dL (6.4-8.2)
[2020-12-01 08:00] LABS: ABG BASE EXCESS 9.3 mmol/L (-2.0-2.0); ARTERIAL BLOOD GAS PH 7.442 (7.35-7.45); ARTERIAL BLOOD GAS PO2 90.7 (80-90)
[2020-12-01 12:18] LABS: ABG BASE EXCESS 9.4 mmol/L (-2.0-2.0); ARTERIAL BLOOD GAS PH 7.433 (7.35-7.45); ARTERIAL BLOOD GAS PO2 89.3 (80-90)
[2020-12-02] VITALS (12 sets, daily range): BP systolic 89–119; BP diastolic 53–73
[2020-12-02 06:16] LABS: ALBUMIN 1.5 gm/dl (3.1-4.5); ALKALINE PHOSPHATASE 112 U/L (45-117); BASO % 0.5 % (0.0-1.0); BUN 21 mg/dl (7-24); CHLORIDE 104 mmol/L (98-107); CREATININE 0.46 mg/dL (0.70-1.30); EOS # 0.1 10*3/uL (0.0-0.4); EOS % 1.6 % (1.0-4.0); HEMATOCRIT 30.9 % (42.0-52.0); LYMPH # 1.2 10*3/uL (1.3-4.4); LYMPH % 19.9 % (27.0-41.0); MEAN CELL VOLUME 97.8 fl (80.0-94.0); MEAN CORPUSCULAR HGB 28.5 pg (27.0-31.0); MEAN CORPUSCULAR HGB CONC 29.1 g/dl (33.0-37.0); MEAN PLATELET VOLUME 10.7 fl (9.6-12.3); MONO # 0.4 10*3/uL (0.1-1.0); MONO % 6.4 % (3.0-9.0); NEUT # 4.3 10*3/uL (2.3-7.9); NEUT % 71.1 % (47.0-73.0); PLATELET COUNT AUTOMATED 244 10*3/uL (130-400); POTASSIUM 4.5 mmol/L (3.5-5.1); RED BLOOD COUNT 3.16 10*6/uL (4.50-5.90); RED CELL DISTRI WIDTH 14.7 % (0-14.5); SGOT/AST 10 IU/L (3-35); SGPT/ALT 12 U/L (12-78); SODIUM 140 mmol/L (136-145); TOTAL PROTEIN 6.3 gm/dL (6.4-8.2); TRIGLYCERIDES 157 mg/dl (<150); WHITE BLOOD COUNT 6.1 10*3/uL (4.8-10.8)
[2020-12-02 08:15] LABS: ABG BASE EXCESS 9.3 mmol/L (-2.0-2.0); ARTERIAL BLOOD GAS PH 7.39 (7.35-7.45); ARTERIAL BLOOD GAS PO2 110.3 (80-90)
[2020-12-02 13:02] LABS: ABG BASE EXCESS 12.8 mmol/L (-2.0-2.0); ARTERIAL BLOOD GAS PH 7.425 (7.35-7.45); ARTERIAL BLOOD GAS PO2 83.3 (80-90)
[2020-12-02 15:51] LABS: ABG BASE EXCESS 13.7 mmol/L (-2.0-2.0); ARTERIAL BLOOD GAS PH 7.428 (7.35-7.45); ARTERIAL BLOOD GAS PO2 82.1 (80-90)
[2020-12-03] VITALS (12 sets, daily range): BP systolic 90–124; BP diastolic 51–79
[2020-12-03 06:32] LABS: BASO % 0.2 % (0.0-1.0); EOS # 0.1 10*3/uL (0.0-0.4); HEMATOCRIT 29.3 % (42.0-52.0); LYMPH % 17.5 % (27.0-41.0); MEAN CORPUSCULAR HGB 30.1 pg (27.0-31.0); MEAN CORPUSCULAR HGB CONC 30.7 g/dl (33.0-37.0); MEAN PLATELET VOLUME 11.4 fl (9.6-12.3); MONO # 0.4 10*3/uL (0.1-1.0); NEUT # 4.3 10*3/uL (2.3-7.9); NEUT % 72.8 % (47.0-73.0); PLATELET COUNT AUTOMATED 227 10*3/uL (130-400); RED BLOOD COUNT 2.99 10*6/uL (4.50-5.90); WHITE BLOOD COUNT 5.9 10*3/uL (4.8-10.8)
[2020-12-03 06:49] LABS: ALBUMIN 1.7 gm/dl (3.1-4.5); ALKALINE PHOSPHATASE 103 U/L (45-117); BUN 20 mg/dl (7-24); CHLORIDE 99 mmol/L (98-107); CREATININE 0.45 mg/dL (0.70-1.30); POTASSIUM 4.5 mmol/L (3.5-5.1); SGOT/AST 22 IU/L (3-35); SODIUM 141 mmol/L (136-145); TOTAL PROTEIN 6.2 gm/dL (6.4-8.2)
[2020-12-03 07:49] LABS: SGPT/ALT 18 U/L (12-78)
[2020-12-03 08:11] LABS: ABG BASE EXCESS 11.7 mmol/L (-2.0-2.0); ARTERIAL BLOOD GAS PH 7.416 (7.35-7.45); ARTERIAL BLOOD GAS PO2 87.6 (80-90)
[2020-12-03 18:02] LABS: ABG BASE EXCESS 10.6 mmol/L (-2.0-2.0); ARTERIAL BLOOD GAS PH 7.432 (7.35-7.45); ARTERIAL BLOOD GAS PO2 81.8 (80-90)
[2020-12-04] VITALS (12 sets, daily range): BP systolic 91–163; BP diastolic 50–75
[2020-12-04 06:00] LABS: BASO % 0.3 % (0.0-1.0); EOS # 0.2 10*3/uL (0.0-0.4); EOS % 2.7 % (1.0-4.0); HEMATOCRIT 28.7 % (42.0-52.0); LYMPH # 1.2 10*3/uL (1.3-4.4); MEAN CELL VOLUME 98.6 fl (80.0-94.0); MEAN CORPUSCULAR HGB 29.9 pg (27.0-31.0); MEAN CORPUSCULAR HGB CONC 30.3 g/dl (33.0-37.0); MONO # 0.4 10*3/uL (0.1-1.0); MONO % 6.8 % (3.0-9.0); NEUT % 68.5 % (47.0-73.0); PLATELET COUNT AUTOMATED 242 10*3/uL (130-400); RED BLOOD COUNT 2.91 10*6/uL (4.50-5.90); WHITE BLOOD COUNT 5.9 10*3/uL (4.8-10.8)
[2020-12-04 06:18] LABS: ALBUMIN 1.5 gm/dl (3.1-4.5); BUN 19 mg/dl (7-24); CHLORIDE 103 mmol/L (98-107); CREATININE 0.48 mg/dL (0.70-1.30); POTASSIUM 4.2 mmol/L (3.5-5.1); SGOT/AST 18 IU/L (3-35); SGPT/ALT 18 U/L (12-78); SODIUM 141 mmol/L (136-145); TOTAL PROTEIN 6.1 gm/dL (6.4-8.2)
[2020-12-04 06:21] LABS: ALKALINE PHOSPHATASE 99 U/L (45-117)
[2020-12-04 07:57] LABS: ARTERIAL BLOOD GAS PH 7.451 (7.35-7.45); ARTERIAL BLOOD GAS PO2 63.9 (80-90)
[2020-12-04 13:29] LABS: ABG BASE EXCESS 9.3 mmol/L (-2.0-2.0); ARTERIAL BLOOD GAS PH 7.452 (7.35-7.45)
[2020-12-04 15:51] LABS: ABG BASE EXCESS 7.8 mmol/L (-2.0-2.0); ARTERIAL BLOOD GAS PH 7.455 (7.35-7.45); ARTERIAL BLOOD GAS PO2 80.2 (80-90)
[2020-12-05] VITALS (11 sets, daily range): BP systolic 105–139; BP diastolic 52–74
[2020-12-05 06:00] LABS: BASO % 0.2 % (0.0-1.0); EOS # 0.2 10*3/uL (0.0-0.4); EOS % 2.4 % (1.0-4.0); HEMATOCRIT 30.9 % (42.0-52.0); LYMPH # 1.3 10*3/uL (1.3-4.4); LYMPH % 20.5 % (27.0-41.0); MEAN CORPUSCULAR HGB 28.8 pg (27.0-31.0); MEAN CORPUSCULAR HGB CONC 29.1 g/dl (33.0-37.0); MEAN PLATELET VOLUME 10.8 fl (9.6-12.3); MONO # 0.5 10*3/uL (0.1-1.0); MONO % 7.6 % (3.0-9.0); NEUT # 4.2 10*3/uL (2.3-7.9); NEUT % 68.8 % (47.0-73.0); PLATELET COUNT AUTOMATED 273 10*3/uL (130-400); RED BLOOD COUNT 3.12 10*6/uL (4.50-5.90); RED CELL DISTRI WIDTH 15.2 % (0-14.5); WHITE BLOOD COUNT 6.2 10*3/uL (4.8-10.8)
[2020-12-05 06:02] LABS: BUN 21 mg/dl (7-24); CHLORIDE 109 mmol/L (98-107); CREATININE 0.49 mg/dL (0.70-1.30); SODIUM 145 mmol/L (136-145)
[2020-12-05 08:17] LABS: ABG BASE EXCESS 8.6 mmol/L (-2.0-2.0); ARTERIAL BLOOD GAS PH 7.448 (7.35-7.45); ARTERIAL BLOOD GAS PO2 76.4 (80-90)
[2020-12-05 10:55] LABS: ABG BASE EXCESS 8.3 mmol/L (-2.0-2.0); ARTERIAL BLOOD GAS PH 7.462 (7.35-7.45)
[2020-12-05 14:18] LABS: ABG BASE EXCESS 8.5 mmol/L (-2.0-2.0); ARTERIAL BLOOD GAS PH 7.47 (7.35-7.45); ARTERIAL BLOOD GAS PO2 74.9 (80-90)
[2020-12-05 16:06] LABS: ACID FAST SPEC PROCESSING Concentration (.)
[2020-12-06] VITALS (12 sets, daily range): BP systolic 100–126; BP diastolic 53–86
[2020-12-06 06:30] LABS: BASO % 0.3 % (0.0-1.0); EOS # 0.2 10*3/uL (0.0-0.4); EOS % 3.2 % (1.0-4.0); HEMATOCRIT 31.2 % (42.0-52.0); LYMPH # 1.1 10*3/uL (1.3-4.4); LYMPH % 17.3 % (27.0-41.0); MEAN CELL VOLUME 98.7 fl (80.0-94.0); MEAN CORPUSCULAR HGB 29.1 pg (27.0-31.0); MEAN CORPUSCULAR HGB CONC 29.5 g/dl (33.0-37.0); MEAN PLATELET VOLUME 10.5 fl (9.6-12.3); MONO # 0.5 10*3/uL (0.1-1.0); MONO % 7.8 % (3.0-9.0); NEUT # 4.4 10*3/uL (2.3-7.9); NEUT % 71.1 % (47.0-73.0); PLATELET COUNT AUTOMATED 308 10*3/uL (130-400); RED BLOOD COUNT 3.16 10*6/uL (4.50-5.90); RED CELL DISTRI WIDTH 15.3 % (0-14.5); WHITE BLOOD COUNT 6.2 10*3/uL (4.8-10.8)
[2020-12-06 06:43] LABS: BUN 21 mg/dl (7-24); CHLORIDE 111 mmol/L (98-107); CREATININE 0.47 mg/dL (0.70-1.30); POTASSIUM 3.9 mmol/L (3.5-5.1); SODIUM 146 mmol/L (136-145)
[2020-12-06 07:54] LABS: ABG BASE EXCESS 7.3 mmol/L (-2.0-2.0); ARTERIAL BLOOD GAS PH 7.484 (7.35-7.45); ARTERIAL BLOOD GAS PO2 99.3 (80-90)
[2020-12-06 12:21] LABS: ABG BASE EXCESS 5.3 mmol/L (-2.0-2.0); ARTERIAL BLOOD GAS PH 7.426 (7.35-7.45); ARTERIAL BLOOD GAS PO2 90.5 (80-90)
[2020-12-07] VITALS (12 sets, daily range): BP systolic 100–132; BP diastolic 59–77
[2020-12-07 06:15] LABS: BASO % 0.4 % (0.0-1.0); EOS # 0.3 10*3/uL (0.0-0.4); EOS % 5.2 % (1.0-4.0); HEMATOCRIT 31.5 % (42.0-52.0); LYMPH # 1.1 10*3/uL (1.3-4.4); LYMPH % 20.9 % (27.0-41.0); MEAN CELL VOLUME 99.4 fl (80.0-94.0); MEAN CORPUSCULAR HGB 29.7 pg (27.0-31.0); MEAN CORPUSCULAR HGB CONC 29.8 g/dl (33.0-37.0); MONO # 0.4 10*3/uL (0.1-1.0); NEUT # 3.5 10*3/uL (2.3-7.9); NEUT % 64.8 % (47.0-73.0); PLATELET COUNT AUTOMATED 301 10*3/uL (130-400); RED BLOOD COUNT 3.17 10*6/uL (4.50-5.90); RED CELL DISTRI WIDTH 15.1 % (0-14.5); WHITE BLOOD COUNT 5.4 10*3/uL (4.8-10.8)
[2020-12-07 06:31] LABS: BUN 24 mg/dl (7-24); CHLORIDE 110 mmol/L (98-107); CREATININE 0.46 mg/dL (0.70-1.30); POTASSIUM 3.9 mmol/L (3.5-5.1); SODIUM 145 mmol/L (136-145)
[2020-12-07 08:28] LABS: ABG BASE EXCESS 4.7 mmol/L (-2.0-2.0); ARTERIAL BLOOD GAS PH 7.417 (7.35-7.45); ARTERIAL BLOOD GAS PO2 99.2 (80-90)
[2020-12-08] VITALS (8 sets, daily range): BP systolic 110–139; BP diastolic 60–77
[2020-12-08 06:18] LABS: BASO % 0.4 % (0.0-1.0); EOS # 0.2 10*3/uL (0.0-0.4); HEMATOCRIT 32.3 % (42.0-52.0); LYMPH # 1.4 10*3/uL (1.3-4.4); LYMPH % 18.7 % (27.0-41.0); MEAN CELL VOLUME 98.5 fl (80.0-94.0); MEAN CORPUSCULAR HGB CONC 29.4 g/dl (33.0-37.0); MEAN PLATELET VOLUME 10.2 fl (9.6-12.3); MONO # 0.7 10*3/uL (0.1-1.0); NEUT # 5.2 10*3/uL (2.3-7.9); NEUT % 69.5 % (47.0-73.0); PLATELET COUNT AUTOMATED 340 10*3/uL (130-400); RED BLOOD COUNT 3.28 10*6/uL (4.50-5.90); WHITE BLOOD COUNT 7.5 10*3/uL (4.8-10.8)
[2020-12-08 06:19] LABS: BUN 32 mg/dl (7-24); CHLORIDE 113 mmol/L (98-107); CREATININE 0.54 mg/dL (0.70-1.30); POTASSIUM 4.2 mmol/L (3.5-5.1); SODIUM 149 mmol/L (136-145)
[2020-12-08 08:34] LABS: ABG BASE EXCESS 4.1 mmol/L (-2.0-2.0); ARTERIAL BLOOD GAS PH 7.404 (7.35-7.45); ARTERIAL BLOOD GAS PO2 126.5 (80-90)
[2020-12-08 12:37] LABS: ABG BASE EXCESS 5.9 mmol/L (-2.0-2.0); ARTERIAL BLOOD GAS PH 7.416 (7.35-7.45); ARTERIAL BLOOD GAS PO2 112.4 (80-90)
[2020-12-09] VITALS: BP 142/82
[2020-12-09 04:00] VITALS: BP 124/67
[2020-12-09 06:06] LABS: BUN 32 mg/dl (7-24); CHLORIDE 115 mmol/L (98-107); POTASSIUM 3.5 mmol/L (3.5-5.1); SODIUM 150 mmol/L (136-145)
[2020-12-09 06:19] LABS: BASO % 0.2 % (0.0-1.0); EOS % 0.5 % (1.0-4.0); HEMATOCRIT 30.2 % (42.0-52.0); LYMPH # 1.3 10*3/uL (1.3-4.4); LYMPH % 15.6 % (27.0-41.0); MEAN CELL VOLUME 98.4 fl (80.0-94.0); MEAN CORPUSCULAR HGB CONC 29.5 g/dl (33.0-37.0); MEAN PLATELET VOLUME 10.4 fl (9.6-12.3); MONO # 0.6 10*3/uL (0.1-1.0); MONO % 6.7 % (3.0-9.0); NEUT # 6.3 10*3/uL (2.3-7.9); NEUT % 76.5 % (47.0-73.0); PLATELET COUNT AUTOMATED 295 10*3/uL (130-400); RED BLOOD COUNT 3.07 10*6/uL (4.50-5.90); WHITE BLOOD COUNT 8.3 10*3/uL (4.8-10.8)
[2020-12-09 07:52] LABS: ABG BASE EXCESS 3.3 mmol/L (-2.0-2.0); ARTERIAL BLOOD GAS PH 7.476 (7.35-7.45); ARTERIAL BLOOD GAS PO2 60.8 (80-90)
[2020-12-09 08:00] VITALS: BP 129/72
[2020-12-09 12:00] VITALS: BP 130/59
[2020-12-09 12:09] LABS: ABG BASE EXCESS 4.5 mmol/L (-2.0-2.0); ARTERIAL BLOOD GAS PH 7.428 (7.35-7.45); ARTERIAL BLOOD GAS PO2 104.1 (80-90)
[2020-12-09 16:00] VITALS: BP 125/65
[2020-12-09 20:00] VITALS: BP 124/59
[2020-12-10] VITALS: BP 116/56
[2020-12-10 04:00] VITALS: BP 107/60; BP 122/70
[2020-12-10 05:57] LABS: BASO % 0.3 % (0.0-1.0); EOS # 0.2 10*3/uL (0.0-0.4); EOS % 2.1 % (1.0-4.0); HEMATOCRIT 28.8 % (42.0-52.0); LYMPH # 1.5 10*3/uL (1.3-4.4); LYMPH % 19.8 % (27.0-41.0); MEAN CELL VOLUME 98.3 fl (80.0-94.0); MEAN CORPUSCULAR HGB 28.7 pg (27.0-31.0); MEAN CORPUSCULAR HGB CONC 29.2 g/dl (33.0-37.0); MEAN PLATELET VOLUME 10.7 fl (9.6-12.3); MONO # 0.4 10*3/uL (0.1-1.0); NEUT # 5.2 10*3/uL (2.3-7.9); NEUT % 71.1 % (47.0-73.0); PLATELET COUNT AUTOMATED 289 10*3/uL (130-400); RED BLOOD COUNT 2.93 10*6/uL (4.50-5.90); RED CELL DISTRI WIDTH 15.2 % (0-14.5); WHITE BLOOD COUNT 7.3 10*3/uL (4.8-10.8)
[2020-12-10 05:59] LABS: BUN 26 mg/dl (7-24); CHLORIDE 117 mmol/L (98-107); CREATININE 0.38 mg/dL (0.70-1.30); POTASSIUM 3.3 mmol/L (3.5-5.1); SODIUM 152 mmol/L (136-145)
[2020-12-10 07:48] LABS: ABG BASE EXCESS 3.4 mmol/L (-2.0-2.0); ARTERIAL BLOOD GAS PH 7.461 (7.35-7.45); ARTERIAL BLOOD GAS PO2 114.5 (80-90)
[2020-12-10 08:00] VITALS: BP 102/67
[2020-12-10] MEDS ORDERED: FLAGYL500 MG PEG (10:29)
[2020-12-10] MEDS ORDERED: VANCOMYCIN2 GM/20 ML IV (10:29)
[2020-12-10] MEDS ORDERED: CEFTRIAXONE1 GM IJ (10:29)
[2020-12-10 12:00] VITALS: BP 117/75
[2020-12-10 16:00] VITALS: BP 107/65
[2021-01-17 12:06] LABS: ACID FAST CULTURE Negative (.)
== END 2020-12-10 17:31 | DRG 3 ==
LOC: ED 16:43 → EDHOLD 20:18 → ICCU 20:18 → 5E 20:18 → 4E 11-11 21:17 → ICCU 11-15 08:21
PROVIDERS: Emergency Medicine; Family Medicine; Hospitalist; Internal Medicine; Internal Medicine Critical Care Medicine; Podiatrist; Social Worker Clinical; Student in an Organized Health Care Education/Training Program; ADMIT Internal Medicine; ATTEND Internal Medicine
PROC: 0QS904Z Reposition Left Femoral Shaft with Internal Fixation Device, Open Approach (ICD-10-PCS; 2020-11-11)
PROC: 0QSC04Z Reposition Left Lower Femur with Internal Fixation Device, Open Approach (ICD-10-PCS; 2020-11-11)
PROC: XW033E5 Introduction of Remdesivir Anti-infective into Peripheral Vein, Percutaneous Approach, New Technology Group 5 (ICD-10-PCS; 2020-11-14)
PROC: 5A0935A Assistance with Respiratory Ventilation, Less than 24 Consecutive Hours, High Flow/Velocity Cannula (ICD-10-PCS; 2020-11-14)
PROC: 5A1955Z Respiratory Ventilation, Greater than 96 Consecutive Hours (ICD-10-PCS; principal; 2020-11-15)
PROC: 0BH18EZ Insertion of Endotracheal Airway into Trachea, Via Natural or Artificial Opening Endoscopic (ICD-10-PCS; 2020-11-15)
PROC: 02HV33Z Insertion of Infusion Device into Superior Vena Cava, Percutaneous Approach (ICD-10-PCS; 2020-11-15)
PROC: B548ZZA Ultrasonography of Superior Vena Cava, Guidance (ICD-10-PCS; 2020-11-15)
PROC: 03HY32Z Insertion of Monitoring Device into Upper Artery, Percutaneous Approach (ICD-10-PCS; 2020-11-15)
PROC: B54MZZA Ultrasonography of Right Upper Extremity Veins, Guidance (ICD-10-PCS; 2020-11-15)
PROC: 5A0935A Assistance with Respiratory Ventilation, Less than 24 Consecutive Hours, High Flow/Velocity Cannula (ICD-10-PCS; 2020-11-15)
PROC: 5A0935A Assistance with Respiratory Ventilation, Less than 24 Consecutive Hours, High Flow/Velocity Cannula (ICD-10-PCS; 2020-11-17)
PROC: 5A09357 Assistance with Respiratory Ventilation, Less than 24 Consecutive Hours, Continuous Positive Airway Pressure (ICD-10-PCS; 2020-11-17)
PROC: 5A09357 Assistance with Respiratory Ventilation, Less than 24 Consecutive Hours, Continuous Positive Airway Pressure (ICD-10-PCS; 2020-11-19)
PROC: 5A09357 Assistance with Respiratory Ventilation, Less than 24 Consecutive Hours, Continuous Positive Airway Pressure (ICD-10-PCS; 2020-11-20)
PROC: 5A09357 Assistance with Respiratory Ventilation, Less than 24 Consecutive Hours, Continuous Positive Airway Pressure (ICD-10-PCS; 2020-11-22)
PROC: 5A09357 Assistance with Respiratory Ventilation, Less than 24 Consecutive Hours, Continuous Positive Airway Pressure (ICD-10-PCS; 2020-11-23)
PROC: 5A09357 Assistance with Respiratory Ventilation, Less than 24 Consecutive Hours, Continuous Positive Airway Pressure (ICD-10-PCS; 2020-11-24)
PROC: 5A09357 Assistance with Respiratory Ventilation, Less than 24 Consecutive Hours, Continuous Positive Airway Pressure (ICD-10-PCS; 2020-11-25)
PROC: 5A09357 Assistance with Respiratory Ventilation, Less than 24 Consecutive Hours, Continuous Positive Airway Pressure (ICD-10-PCS; 2020-11-26)
PROC: 0BC18ZZ Extirpation of Matter from Trachea, Via Natural or Artificial Opening Endoscopic (ICD-10-PCS; 2020-12-04)
PROC: 0BC98ZZ Extirpation of Matter from Lingula Bronchus, Via Natural or Artificial Opening Endoscopic (ICD-10-PCS; 2020-12-04)
PROC: 0BC48ZZ Extirpation of Matter from Right Upper Lobe Bronchus, Via Natural or Artificial Opening Endoscopic (ICD-10-PCS; 2020-12-04)
PROC: 0BC88ZZ Extirpation of Matter from Left Upper Lobe Bronchus, Via Natural or Artificial Opening Endoscopic (ICD-10-PCS; 2020-12-04)
PROC: 0BC58ZZ Extirpation of Matter from Right Middle Lobe Bronchus, Via Natural or Artificial Opening Endoscopic (ICD-10-PCS; 2020-12-04)
PROC: 0BC38ZZ Extirpation of Matter from Right Main Bronchus, Via Natural or Artificial Opening Endoscopic (ICD-10-PCS; 2020-12-04)
PROC: 0BC78ZZ Extirpation of Matter from Left Main Bronchus, Via Natural or Artificial Opening Endoscopic (ICD-10-PCS; 2020-12-04)
PROC: 0BC68ZZ Extirpation of Matter from Right Lower Lobe Bronchus, Via Natural or Artificial Opening Endoscopic (ICD-10-PCS; 2020-12-04)
PROC: 0BCB8ZZ Extirpation of Matter from Left Lower Lobe Bronchus, Via Natural or Artificial Opening Endoscopic (ICD-10-PCS; 2020-12-04)
PROC: 0B110F4 Bypass Trachea to Cutaneous with Tracheostomy Device, Open Approach (ICD-10-PCS; 2020-12-07)
PROC: 0DH68UZ Insertion of Feeding Device into Stomach, Via Natural or Artificial Opening Endoscopic (ICD-10-PCS; 2020-12-07)
DX: U07.1 COVID-19 (principal); S72.342A Displaced spiral fracture of shaft of left femur, initial encounter for closed fracture; N17.0 Acute kidney failure with tubular necrosis; J12.82 Pneumonia due to coronavirus disease 2019; I50.43 Acute on chronic combined systolic (congestive) and diastolic (congestive) heart failure; I26.93 Single subsegmental thrombotic pulmonary embolism without acute cor pulmonale; J80 Acute respiratory distress syndrome; E87.2 Acidosis; E44.0 Moderate protein-calorie malnutrition; I48.20 Chronic atrial fibrillation, unspecified; Z68.42 Body mass index [BMI] 45.0-49.9, adult; E87.3 Alkalosis; N39.0 Urinary tract infection, site not specified; Z16.12 Extended spectrum beta lactamase (ESBL) resistance; J98.11 Atelectasis; F33.9 Major depressive disorder, recurrent, unspecified; R04.2 Hemoptysis; R78.81 Bacteremia; Z99.11 Dependence on respirator [ventilator] status; E87.1 Hypo-osmolality and hyponatremia; I13.0 Hypertensive heart and chronic kidney disease with heart failure and stage 1 through stage 4 chronic kidney disease, or unspecified chronic kidney disease; G25.81 Restless legs syndrome; I89.0 Lymphedema, not elsewhere classified; E11.69 Type 2 diabetes mellitus with other specified complication; N18.9 Chronic kidney disease, unspecified; E11.40 Type 2 diabetes mellitus with diabetic neuropathy, unspecified; E66.01 Morbid (severe) obesity due to excess calories; I25.10 Atherosclerotic heart disease of native coronary artery without angina pectoris; E78.5 Hyperlipidemia, unspecified; D72.810 Lymphocytopenia; E11.65 Type 2 diabetes mellitus with hyperglycemia; I48.0 Paroxysmal atrial fibrillation; M50.30 Other cervical disc degeneration, unspecified cervical region; D64.9 Anemia, unspecified; M17.12 Unilateral primary osteoarthritis, left knee; S91.109A Unspecified open wound of unspecified toe(s) without damage to nail, initial encounter; E87.6 Hypokalemia; E83.39 Other disorders of phosphorus metabolism; B96.20 Unspecified Escherichia coli [E. coli] as the cause of diseases classified elsewhere; E11.22 Type 2 diabetes mellitus with diabetic chronic kidney disease; D72.819 Decreased white blood cell count, unspecified; G47.33 Obstructive sleep apnea (adult) (pediatric); S80.02XA Contusion of left knee, initial encounter; B95.7 Other staphylococcus as the cause of diseases classified elsewhere; Z88.0 Allergy status to penicillin; W18.39XA Other fall on same level, initial encounter; Y93.89 Activity, other specified; Y92.89 Other specified places as the place of occurrence of the external cause; Y99.8 Other external cause status; Z88.8 Allergy status to other drugs, medicaments and biological substances; Z86.718 Personal history of other venous thrombosis and embolism; Z86.711 Personal history of pulmonary embolism; I25.2 Old myocardial infarction; Z89.429 Acquired absence of other toe(s), unspecified side; Z90.49 Acquired absence of other specified parts of digestive tract